=== PATIENT | female | born 1985 | race Caucasian/White ===

== ENCOUNTER 2025-04-21 02:06 | Emergency (ER) | payer OTHER, SELFPAY ==
--- OUTSIDE RECORDS SUMMARY | 2024-04-22 09:00 | XMS_ITS | Continuity of Care Document ---
Author Organization [facility] Address [address] [place] [address] Phone Care Team Providers Care Mushroom Picker Name Role Phone Alan CORTEZ, Iram Unavailable Unavailable Allergies, Adverse Reactions, Alerts Substance Reaction Status Criticality trimethoprim Active No Information sulfamethoxazole Active No Informat ion Medications Medication Instructions Dosage Effective Dates (start - stop) Status Comments isosorbide 20 mg-hydralazine 37.5 mg tablet take 2 tablet by oral route 3 times every day 2.00 tablet - Active fenofibrate 40 mg tablet take 2 tablet by oral route every day 80 MG - Active atorvastatin 40 mg tablet take 1 tablet by oral route every day 40 MG - Active lisinopril 5 mg tablet take 1 tablet by oral route every day 5 MG - Active clopidogrel 75 mg tablet take 1 tablet by oral route every day 75 MG - Active pregabalin 150 mg capsule take 1 capsule by oral route 2 times every day 150 MG - Active Jardiance 25 mg tablet take 1 tablet by oral route every day in the morning 25 MG - Active Trulicity 4.5 mg/0.5 mL subcutaneous pen injector inject (4.5MG) by subcutaneous route every week 4.5 MG - Active amoxicillin 500 mg capsule take 1 capsule by oral route every 8 hours 500 MG - No Longer Active ibuprofen 800 mg tablet take 1 tablet by oral route 3 times every day with food 800 MG - No Longer Active Vazalore 81 mg capsule take 1 capsule by oral route every day 81 MG - No Longer Active Procedures Procedure Date Oral Hygiene Instruction Intraoral-periapical 1st Film Limited Oral Eval Covid-19 Vaccine Administration 024 Covid-19 Vaccine, 50 Mcg Moderna 12y Plu s IMMUNIZATION ADMIN FLU VAC NO PRSV 4 RODRÍGUEZ 3 YRS+ Limited Oral Eval Nutrit Couns For Control Of Ralph Dis Mar Panoramic Film Oral Hygiene Instruction High Risk Intraoral-periapical 1st Film 3 Limited Oral Eval Extract; Erupted Th/exposted Rt 023 Bitewig-single Film Intraoral-periapical 1st Film 2 [id number] Additional Jun Nutrit Couns For Control Of Ralph Dis Jun Limited Oral Eval Extract; Erupted Th/exposted Rt 022 Extract; Erupted Th/exposted Rt 022 Pfizer COVID Vaccine Admin Dose 2 COVID-19 Pfizer Pfizer COVID Vaccine Admin Dose 1 COVID-19 Pfizer Limited Oral Eval Panoramic Film Tobacco Counseling Oral Hygiene Instruction Limited Oral Eval Intraoral-periapical 1st Film 5 Resin 4+ W/incis Angle Anterior 015 Extract; Erupted Th/exposted Rt 015 Extract; Erupted Th/exposted Rt 014 Oral Hygiene Instruction Comp Oral Eval New/estab Patient 2013 Intraoral-complete Series (bw) 14 Tobacco Counseling Oral Hygiene Instruction EST FP MEDICAID ODH SPECIMEN HANDLING (GC/CHLAMYDIA) Jun EST FP MEDICAID URINE TEST ODH SPECIMEN HANDLING (GC/CHLAMYDIA) Mar OFFICE/OUTPATIENT VISIT, EST INSERT INTRAUTERINE DEVICE URINE TEST Levonorgestrel iu contracept OFFICE/OUTPATIENT VISIT, NEW Condoms URINE TEST OFFICE/OUTPATIENT VISIT, EST URINE TEST Advance Directives Directive Yes / No Effective Date File Name No Information Encounters Encounter Description Practice Location Reason(s) For Visit Diagnoses Date Provider Providers Copied on Encounter [facility], [address] [place] [address], [id number], [place] tel:[phone] Dental Clinic dental limited (chief complaint) Encounter for screening for dental disorders 4 Alan Walden. . tel:[phone] [facility], [address] [place] [address], [id number], [place] tel:[phone] [facility] No Information 4 Visci DO Efraín. [address] [place] [address], [id number], [place]. tel:[phone] [facility], [address] [place] [address], [id number], [place] tel:[phone] [facility] No Information 3 Visci DO Efraín. [address], [place], [id number], [place]. tel:[phone] [facility], [address] [place] [address], [id number], [place] tel:[phone] Dental Clinic ext (chief complaint) Encounter for screening for dental disorders 3 Dereck Dunbar. [address] [place] [address], [id number], [place]. tel:[phone] [facility], [address] [place] [address], [id number], [place] tel:[phone] Dental Clinic DN (chief complaint) Encounter for screening for dental disorders 3 [facility] [address] [place], [address], [place]. tel:[phone] [facility], [address], [place], [id number], [place] tel:[phone] Dental Clinic er (chief complaint) Encounter for screening for dental disorders 3 [facility] [address] [place], [address], [place]. tel:[phone] [facility], [address], [place], [id number], [place] tel:[phone] Dental Clinic ER (chief complaint) Encounter for screening for dental disordersDental root caries 2 [facility]. [address] [place], [address], [place]. tel:[phone] [facility], [address], [place], [id number], [place] tel:[phone] [facility] No Information 1 Visci DO Efrían. [address], [place], [id number], [place]. tel:[phone] [facility], [address], [place], [id number], [place] tel:[phone] [facility] No Information 1 Visci DO Efraín. [address], [place], [id number], [place]. tel:[phone] [facility], [address], [place], [id number], [place] tel:[phone] Dental Clinic Dental Limited (chief complaint) Encounter for screening for dental disorders 9 [facility] Too[facility]it. [address], [place], [id number], [place]. tel:[phone] [facility], [address], [place], [id number], [place] tel:[phone] Dental Clinic Dental examination 5 [facility] October. [address] [place], [id number], [place]. tel:[phone] [facility], [address] [place], [id number], [place] tel:[phone] Dental Clinic Dental examination [facility] October. [address] [place], [id number], [place]. tel:[phone] [facility] [address] [facility] [place] [id number] [place] tel:[phone] Dental Clinic Dental examination [facility] October. [address] [place], [id number], [place]. tel:[phone] [facility], [address] [facility] [place] [id number], [place] tel:[phone] Dental Clinic Dental examination 4 [facility] October. [address] [facility] [place] [id number], [place]. tel:[phone] [facility], [address] [place], [id number], [place] tel:[phone] Dental Clinic Dental examination 4 [facility] October. [address] [facility] [place] [id number], [place]. tel:[phone] [facility], [address] [facility], [id number], [place] tel:[phone] [facility] No Information Dec-0 4- 2 Lamp Caitlyn. [address] [facility] [place] [id number], [place]. tel:[phone] [facility], [address] [facility], [id number], [place] tel:[phone] [facility] No Information Sep-0 - 1 Lamp Caitlyn. [address] [facility], [id number], [place]. tel:[phone] OFFICE/OUTPAT IENT VISIT, [facility], [address], [place], [id number], [place] tel:[phone] [facility] No Information Mar-0 9-201 0 Lamp Caitlyn. [address], [place], [id number], [place]. tel:[phone] [facility], [address], [place], [id number], [place] tel:[phone] [facility] No Information 9-201 0 Lamp Caitlyn. [address], [place], [id number], [place]. tel:[phone] OFFICE/OUTPAT IENT VISIT, [facility], [address], [place], [id number], [place] tel:[phone] [facility] No Information 0 5-201 0 Lamp Caitlyn. [address], [place], [id number], [place]. tel:[phone] OFFICE/OUTPAT IENT VISIT, [facility], [address], [place], [id number], [place] tel:[phone] [facility] No Information 0-200 8 Visci DO Efraín. [address], [place], [id number], [place]. tel:[phone] Family History Family Member Type Diagnosis Age At Onset No Information Immunizations Vaccine Date Status Comments Spikevax 12y+ administered Source: New Im munization Record Flulaval/ Fluarix administered Source: Ne w Immunization Record Pfizer COVID administered Source: New Imm unization Record Pfizer COVID administered Source: New Imm unization Record Payers Payer name Insurance type Covered libertarian ID Authoriza tion(s) [facility] [facility] [id number] D Medicaid [facility] [id number] [employer] Medicaid CFC 0223 [id number] [employer] Medicaid CFC 0223 [id number] Medicaid Wrap - [facility] [id number] [place] [id number] [place] [id number] Social History Type Description Quantity Date Captured Comments Alcohol Use Details Unknown Caffeine Use Details Unknown Tobacco Use Status Moderate cigarette s moker (10-19 cigs/day) Smoking Status Heavy tobacco smoker Sex Female Sexual Orientation Straight or heterosexual Gender Identity Female Vital Signs Date / Time: Height Weight BMI Pulse Rate Blood Pressure Temperature Respiratory Rate Body Surface Area Head Circumference Head Circ. Percentile Wt./All. Percentile BMI percentile Pulse Ox Inhaled Ox 1:01 PM 64.00 in 102.512 kg (226.00 lbs) 38.7 9 kg/m eter (2) Chief Complaint And Reason For Visit From encounter dated '04/22/2024 13:00'. dental limited (chief complaint). Description: dental limited Reason For Referral Reason For Referral No Information Plan Of Treatment Date Type Action Status Goal Depression screening. Due on due Goal Unhealthy drug use screening . Due on due Goal Hepatitis C screening. Due o n due Goal RLP. Due on due Goal Tdap. Due on due Goal Hep A. Due on du e Goal HPV. Due on due Goal Tdap Vaccine. Due on 2023 due Goal PRAPARE ASSESSMENT. Due on O due Goal Influenza vaccine. Due on Oc due Goal Depression screening. Due on due Goal PRAPARE ASSESSMENT. Due on F due Goal Influenza vaccine. Due on due Goal RLP. Due on due Goal Tdap Vaccine. Due on 2023 due Goal HPV. Due on due Goal Hepatitis C screening. Due o n due Goal Unhealthy drug use screening . Due on due Goal Tdap. Due on due Goal Hep A. Due on du e Goal RLP. Due on due Goal Influenza vaccine. Due on No due Goal Hep A. Due on du e Goal Tdap Vaccine. Due on 2022 due Goal Unhealthy drug use screening . Due on due Goal Tdap. Due on due Goal Depression screening. Due on due Goal PRAPARE ASSESSMENT. Due on N due Goal Hepatitis C screening. Due o n due Goal HPV. Due on due Goal Tdap Vaccine. Due on 2022 due Goal RLP. Due on due Goal Hep A. Due on du e Goal Depression screening. Due on due Goal Influenza vaccine. Due on Se due Goal PRAPARE ASSESSMENT. Due on S due Goal Tdap. Due on due Goal Tdap. Due on due Goal Depression screening. Due on due Goal PRAPARE ASSESSMENT. Due on M due Goal Influenza vaccine. Due on Ma due Goal Tdap Vaccine. Due on 2022 due Goal RLP. Due on due Goal Hep A. Due on du e Goal Hep A. Due on du e Goal RLP. Due on due Goal Influenza vaccine. Due on due Goal Tdap. Due on due Goal PRAPARE ASSESSMENT. Due on due Goal Depression screening. Due on due Goal PRAPARE ASSESSMENT. Due on due Goal Tdap. Due on due Goal RLP. Due on due Goal Depression screening. Due on due Goal Influenza vaccine. Due on due History Of Present Illness Encounter Date Complaint History Of Prese nt Illness dental limited dental limited ext ext DN er er ER Dental Limited Dental Limited Functional Status Date Functional Assessmen t No Information Instructions Date Instruction Additional Infor mation No Information Assessments Type Assessment Date No Information Patient Care Teams Name Effective Dates (start - stop) Status Members No Information
[2025-04-21 02:09] VITALS: BP 125/57; PULSE 78; TEMP 36.6; O2SAT 99; BMI 40.1
--- NOTE | 2025-04-21 02:17 | ED_ITS ---
HPI HPI - Extremity Injury (Lower) General Chief Complaint: Extremity Injury, Lower Stated Complaint: FALL Time Seen by Provider: 04/21/25 02:13 Source: patient Mode of arrival: ambulance History of Present Illness HPI Narrative: slipped at work and fell onto her left knee. She then fell onto her buttocks. Denies pain of her buttocks but complains of pain of her knee. Transferred to the ER via Squad. Denies other injury Related Data Home Medications ?Medication ?Instructions ?Recorded ?Confirmed atorvastatin 40 mg tablet mg 04/21/25 clopidogrel 75 mg tablet mg 04/21/25 ergocalciferol (vitamin D2) 1,250 04/21/25 mcg (50,000 unit) capsule fenofibrate nanocrystallized 145 mg PO 04/21/25 mg tablet isosorbide mononitrate 30 mg mg PO 04/21/25 tablet,extended release 24 hr lisinopril 5 mg tablet mg 04/21/25 metoprolol tartrate 25 mg tablet mg 04/21/25 pregabalin 150 mg capsule mg 04/21/25 Allergies Allergy/AdvReac Type Severity Reaction Status Date / Time sulfamethoxazole (From Allergy Unknown Unknown Verified 04/21/25 02:11 Bactrim) trimethoprim (From Bactrim) Allergy Unknown Unknown Verified 04/21/25 02:11 Review of Systems ROS Status of ROS 10 or more systems reviewed and unremark able except as noted in history and below PFSH PFSH Social History Little interest or pleasure in doing things: not at all Feeling down, depressed, or hopeless: not at all Exam Constitutional Vital Signs, click to edit/add: Last Vital Signs Temp 97.9 F 04/21/25 02:09 Pulse 78 04/21/25 02:09 Resp 18 04/21/25 02:09 BP 125/57 04/21/25 02:09 Pulse Ox 99 04/21/25 02:09 O2 Del Method Room Air 04/21/25 02:09 Common normals: no apparent distress, average body habitus, oriented x3, no limitations, healthy appearing, alert and well nourished [facility] Common normals: normocephalic and head/scalp atraumatic Eye Common normals: EOMs intact bilaterally and conjunctivae normal Respiratory Common normals: normal respiratory effort, no retractions, no use of accessory muscles and clear to auscultation bilaterally Cardio Common normals: regular rate, regular rhythm, S1 normal heart sound and S2 normal heart sound Extremity Other: swelling overlying patella left knee Neuro Common normals: oriented x3, CN's II-XII intact bilaterally, moves all extremities and no focal motor deficits Psych Appearance: grossly normal Course Vital Signs Vital signs: Vital Signs Temperature 97.9 F 04/21/25 02:09 Pulse Rate 78 04/21/25 02:09 Respiratory Rate 18 04/21/25 02:09 Blood Pressure 125/57 04/21/25 02:09 Pulse Oximetry 99 04/21/25 02:09 Oxygen Delivery Method Room Air 04/21/25 02:09 Temperature 97.9 F 04/21/25 02:09 Pulse Rate 78 04/21/25 02:09 Respiratory Rate 18 04/21/25 02:09 Blood Pressure 125/57 04/21/25 02:09 Pulse Oximetry 99 04/21/25 02:09 Oxygen Delivery Method Room Air 04/21/25 02:09 MDM - Extremity Injury (Lower) MDM Narrative Medical decision making narrative: patient fell at work onto her left knee. Arrives via Squad. has focal swelling overlying the left patella. xray with comminuted fracture of the patella. Discussed with orthopedist Dr Murray and he said the patient could follow up with Dr Rivas tomorrow or she can follow up with orthopedics in [place]. Patient placed in knee immobilizer and discharged Discharge Plan Discharge Chief Complaint: Extremity Injury, Lower Clinical Impression: Comminuted fracture of left patella Patient Disposition: Home, Self-Care Prescriptions / Home Meds: No Action atorvastatin 40 mg tablet isosorbide mononitrate 30 mg tablet extended release 24 hr PO clopidogrel 75 mg tablet lisinopril 5 mg tablet ergocalciferol (vitamin D2) 1,250 mcg (50,000 unit) capsule metoprolol tartrate 25 mg tablet pregabalin 150 mg capsule fenofibrate nanocrystallized 145 mg tablet PO Print Language: Maltese Instructions: Crutch Instructions (ED), Patellar Fracture (ED) Additional Instructions: keep leg elevated . Follow up with Dr Rivas tomorrow Referrals: Raul Rivas DO [Physician, Orthopedics] - 04/22/25 Physician,Non-Staff, [Physician] - 1 week Discharge Date/Time: 04/21/25 03:42
--- NOTE | 2025-04-21 02:19 | XR_ITS ---
[facility] [place] [id number] Patient Name: EMI VAUGHN MRN: [id number] date: 1985 Sex: F Assigned Patient Location: ER Current Patient Location: Accession/Order Number: [id number] Exam Date: 04/21/2025 02:30 Report Date: 04/21/2025 07:23 At the request of: LOIS SHARMA MD Procedure: XR knee LT 3V LEFT KNEE - 3 views COMPARISON: None CLINICAL DATA: Left knee pain and swelling following fall. AP, lateral and internal oblique views were obtained. There is a comminuted, displaced intra-articular fracture at the mid and lower aspect of the patella. The remaining bony structures are intact. No dislocation is seen. A small amount of joint fluid is present. There is also mild anterior soft tissue swelling. XR/XR knee LT 3V IMPRESSION: COMMINUTED PATELLAR FRACTURE. Impression dictated by: Kim Anderson M.D. 04/21/2025 7:23 AM Dictation Location: [place] [address] Electronically authenticated by: [id number] Y Date: 04/21/2025 07:23
--- OUTSIDE RECORDS SUMMARY | 2025-04-21 02:26 | XMS_ITS | Encounter Summary ---
Author Organization [facility] Address [address] [facility] [place] [address] Care Team Providers Care Pathologist Assistant Name Role Phone Mark Anthony Carvajal Primary Care Provider [phone] Encounter Details Date Type Department Care Team ([facility] st Contact Info) Description 01/25/2023 Abstract [facility] [address] [facility] [address] [place] [address] Danielle Rivera, PT [address] [facility] [address] [place] [address] Social History Tobacco Use Types Packs/Day Years Used Date Smoking Tobacco: Every Day Cigarettes Smokeless Tobacco: Never Comments:6-10 cigs a day. Alcohol Use Standard Drinks/Week Comments Never 0 (1 standard drink = 0.6 oz pur e alcohol) Caffeine intake: occasional AUDIT-C Answer Date Recorded Q1: How often do you have a drink containing alcohol? Never 11/29/2022 Q2: How many drinks containi ng alcohol do you have on a typical day when you are drinking? Patient does not drink Q3: How often do you have si x or more drinks on one occasion? Never 11/29/2022 PHQ-2 Answer Date Recorded Patient Health Questionnaire-2 Score 0 12/18/2022 Comments Unknown Sex and Gender Information Value Date Recorded Sex Assigned at Not on file Legal Sex Female 7:01 PM EDT Gender Identity Not on file Sexual Orientation Not on file COVID-19 Exposure Response Date Recorded In the last 10 days, have yo u been in contact with someone who was confirmed or suspected to have Coronavirus/COVID-19? No / Unsure 01/23/2023 1:15 PM EDT documented as of this encounter Plan of Treatment Upcoming Encounters Date Type Department Care Team (Late st Contact Info) Description 04/30/2025 12:45 PM EDT Ancillary Procedure [facility] [place] [facility] [address] [facility] [place] [address] 04/30/2025 1:45 PM EDT Ancillary Procedure [facility] [place] [facility] [address] [place] [address] documented as of this encounter Visit Diagnoses Not on filedocumented in this encounter Care Teams Pathologist Assistant Relationship Specialty Start Date End Date Mark Anthony Carvajal DO [address] [place] [address] PCP - General Family Medicine 11/22/22 documented as of this encounter
--- OUTSIDE RECORDS SUMMARY | 2025-04-21 02:26 | XMS_ITS | Encounter Summary ---
Author Organization [facility] Address [address] [place] [address] Care Team Providers Care New Car Driver Name Role Phone Mark Anthony Carvajal Primary Care Provider [phone] Encounter Details Date Type Department Care Team (Late Contact Info) Description 12/25/2023 Orders Only [facility] [address] [place] [phone] Chelita Lofton LPN [address] [place] [address] Pre-op testing (Primary Dx) Social History Tobacco Use Types Packs/Day Years Used Date Smoking Tobacco: Every Day Cigarettes Smokeless Tobacco: Never Comments:6-10 cigs a day. Alcohol Use Standard Drinks/Week Comments Never 0 (1 standard drink = 0.6 oz pure alcohol) Caffeine intake: more than 4 cups per day AUDIT-C Answer Date Recorded Q1: How often do you have a drink containing alcohol? Never 11/29/2022 Q2: How many drinks containi ng alcohol do you have on a typical day when you are drinking? Patient does not drink Q3: How often do you have si x or more drinks on one occasion? Never 11/29/2022 PHQ-2 Answer Date Recorded Patient Health Questionnaire-2 Score 0 10/03/2023 Comments Unknown Sex and Gender Information Value Date Recorded Sex Assigned at Not on file Legal Sex Female 7:01 PM EDT Gender Identity Not on file Sexual Orientation Not on file documented as of this encounter Plan of Treatment Upcoming Encounters Date Type Department Care Team (Late Contact Info) Description 04/30/2025 12:45 PM EDT Ancillary Procedure [facility] [address] [place] [id number] 04/30/2025 1:45 PM EDT Ancillary Procedure [facility] [place] [facility] [address] [place] [phone] Scheduled Orders Name Type Priority Associated Diagnoses Orde r Schedule CBC auto differential Lab Routine Pre-op testing Expected: 12/25/2023 (Approximate), Expires: 12/24/2024 Chem 7, basic metabolic panel Lab Routine Pre-op testing Expected: 12/25/2023 (Approximate), Expires: 12/24/2024 documented as of this encounter Visit Diagnoses Diagnosis Pre-op testing- Primary Unspecified pre-operative examination documented in this encounter Care Teams New Car Driver Relationship Specialty Start Date End Date Mark Anthony Carvajal DO [address] [place] [address] PCP - General Family Medicine 11/22/22 documented as of this encounter
--- OUTSIDE RECORDS SUMMARY | 2025-04-21 02:26 | XMS_ITS | Encounter Summary ---
Author Organization [facility] Address [address] [place] [address] Care Team Providers Care Speed Belt Sander Tender Name Role Phone Mark Anthony Carvajal Primary Care Provider [phone] Encounter Details Date Type Department Care Team (Late Contact Info) Description 03/14/2023 Abstract [facility] [place] [facility] [address] [place] [phone] Christina Arnold, COMMUNICATIONS SUPERVISOR [address] [place] [address] Social History Tobacco Use Types Packs/Day Years [...] Ancillary Procedure [facility] [address] [place] [address] 04/30/2025 1:45 PM EDT Ancillary Procedure [facility] [place] [facility] [address] [place] [address] documented as of this encounter Visit Diagnoses Not on filedocumented in this encounter Care Teams Speed Belt Sander Tender Relationship Specialty Start Date End Date Mark Anthony Carvajal DO [address] [place] [address] PCP - General Family Medicine 11/22/22 documented as of this encounter
--- OUTSIDE RECORDS SUMMARY | 2025-04-21 02:26 | XMS_ITS | Encounter Summary ---
Author Organization [facility] Address [address] [place] [address] Phone Care Team Providers Care Equipment Installer Name Role Phone Christina Arnold Primary Care Provider + Encounter Details Date Type Department Care Team (Late st Contact Info) Description 08/31/2021 Orders Only [facility] [address] [place] [address] Conversion, Onbase Social History Tobacco Use Types Packs/Day Years Used Date Smoking Tobacco: Never Assessed Comments Unknown Sex and Gender Information Value Date Recorded Sex Assigned at Not on file Legal Sex Female 4:45 PM EST Gender Identity Not on file Sexual Orientation Not on file documented as of this encounter Plan of Treatment Scheduled Orders Name Type Priority Associated Diagnoses Orde r Schedule OUTSIDE LAB SCAN Lab Ordered: 08/31/2021 documented as of this encounter Visit Diagnoses Not on filedocumented in this encounter Care Teams Equipment Installer Relationship Specialty Start Date End Date Christina Arnold APRN-CNP [address] [place] [address] PCP - General 04/10/17 documented as of this encounter
--- OUTSIDE RECORDS SUMMARY | 2025-04-21 02:26 | XMS_ITS | Encounter Summary ---
Author Organization [facility] Address [address] [facility] [place] [address] Care Team Providers Care Telegraph Office Telephone Clerk Name Role Phone Mark Anthony Carvajal Primary Care Provider [phone] Encounter Details Date Type Department Care Team (Late Contact Info) Description 09/25/2023 Abstract [facility] [place] [facility] [address] [place] [phone] Christina Arnold, CONTENT DEVELOPER [address] [place] [address] Social History Tobacco Use Types Packs/Day Years [...] Description 04/30/2025 12:45 PM EDT Ancillary Procedure [facility] [address] [place] [address] 04/30/2025 1:45 PM EDT Ancillary Procedure [facility] [place] [facility] [address] [place] [address] documented as of this encounter Visit Diagnoses Not on filedocumented in this encounter Care Teams Telegraph Office Telephone Clerk Relationship Specialty Start Date End Date Mark Anthony Carvajal DO [address] [place] [address] PCP - General Family Medicine 11/22/22 documented as of this encounter
--- OUTSIDE RECORDS SUMMARY | 2025-04-21 02:26 | XMS_ITS | Encounter Summary ---
Author Organization [facility] Address [address] [place] [address] Phone Care Team Providers Care User Experience Designer Name Role Phone Christina Arnold Primary Care Provider + Encounter Details Date Type Department Care Team (Late st Contact Info) Description 05/18/2019 Orders Only [facility] [address] [place] [address] Conversion, Onbase Social History Tobacco Use Types [...] r Schedule OUTSIDE LAB SCAN Lab Ordered: 05/18/2019 documented as of this encounter Visit Diagnoses Not on filedocumented in this encounter Care Teams User Experience Designer Relationship Specialty Start Date End Date Christina Arnold APRN-CNP [address] [facility] [address] [place] [address] PCP - General 04/10/17 documented as of this encounter
--- OUTSIDE RECORDS SUMMARY | 2025-04-21 02:26 | XMS_ITS | Encounter Summary ---
Author Organization [facility] Address [address] [facility] [place] [address] Care Team Providers Care Biologics Specialist Name Role Phone Mark Anthony Carvajal Primary Care Provider [phone] Encounter Details Date Type Department Care Team (Late Contact Info) Description 06/20/2023 Orders Only [facility] [place] [facility] [address] [facility] [address] [place] [address] A, Unknown Practice [address] [phone] Social History Tobacco Use Types Packs/Day Years [...] Procedure [facility] [address] [place] [phone] 04/30/2025 1:45 PM EDT Ancillary Procedure [facility] [address] [place] [phone] documented as of this encounter Procedures Procedure Name Priority Date/Time Associated Diagnosis Comments MICROALBUMIN / CREATININE URINE RATIO Routine 06/17/2023 11:50 AM EST NM KIDNEY GFR Routine 06/17/2023 11:50 AM EST HEMOGLOBIN A1C Routine 06/17/2023 11:50 AM EST documented in this encounter Results * (ABNORMAL) Hemoglobin A1c (06/17/2023 11:50 AM EST) HEMOGLOBIN A1C 8.6 Blood Venous blood specimen / Unknown us Unknown Practice A LAB BLOOD ORDERABLES Edited R esult - Final * Microalbumin / creatinine urine ratio (06/17/2023 11:50 AM EST) MICROALBUMIN, URINE 0.7 URINE CREAT 64 Urine Urine specimen obtained by clean catch procedure / Unknown us Unknown Practice A LAB URINE ORDERABLES Edited R esult - Final * NM kidney GFR (06/17/2023 11:50 AM EST) Anatomical Region Laterality Modality Body Nuclear Medicine us Unknown Practice A IMG NM PROCEDURES Edited Resu lt - Final documented in this encounter Visit Diagnoses Not on filedocumented in this encounter Care Teams Biologics Specialist Relationship Specialty Start Date End Date Mark Anthony Carvajal DO [address] [place] [address] PCP - General Family Medicine 11/22/22 documented as of this encounter
--- OUTSIDE RECORDS SUMMARY | 2025-04-21 02:26 | XMS_ITS | Encounter Summary ---
Author Organization [facility] Address [address] [facility] [place] [address] Care Team Providers Care Strategy Specialist Name Role Phone Mark Anthony Carvajal DO Primary Care Provider [phone] Encounter Details Date Type Department Care Team (Late Contact Info) Description 10/15/2023 Abstract [facility] [facility] [address] [place] [phone] Mark Anthony Carvajal DO [address] [place] [address] Social History Tobacco Use Types Packs/Day Years [...] [facility] [address] [place] [address] 04/30/2025 1:45 PM EDT Ancillary Procedure [facility] [place] [facility] [address] [place] [address] documented as of this encounter Visit Diagnoses Not on filedocumented in this encounter Care Teams Strategy Specialist Relationship Specialty Start Date End Date Mark Anthony Carvajal DO [address] [place] [address] PCP - General Family Medicine 11/22/22 documented as of this encounter
--- OUTSIDE RECORDS SUMMARY | 2025-04-21 02:26 | XMS_ITS | Encounter Summary ---
Author Organization [facility] Address [address] [facility] [place] [address] Care Team Providers Care Paster Supervisor Name Role Phone Mark Anthony Carvajal Primary Care Provider [phone] Reason for Visit * Reason Onset Date Comments Med Refill 04/20/2025 Encounter Details Date Type Department Care Team (Late Contact Info) Description 04/20/2025 Refill [facility] [place] [facility] [address] [facility] [address] [place] [phone] Jyotsna Flynn MA Type 2 diabetes mellitus with diabetic polyneuropathy (HCC) Social History Tobacco Use Types Packs/Day Years [...] Date Recorded Patient Health Questionnaire-2 Score 0 03/31/2025 Comments Unknown Sex and Gender Information Value [...] [facility] [address] [place] [address] 04/30/2025 1:45 PM EDT Ancillary Procedure [facility] [place] [facility] [address] [place] [address] documented as of this encounter Visit Diagnoses Diagnosis Type 2 diabetes mellitus with diabetic polyneuropathy (HCC) documented in this encounter Care Teams Paster Supervisor Relationship Specialty Start Date End Date Mark Anthony Carvajal DO [address] [place] [address] PCP - General Family Medicine 11/22/22 documented as of this encounter
--- OUTSIDE RECORDS SUMMARY | 2025-04-21 02:26 | XMS_ITS | Encounter Summary ---
Author Organization [facility] Address [address] [place] [address] Care Team Providers Care Custom Shoemaker Name Role Phone Mark Anthony Carvajal Primary Care Provider [phone] Reason for Visit * Reason Comments Med Refill Encounter Details Date Type Department Care Team ([facility] Contact Info) Description 06/01/2023 Refill [facility] [address] [facility] [address] [place] [phone] Luna Underwood MD [address] [facility] [address] [place] [address] Vaginitis due to Trichomonas; Vaginal itching; Chronic vulvovaginitis Social History Tobacco Use Types Packs/Day Years [...] [facility] [place] [facility] [address] [place] [address] 04/30/2025 1:45 PM EDT Ancillary Procedure [facility] [address] [place] [address] documented as of this encounter Visit Diagnoses Diagnosis Vaginitis due to Trichomonas Vaginal itching Pruritus of genital organs Chronic vulvovaginitis Unspecified vaginitis and vulvovaginitis documented in this encounter Care Teams Custom Shoemaker Relationship Specialty Start Date End Date Mark Anthony Carvajal DO [address] [place] [address] PCP - General Family Medicine 11/22/22 documented as of this encounter
--- OUTSIDE RECORDS SUMMARY | 2025-04-21 02:26 | XMS_ITS | Encounter Summary ---
Author Organization [facility] Address [address] [place] [address] Phone Care Team Providers Care Senior C Web Developer Name Role Phone Christina Arnold Primary Care Provider + Encounter Details Date Type Department Care Team (Late st Contact Info) Description 01/27/2020 Orders Only [facility] [address] [place] [address] Conversion, Onbase Social History Tobacco Use Types [...] r Schedule OUTSIDE LAB SCAN Lab Ordered: 01/27/2020 documented as of this encounter Visit Diagnoses Not on filedocumented in this encounter Care Teams Senior C Web Developer Relationship Specialty Start Date End Date Christina Arnold APRN-CNP [address] [facility] [address] [place] [address] PCP - General 04/10/17 documented as of this encounter
--- OUTSIDE RECORDS SUMMARY | 2025-04-21 02:26 | XMS_ITS | Encounter Summary ---
Author Organization [facility] Address [address] [facility] [place] [address] Care Team Providers Care Signs And Displays Sales Representative Name Role Phone Mark Anthony Carvajal Primary Care Provider [phone] Encounter Details Date Type Department Care Team (Late Contact Info) Description 05/14/2023 Clinisync Result Encounter [facility] External Department Unsolicited Provider, Generic External Data Social History Tobacco Use Types Packs/Day Years [...] Ancillary Procedure [facility] [place] [facility] [address] [place] [address] 04/30/2025 1:45 PM EDT Ancillary Procedure [facility] [place] [facility] [address] [place] [address] documented as of this encounter Procedures Procedure Name Priority Date/Time Associated Diagnosis Comments NUCLEAR STRESS TEST EXERCISE (CARD) 05/14/2023 10:57 AM EST documented in this encounter Results * NUCLEAR STRESS TEST EXERCISE (CARD) (05/14/2023 10:57 AM EST) Anatomical Region Laterality Modality Radiographic Shannan ging 05/14/2023 10:5 7 AM EST Narrative 05/14/2023 5:58 PM EST Interpreted By: Clair Liriano and Giannuzzi Michael STUDY: MYOCARDIAL PERFUSION STRESS TEST WITH LEXISCAN Performing facility: [facility] [place], [address] [place] [address], [address], [place] [address] [facility] Provider: Chaim Javed DO, FACC PCP: Dr. Arnold Supervising provider: Kandy Patel MD, FACC INDICATION: Chest Pain; CAD; HISTORY: Gender: F; Age: 37 y/o ; Height: HT 165.1 cm cm; Weight: WT 102.513 kg kg. CAD; High Cholesterol; Diabetes; Previous KS; HTN; Chest Pain; SOB; Denies smoking. Cardiac catheterization on 2018. PTCA on 2018. COMPARISON: Previous nuclear testing completed [id number] at [facility]. ACCESSION NUMBER(S): [id number] ORDERING CLINICIAN: NINA JAVED TECHNIQUE: ONE DAY protocol. Stress injection: Date:05-14-23, 31.0 mCi of Myoview IV 20 seconds after rapid injection of Lexiscan. Rest injection: Date: 05-14-23, 10.0 mCi of Myoview IV at rest. The patient had a rapid injection of 0.4 mg of Lexiscan IV over 10 seconds. Imaging was performed by gated tomographic technique. Reason for Lexiscan: dizziness/unsteady/fall risk STRESS TEST DATA: Resting heart rate was 74 BPM. Resting blood pressure was 106/66 mmHg. Peak blood pressure was 108/62 mmHg. Peak heart rate was 101 BPM. TEST TERMINATED DUE TO: Protocol completed FINDINGS: STRESS TEST RESULTS: Resting electrocardiogram revealed normal sinus rhythm. There were no significant ischemic ECG changes or dysrhythmias. The patient did not have chest pains/symptoms during procedure. There was a normal recovery phase. IMAGING RESULTS: Image quality was good. Rest and stress tomographic images were reviewed and revealed normal perfusion without evidence of ischemia, myocardial infarction, or left ventricular dilatation with stress. Overall left ventricular systolic function appeared to be normal without regional wall motion abnormalities. Ejection fraction was 58%. TID is 1.13 and is normal. There were no evidence of attenuation artifact. IMPRESSION: Normal Lexiscan Myoview cardiac perfusion stress test. No evidence of ischemia or myocardial infarction by perfusion imaging. Normal left ventricular systolic function, ejection fraction 58%. No change when compared to prior study. Signed by: Clair Liriano 05/14/2023 5:58 PM Dictation workstation: [id number] Procedure Note Radiology, Radiologist, MD - 05/14/2023 Interpreted By: Clair Liriano and Giannuzzi Michael STUDY: MYOCARDIAL PERFUSION STRESS TEST WITH LEXISCAN Performing facility: [facility] [place], [address] [place] [address], [address], [address] Provider: Chaim Javed DO, [facility] PCP: Dr. Arnold Supervising provider: Kandy Patel MD, [facility] INDICATION: Chest Pain; CAD; HISTORY: Gender: F; Age: 37 y/o ; Height: HT 165.1 cm cm; Weight: WT 102.513 kg kg. CAD; High Cholesterol; Diabetes; Previous KS; HTN; Chest Pain; SOB; Denies smoking. Cardiac catheterization on 2018. PTCA on 2018. COMPARISON: Previous nuclear testing completed at [facility]. ACCESSION NUMBER(S): [id number] ORDERING CLINICIAN: NINA JAVED TECHNIQUE: ONE DAY protocol. Stress injection: Date:05-14-23, 31.0 mCi of Myoview IV 20 seconds after rapid injection of Lexiscan. Rest injection: Date: 05-14-23, 10.0 mCi of Myoview IV at rest. The patient had a rapid injection of 0.4 mg of Lexiscan IV over 10 seconds. Imaging was performed by gated tomographic technique. Reason for Lexiscan: dizziness/unsteady/fall risk STRESS TEST DATA: Resting heart rate was 74 BPM. Resting blood pressure was 106/66 mmHg. Peak blood pressure was 108/62 mmHg. Peak heart rate was 101 BPM. TEST TERMINATED DUE TO: Protocol completed FINDINGS: STRESS TEST RESULTS: Resting electrocardiogram revealed normal sinus rhythm. There were no significant ischemic ECG changes or dysrhythmias. The patient did not have chest pains/symptoms during procedure. There was a normal recovery phase. IMAGING RESULTS: Image quality was good. Rest and stress tomographic images were reviewed and revealed normal perfusion without evidence of ischemia, myocardial infarction, or left ventricular dilatation with stress. Overall left ventricular systolic function appeared to be normal without regional wall motion abnormalities. Ejection fraction was 58%. TID is 1.13 and is normal. There were no evidence of attenuation artifact. IMPRESSION: Normal Lexiscan Myoview cardiac perfusion stress test. No evidence of ischemia or myocardial infarction by perfusion imaging. Normal left ventricular systolic function, ejection fraction 58%. No change when compared to prior study. Signed by: Clair Liriano 05/14/2023 5:58 PM Dictation workstation: [id number] Generic External Data Provider IMG XR PROCEDURES Final Result documented in this encounter Visit Diagnoses Not on filedocumented in this encounter Care Teams Signs And Displays Sales Representative Relationship Specialty Start Date End Date Mark Anthony Carvajal DO [address] [address] PCP - General Family Medicine 11/22/22 documented as of this encounter
--- OUTSIDE RECORDS SUMMARY | 2025-04-21 02:26 | XMS_ITS | Encounter Summary ---
Author Organization [facility] Address [address] [place] [address] Phone Care Team Providers Care Commercial Internship Name Role Phone Christina Arnold Primary Care Provider + Encounter Details Date Type Department Care Team (Late st Contact Info) Description 05/19/2019 Orders Only [facility] [address] [place] [address] Conversion, Onbase Social History Tobacco Use Types [...] r Schedule OUTSIDE LAB SCAN Lab Ordered: 05/19/2019 OUTSIDE LAB SCAN Lab Ordered: 05/19/2019 documented as of this encounter Visit Diagnoses Not on filedocumented in this encounter Care Teams Commercial Internship Relationship Specialty Start Date End Date Christina Arnold APRN-CNP [address] [place] [address] PCP - General 04/10/17 documented as of this encounter
--- OUTSIDE RECORDS SUMMARY | 2025-04-21 02:26 | XMS_ITS | Encounter Summary ---
Author Organization [facility] Address [address] [place] [address] Care Team Providers Care Insole And Outsole Preparer Name Role Phone Mark Anthony Carvajal Primary Care Provider [phone] Encounter Details Date Type Department Care Team (Late Contact Info) Description 04/26/2023 Abstract [facility] [place] [facility] [address] [place] [phone] Christina Arnold, STATISTICAL GENETICIST [address] [place] [address] Social History Tobacco Use Types Packs/Day Years [...] [facility] [address] [place] [address] 04/30/2025 1:45 PM EDT Ancillary Procedure [facility] [place] [facility] [address] [place] [place] [address] documented as of this encounter Visit Diagnoses Not on filedocumented in this encounter Care Teams Insole And Outsole Preparer Relationship Specialty Start Date End Date Mark Anthony Carvajal DO [address] [place] [address] PCP - General Family Medicine 11/22/22 documented as of this encounter
--- OUTSIDE RECORDS SUMMARY | 2025-04-21 02:26 | XMS_ITS | Encounter Summary ---
Author Organization [facility] Address [address] [place] [address] Phone Care Team Providers Care Bread Baker Name Role Phone Christina Arnold EMERGENCY MEDICAL SERVICE MANAGER-PARTICLEBOARD FACTORY WORKER Primary Care Provider + Encounter Details Date Type Department Care Team (Late st Contact Info) Description 04/27/2023 Scanned Document [facility] [address] [place] [phone] Scanning, Generic Provider Social History Tobacco Use Types Packs/Day Years Used Date Smoking Tobacco: Every Day Cigarettes Smokeless Tobacco: Never Alcohol Use Standard Drinks/Week Comments Never 0 (1 standard drink = 0.6 oz pur e alcohol) PHQ-2 Answer Date Recorded Patient Health Questionnaire-2 Score 0 04/10/2023 Comments Unknown Sex and Gender Information Value Date Recorded Sex Assigned at Not on file Legal Sex Female 4:45 PM EST Gender Identity Not on file Sexual Orientation Not on file COVID-19 Exposure Response Date Recorded In the last 10 days, have yo u been in contact with someone who was confirmed or suspected to have Coronavirus/COVID-19? No / Unsure 04/10/2023 8:01 AM EDT documented as of this encounter Plan of Treatment Not on file documented as of this encounter Procedures Procedure Name Priority Date/Time Associated Diagnosis Comments OUTSIDE IMAGING SCAN 04/27/2023 documented in this encounter Results * OUTSIDE IMAGING SCAN (04/27/2023) Anatomical Region Laterality Modality Other Narrative 04/27/2023 Ordered by an unspecified provider. us Generic Provider Scanning OUTSIDE SCAN Final Result documented in this encounter Visit Diagnoses Not on filedocumented in this encounter Care Teams Bread Baker Relationship Specialty Start Date End Date Christina Arnold APRN-ILIANA [address] [place] [address] PCP - General 04/10/17 documented as of this encounter
--- OUTSIDE RECORDS SUMMARY | 2025-04-21 02:26 | XMS_ITS | Encounter Summary ---
Author Organization [facility] Address [address] [place] [address] Phone Care Team Providers Care Shredder Tender Peat Name Role Phone Christina Arnold Primary Care Provider + Encounter Details Date Type Department Care Team (Late st Contact Info) Description 05/05/2019 Orders Only [facility] [address] [place] [address] Conversion, Onbase Social History Tobacco Use Types [...] r Schedule OUTSIDE LAB SCAN Lab Ordered: 05/05/2019 documented as of this encounter Visit Diagnoses Not on filedocumented in this encounter Care Teams Shredder Tender Peat Relationship Specialty Start Date End Date Christina Arnold APRN-CNP [address] [facility] [address] [place] [address] PCP - General 04/10/17 documented as of this encounter
--- OUTSIDE RECORDS SUMMARY | 2025-04-21 02:26 | XMS_ITS | Clinical Summary ---
Author Organization [facility] Healthcare Address [address] [place] [address] Care Team Providers Care Enameler Name Role Phone Alena Mark Anthony Stephens Primary Care Provider [phone] Allergies Active Allergy Reactions Criticality Noted Date Comments Liraglutide Unknown 10/25/2021 Metformin Unknown 10/25/2021 Sulfamethoxazole 01/16/2024 Other Reaction(s): Nausea, vomiting Sulfamethoxazole-Trimetho prim Unknown,GI intolerance 09/01/2019 Nausea and vomiting Trimethoprim GI intolerance 12/28/2019 Medications metoprolol tartrate (Lopressor) 25 MG tablet Take 25 mg by mouth. 07/04/20 22 Active atorvastatin (Lipitor) 40 MG tablet Take 40 mg by mouth in the morning. Active clopidogrel (Plavix) 75 MG tablet Take 75 mg by mouth in the morning. Active Continuous Blood Gluc Sensor (Dexcom G6 Sensor) misc USE DIRECTED CHANGE EVERY 10 DAYS (NEEDS PA) 11/14/19 23 Active Continuous Blood Gluc Transmit (Dexcom G6 transmitter) misc USE DIRECTED AND CHANGE EVERY 90 DAYS (NEEDS PA) 08/28/19 23 Active Jardiance 25 MG 1 (one) time each day at the same time. 07/04/20 22 Active fenofibrate (Tricor) 145 MG tablet Take 145 mg by mouth in the morning. 11/01/19 23 Active Insulin Lispro 100 UNIT/ML solution DIRECTED 100 UNITS TOTAL A DAY VIA INSULIN PUMP 90 11/08/19 23 Active lisinopril 5 MG tablet Take 5 mg by mouth in the morning. Active nitroglycerin (Nitrostat) 0.4 MG SL tablet TAKE 1 TAB UNDER TONGUE EVERY 5 MINS UP TO 3 DOSES NEEDED FOR CHEST PAIN CALL 911 IF PAIN PERSIST Active isosorbide mononitrate ER (Imdur) 30 MG 24 hr tablet 09/28/19 24 Active ergocalciferol (Vitamin D2) 1.25 MG (36676 UT) capsuleIndications :Vitamin D deficiency, unspecified TAKE 1 CAPSULE BY MOUTH ONCE A WEEK FOR 90 DAYS 12 capsule 3 07/29/19 25 Active fluticasone (Flonase) 50 MCG/ACT nasal spray Twice daily 08/29/19 25 Active loratadine (Claritin) 10 MG tablet Daily 08/29/19 25 Active pseudoephedrine (Sudafed) 60 MG tabletIndications: Acute dysfunction of right eustachian tube Take 1 tablet (60 mg) by mouth every 6 (six) hours if needed for congestion 30 tablet 09/01/19 25 Active cetirizine (ZyrTEC) 10 MG tabletIndications: Allergic rhinitis, unspecified seasonality, unspecified trigger Take 1 tablet (10 mg) by mouth Daily 90 tablet 3 09/24/19 25 Active Ozempic, 2 MG/DOSE, 8 MG/3ML solution pen-injector 01/07/20 25 Active Continuous Glucose Lumber Yard Worker (Dexcom G7 Lumber Yard Worker) device .MEDSUPPLY 01/14/20 25 Active Continuous Glucose Sensor (Dexcom G7 15 Day Sensor) misc 09/25/19 24 Active Mounjaro 5 MG/0.5ML solution auto-injector 02/22/20 25 Active pregabalin (Lyrica) 150 MG capsuleIndications :Type 2 diabetes mellitus with diabetic polyneuropathy (HCC) Take 1 capsule (150 mg) by mouth in the morning and 1 capsule (150 mg) in the evening and 1 capsule (150 mg) before bedtime. 90 capsule 04/20/20 25 Active pregabalin (Lyrica) 150 MG capsuleIndications :Type 2 diabetes mellitus with diabetic polyneuropathy (HCC) Take 1 capsule (150 mg) by mouth in the morning and 1 capsule (150 mg) in the evening and 1 capsule (150 mg) before bedtime. 90 capsule 03/12/20 25 025 Discontin ued(Reord er) Active Problems Problem Noted Date Diagnosed Date Acquired hammer toe deformity of lesser toe of l eft foot 02/08/2023 Acquired hammer toe deformity of lesser toe of r ight foot 02/08/2023 Adenomyosis 02/08/2023 MRSA (methicillin resistant Staphylococcus aureus) infection 02/08/2023 Skin ulcer of left great toe, limited to breakdo wn of skin 02/08/2023 Adhesive capsulitis of left shoulder 01/22/2023 Impingement syndrome of shoulder region, left Trichomoniasis 01/16/2023 Current smoker 11/29/2022 Overview (11/29/2022): Added secondary to documentation in Social History. 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 9 Menorrhagia with irregular cycle 03/16/2019 Metrorrhagia 03/04/2019 Major depressive disorder, single episode, moder ate 08/01/2018 Neuropathy of both feet 02/25/2018 Iron deficiency anemia 09/02/2017 Leukocytosis 04/22/2017 Thrombocytosis 04/22/2017 Excessive and frequent menstruation 04/10/2017 Diabetic peripheral neuropathy 09/28/2016 Hyperglycemia due to type 2 diabetes mellitus Mixed hyperlipidemia 09/28/2016 Type 2 diabetes mellitus wit h other diabetic neurological complication 09/28/2016 Vitamin D insufficiency 09/28/2016 Encounters Date Type Department Care Team Description 04/20/2025 Refill [facility] [address] [place] [address] Jyotsna Flynn MA Type 2 diabetes mellitus with diabetic polyneuropathy (HCC) 03/31/2025 9:00 AM EDT Office Visit [facility] [address] [place] [address] Christina Arnold NP Radicular pain of right upper extremity (Primary Dx); Lumbar back pain with radiculopathy affecting right lower extremity; Cervical pain 03/31/2025 Bamboo flowsheet [facility] [address] [place] [address] Christina Arnold NP 03/31/2025 Travel 03/30/2025 Abstract [facility] [address] [place] [address] Christina Arnold, GERMAN 03/30/2025 Abstract [facility] [address] [place] [address] Mark Anthony Carvajal DO 03/29/2025 Telephone [facility] [address] [place] [address] Christina rAnold, GERMAN 03/12/2025 Refill [facility] [address] [place] [address] Christina Arnold, GERMAN Type 2 diabetes mellitus with diabetic polyneuropathy (HCC) 02/08/2025 Refill [facility] [address] [place] [address] Riya Salinas MA Type 2 diabetes mellitus with diabetic polyneuropathy (HCC) from Last 3 Months Immunizations Immunization Administration Dates Next Due Influenza, injectable, quadrivalent 04/08/2017,1 Influenza, injectable, quadrivalent, preservativ e free 04/08/2017,04/07/2016 Influenza, seasonal, injectable 03/07/2016 Novel [id number], preservative-free 06/20 Tdap 07/30/2018 Family History Medical History Relation Name Comments No Known Problems Brother No Known Problems Daughter Alcohol abuse Father Colon cancer Father's Brother Crohn's disease Mother Diabetes Mother Endometriosis Mother Heart disease Mother Hyperlipidemia Mother Hypertension Mother Other Mother Wagners disease No Known Problems Sister No Known Problems Son Relation Name Status Comments Brother 3 brothers Daughter 1 daughter Father Alive Father's Brother Mother Alive Sister 1 sister Son 1 son Social History Tobacco Use Types Packs/Day Years Used Date Smoking Tobacco: Every Day Cigarettes Smokeless Tobacco: Never Tobacco Cessation:Ready to Q uit: No; Counseling Given: Yes Comments:6-10 cigs a day. Alcohol Use Standard [...] on file Sexual Orientation Not on file Last Filed Vital Signs Vital Sign Reading Time Taken Comments Blood Pressure 118/58 03/31/2025 9:02 AM EDT Pulse 100 03/31/2025 9:02 AM EDT Temperature 36.6 C (97.8 F) 03/31/2025 9:02 AM EDT Respiratory Rate - - Oxygen Saturation 98% 03/31/2025 9:02 AM EDT Inhaled Oxygen Concentration - - Weight 100 kg (221 lb) 03/31/2025 9:02 AM EDT Height 163.8 cm (5' 4.5 ) 03/31/2025 9:02 AM EDT Body Mass Index 37.35 03/31/2025 9:02 AM EDT Plan of Treatment Upcoming Encounters Date Type Department Care Team (Late st Contact Info) Description 04/30/2025 12:45 PM EDT Ancillary Procedure [facility] [place] [facility] [address] [place] [address] 04/30/2025 1:45 PM EDT Ancillary Procedure [facility] [place] [facility] [address] [place] [place] [address] Health Maintenance Due Date Last Done Comments HPV/Cotest 03/18/2024 03/18/2019 Diabetes: Urine Protein Screening 06/17/2024 023, 09/12/2022 Influenza Vaccine (#1) 2025 3, 04/08/2017, 04/08/2017, Additional history exists Diabetes: Hemoglobin A1C 04/15/2025 025, 09/25/2023, 06/17/2023, Additional history exists Cervical Cancer Screening 12/11/2025 Pap Smear 12/11/2025 12/11/2022, 03/18/2019 Diabetes: Retinopathy Screening 09/08/2026 Procedures Procedure Name Priority Date/Time Associated Diagnosis Comments HEMOGLOBIN A1C Routine 01/13/2025 11:49 AM EDT DIABETIC RETINOPATHY SCREENING - OU - BOTH EYES Routine 09/08/2024 10:07 AM EST MICROALBUMIN / CREATININE URINE RATIO Routine 06/17/2023 11:50 AM EST PAP SMEAR Routine 12/11/2022 12:00 AM EDT THINPREP TIS PAP REFLEX HPV MRNA E6/E7 ([id number]) Routine 03/18/2019 from Last 3 Months or Most Recently Relevant to Health Maintenance Results * (ABNORMAL) Hemoglobin A1c (01/13/2025 11:49 AM EDT) HEMOGLOBIN A1C 11.5 Blood Venous blood specimen / Unknown Madonna Hammonds NP LAB BLOOD ORDERABLES Edited Resu lt - Final * Diabetic Retinopathy Screening - OU - Both Eyes (09/08/2024 10:07 AM EST) Anatomical Region Laterality Modality Head Other Noms Provider Unallocated MD OPHTH PHOTOGRAPHY F inal Result * Microalbumin / creatinine urine ratio (06/17/2023 11:50 AM EST) MICROALBUMIN, URINE 0.7 URINE CREAT 64 Urine Urine specimen obtained by clean catch procedure / Unknown us Unknown Practice A LAB URINE ORDERABLES Edited R esult - Final * Pap Smear (12/11/2022 12:00 AM EDT) Swab Cervical swab / Unknown Historical Provider MD LAB CYTOLOGY ORDERABLES F inal Result [facility] * THINPREP TIS PAP REFLEX HPV MRNA E6/E7 ([id number]) (03/18/2019) CLINICAL INFORMATION: None given [facility] LMP: None given [facility] PREV. PAP: None given [facility] PREV. BX: None given [facility] SOURCE: None given [facility] STATEMENT OF ADEQUACY: SEE COMMENT [facility] Comment: Satisfactory for evaluation. Endocervical/transformation zone component present. INTERPRETATION /RESULT: Negative for intraepithelial lesion or malignancy. [facility] COMMENT: This Pap test has been evaluated with computer assisted technology. [facility] CYTOTECHNOLOGI ST: SEE COMMENT [facility] Comment: LLT, CT(ASCP) CT screening location: [place] [address]. COMMENT SEE COMMENT [facility] Comment: EXPLANATORY NOTE: The Pap is a screening test for cervical cancer. It is not a diagnostic test and is subject to false negative and false positive results. It is most reliable when a satisfactory sample, regularly obtained, is submitted with relevant clinical findings and history, and when the Pap result is evaluated along with historic and current clinical information. 03/18/2019 Luna Underwood MD [facility] Final Result Performing Organization Address [facility] Co de Phone Number [facility] from Last 3 Months or Most Recently Relevant to Health Maintenance Insurance [facility] Care Teams Enameler Relationship Specialty Start Date End Date Mark Anthony Carvajal DO [address] [facility] [address] [place] [address] PCP - General Family Medicine 11/22/22
--- OUTSIDE RECORDS SUMMARY | 2025-04-21 02:26 | XMS_ITS | Encounter Summary ---
Author Organization [facility] Address [address] [facility] [place] [address] Care Team Providers Care Engineer Byproduct Name Role Phone Mark Anthony Carvajal DO Primary Care Provider [phone] Encounter Details Date Type Department Care Team (Late Contact Info) Description 09/25/2023 Abstract [facility] [address] [place] [address] Mark Anthony Carvajal DO [address] [place] [address] Social History Tobacco Use Types Packs/Day Years [...] [facility] [address] [place] [address] 04/30/2025 1:45 PM EDT Ancillary Procedure [facility] [place] [facility] [address] [place] [address] documented as of this encounter Visit Diagnoses Not on filedocumented in this encounter Care Teams Engineer Byproduct Relationship Specialty Start Date End Date Mark Anthony Carvajal DO [address] [place] [address] PCP - General Family Medicine 11/22/22 documented as of this encounter
--- OUTSIDE RECORDS SUMMARY | 2025-04-21 02:26 | XMS_ITS | Encounter Summary ---
Author Organization [facility] Address [address] [facility] [place] [address] Care Team Providers Care Cook Vegetable Name Role Phone Mark Anthony Carvajal Primary Care Provider [phone] Encounter Details Date Type Department Care Team (Late Contact Info) Description 09/25/2023 Orders Only [facility] [place] [facility] [address] [facility] [address] [place] [address] Janae Kebede MA Social History Tobacco Use Types Packs/Day Years [...] Procedure [facility] [place] [facility] [address] [place] [place] [place] [address] 04/30/2025 1:45 PM EDT Ancillary Procedure [facility] [place] [facility] [address] [place] [place] [place] [address] documented as of this encounter Procedures Procedure Name Priority Date/Time Associated Diagnosis Comments HEMOGLOBIN A1C Routine 09/25/2023 4:16 PM EDT documented in this encounter Results * (ABNORMAL) Hemoglobin A1c (09/25/2023 4:16 PM EDT) HEMOGLOBIN A1C 7.7 Blood Venous blood specimen / Unknown us Madonna Hammonds SCRUB NURSE LAB BLOOD ORDERABLES Edited Resu lt - Final documented in this encounter Visit Diagnoses Not on filedocumented in this encounter Care Teams Cook Vegetable Relationship Specialty Start Date End Date Mark Anthony Carvajal DO [address] [place] [address] PCP - General Family Medicine 11/22/22 documented as of this encounter
--- OUTSIDE RECORDS SUMMARY | 2025-04-21 02:26 | XMS_ITS | Encounter Summary ---
Author Organization [facility] Address [address] [place] [address] Phone Care Team Providers Care Information Technology Professor Name Role Phone Christina Arnold Primary Care Provider + Encounter Details Date Type Department Care Team (Late st Contact Info) Description 05/25/2019 Orders Only [facility] [address] [place] [address] Conversion, Onbase Social History Tobacco Use Types [...] r Schedule OUTSIDE LAB SCAN Lab Ordered: 05/25/2019 documented as of this encounter Visit Diagnoses Not on filedocumented in this encounter Care Teams Information Technology Professor Relationship Specialty Start Date End Date Christina Arnold APRN-CNP [address] [facility] 230 [place] [address] PCP - General 04/10/17 documented as of this encounter
--- OUTSIDE RECORDS SUMMARY | 2025-04-21 02:26 | XMS_ITS | Encounter Summary ---
Author Organization [facility] Address [address] [facility] [place] [address] Care Team Providers Care Internal Specialist Name Role Phone Mark Anthony Carvajal DO Primary Care Provider [phone] Encounter Details Date Type Department Care Team ([facility] st Contact Info) Description 03/30/2025 Abstract [facility] [address] [facility] [address] [place] [address] Mark Anthony Carvajal DO [address] [facility] [address] [place] [address] Social History Tobacco Use Types Packs/Day Years [...] on file documented as of this encounter Functional Status * Over the past 2 weeks, how often have you been bothered by any of the following problems? Question Answer Date of Assessment Author Little interest or pleasure in doing things Not at all 03/31/2025 9:02 AM EDT Janae Kebede MA Feeling down, depressed, or hopeless Not at all 03/31/2025 9:02 AM EDT Janae Kebede MA Patient Health Questionnaire -2 Score 0 03/31/2025 9:02 AM EDT Janae Kebede MA documented as of this encounter Plan of Treatment Upcoming Encounters Date Type Department Care Team (Late st Contact Info) Description 04/30/2025 12:45 PM EDT Ancillary Procedure [facility] [place] [facility] [address] [place] [address] 04/30/2025 1:45 PM EDT Ancillary Procedure [facility] [place] [facility] [address] [address] documented as of this encounter Visit Diagnoses Not on filedocumented in this encounter Care Teams Internal Specialist Relationship Specialty Start Date End Date Mark Anthony Carvajal DO [address] [place] [address] PCP - General Family Medicine 11/22/22 documented as of this encounter
--- OUTSIDE RECORDS SUMMARY | 2025-04-21 02:26 | XMS_ITS | Encounter Summary ---
Author Organization [facility] Address [address] [place] [address] Phone Care Team Providers Care Transit Bus Operator Name Role Phone Christina Arnold Primary Care Provider + Encounter Details Date Type Department Care Team (Late st Contact Info) Description 12/28/2019 Orders Only [facility] [address] [place] [address] Conversion, Onbase Social History Tobacco Use Types [...] r Schedule OUTSIDE LAB SCAN Lab Ordered: 12/28/2019 documented as of this encounter Visit Diagnoses Not on filedocumented in this encounter Care Teams Transit Bus Operator Relationship Specialty Start Date End Date Christina Arnold APRN-CNP [address] [facility] 230 [place] [address] PCP - General 04/10/17 documented as of this encounter
--- OUTSIDE RECORDS SUMMARY | 2025-04-21 02:26 | XMS_ITS | Encounter Summary ---
Author Organization [facility] Address [address] [place] [address] Care Team Providers Care Bingo Caller Name Role Phone Mark Anthony Carvajal Primary Care Provider [phone] Encounter Details Date Type Department Care Team (Late Contact Info) Description 01/06/2024 Orders Only [facility] [place] [facility] [address] [facility] [address] [place] [address] Rip Ramos PA [address] [facility] [address] [place] [address] Social History Tobacco Use Types Packs/Day Years [...] [facility] [address] [place] [address] 04/30/2025 1:45 PM EDT Ancillary Procedure [facility] [place] [facility] [address] [place] [address] documented as of this encounter Visit Diagnoses Not on filedocumented in this encounter Care Teams Bingo Caller Relationship Specialty Start Date End Date Mark Anthony Carvajal DO [address] [place] [address] PCP - General Family Medicine 11/22/22 documented as of this encounter
--- OUTSIDE RECORDS SUMMARY | 2025-04-21 02:27 | XMS_ITS | Encounter Summary ---
Author Organization [facility] Address [address] [place] [address] Phone Care Team Providers Care Social Media Editor Name Role Phone Christina Arnold Primary Care Provider + Encounter Details Date Type Department Care Team (Late st Contact Info) Description 03/20/2019 Orders Only [facility] [address] [place] [address] Conversion, Onbase Social History Tobacco Use Types [...] r Schedule OUTSIDE LAB SCAN Lab Ordered: 03/20/2019 documented as of this encounter Visit Diagnoses Not on filedocumented in this encounter Care Teams Social Media Editor Relationship Specialty Start Date End Date Christina Arnold APRN-CNP [address] [facility] 230 [place] [address] PCP - General 04/10/17 documented as of this encounter
--- OUTSIDE RECORDS SUMMARY | 2025-04-21 02:27 | XMS_ITS | Encounter Summary ---
Author Organization [facility] Address [address] [facility] [place] [address] Care Team Providers Care Rubber Goods Finisher Name Role Phone Mark Anthony Carvajal Primary Care Provider [phone] Encounter Details Date Type Department Care Team ([facility] st Contact Info) Description 12/10/2022 Abstract [facility] [address] [address] [place] [phone] Brittaney Morales MA [address] [place] [address] Social History Tobacco Use Types Packs/Day Years [...] Date Recorded Patient Health Questionnaire-2 Score 0 12/11/2022 Comments Unknown Sex and Gender Information Value [...] pleasure in doing things Not at all 12/11/2022 2:03 PM EDT Brittaney Morales MA Feeling down, depressed, or hopeless Not at all 12/11/2022 2:03 PM EDT Brittaney Morales MA Patient Health Questionnaire -2 Score 0 12/11/2022 2:03 PM EDT Brittaney Morales MA documented as of this encounter Plan of Treatment Upcoming Encounters Date Type Department Care Team (Late st Contact Info) Description 04/30/2025 12:45 PM EDT Ancillary Procedure [facility] [place] [address] [place] [address] 04/30/2025 1:45 PM EDT Ancillary Procedure [facility] [place] [facility] [address] [place] [address] documented as of this encounter Procedures Procedure Name Priority Date/Time Associated Diagnosis Comments PAP SMEAR Routine 03/18/2019 12:00 AM EDT documented in this encounter Results * Pap Smear (03/18/2019 12:00 AM EDT) Swab Cervical swab / Unknown us Historical Provider LAB CYTOLOGY ORDERABLES F inal Result [facility] documented in this encounter Visit Diagnoses Not on filedocumented in this encounter Care Teams Rubber Goods Finisher Relationship Specialty Start Date End Date Mark Anthony Carvajal DO [address] [place] [address] PCP - General Family Medicine 11/22/22 documented as of this encounter
--- OUTSIDE RECORDS SUMMARY | 2025-04-21 02:27 | XMS_ITS | Encounter Summary ---
Author Organization [facility] Address [address] [facility] [place] [facility] [place] [address] Care Team Providers Care Coal Briquette Machine Operator Name Role Phone MasterMark Anthony venegas Primary Care Provider [phone] Encounter Details Date Type Department Care Team ([facility] st Contact Info) Description 03/30/2025 Abstract [facility] [address] [facility] [address] [place] [address] Christina Arnold, GERMAN [address] [facility] [address] [place] [address] Social History Tobacco Use Types Packs/Day Years [...] [facility] [place] [facility] [address] [facility] [place] [address] 04/30/2025 1:45 PM EDT Ancillary Procedure [facility] [place] [facility] [address] [place] [address] documented as of this encounter Visit Diagnoses Not on filedocumented in this encounter Care Teams Coal Briquette Machine Operator Relationship Specialty Start Date End Date Mark Anthony Carvajal DO [address] [place] [address] PCP - General Family Medicine 11/22/22 documented as of this encounter
--- OUTSIDE RECORDS SUMMARY | 2025-04-21 02:27 | XMS_ITS | Encounter Summary ---
Author Organization [facility] Address [address] [place] [address] Phone Care Team Providers Care Pharmaceutical Sales Name Role Phone Christina Arnold Primary Care Provider + Encounter Details Date Type Department Care Team (Late st Contact Info) Description 12/02/2024 Scanned Document [facility] [address] [place] [phone] Scanning, Generic Provider Social History Tobacco Use Types Packs/Day Years Used Date Smoking Tobacco: Every Day Cigarettes Smokeless Tobacco: Current Alcohol Use Standard Drinks/Week Comments Never 0 [...] on file documented as of this encounter Visit Diagnoses Not on filedocumented in this encounter Care Teams Pharmaceutical Sales Relationship Specialty Start Date End Date Christina Arnold APRN-CNP [address] [place] [address] PCP - General 04/10/17 documented as of this encounter
--- OUTSIDE RECORDS SUMMARY | 2025-04-21 02:27 | XMS_ITS | Encounter Summary ---
Author Organization [facility] Address [address] [place] [place] [address] Care Team Providers Care Solution Manager Name Role Phone Masterrubi Mark Anthony Stephens Primary Care Provider [phone] Encounter Details Date Type Department Care Team (Late Contact Info) Description 01/12/2025 Orders Only [facility] [place] [facility] [address] [phone] Unallocated, [facility], [address] [place] [address] Social History Tobacco Use Types Packs/Day Years [...] Date Recorded Patient Health Questionnaire-2 Score 0 01/11/2025 Comments Unknown Sex and Gender Information Value Date Recorded Sex Assigned at Not on file Legal Sex Female 7:01 PM EDT Gender Identity Not on file Sexual Orientation Not on file documented as of this encounter Plan of Treatment Upcoming Encounters Date Type Department Care Team (Late Contact Info) Description 04/30/2025 12:45 PM EDT Ancillary Procedure [facility] [address] [place] [phone] 04/30/2025 1:45 PM EDT Ancillary Procedure [facility] [place] [facility] [address] [place] [phone] documented as of this encounter Procedures Procedure Name Priority Date/Time Associated Diagnosis Comments DIABETIC RETINOPATHY SCREENING - OU - BOTH EYES Routine 09/08/2024 10:07 AM EST documented in this encounter Results * Diabetic Retinopathy Screening - OU - Both Eyes (09/08/2024 10:07 AM EST) Anatomical Region Laterality Modality Head Other us [facility] Provider Unallocated MD OPHTH PHOTOGRAPHY F inal Result documented in this encounter Visit Diagnoses Not on filedocumented in this encounter Care Teams Solution Manager Relationship Specialty Start Date End Date Mark Anthony Carvajal DO [address] [place] [address] PCP - General Family Medicine 11/22/22 documented as of this encounter
--- OUTSIDE RECORDS SUMMARY | 2025-04-21 02:27 | XMS_ITS | Clinical Summary ---
Author Organization [facility] Address [address] [place] [address] Phone Care Team Providers Care Counter Tender Name Role Phone Christina Arnold GENERAL INTERNIST-HIGH SCHOOL TEACHER Primary Care Provider + Allergies Active Allergy Reactions Criticality Noted Date Comments Surfactants Nausea/vomiting Medium 04/10/2023 Medications empagliflozin (Jardiance) 25 mg Take 1 tablet (25 mg) by mouth once daily. Active pregabalin (Lyrica) 150 mg capsule Take 1 capsule (150 mg) by mouth 3 times a day. Active blood-glucose sensor (DEXCOM G6 SENSOR MISC) Active nitroglycerin (Nitrostat) 0.[address] 1 tablet (0.4 mg) under the tongue every 5 minutes if needed for chest pain. Active ergocalciferol (Vitamin D-2) 1.25 MG (46288 UT) capsule Take 1 capsule (1,250 mcg) by mouth 1 (one) time per week. Active Ozempic 2 mg/dose (8 mg/3 mL) pen injector 1 (one) time per week. 12/06/19 24 Active insulin lispro (HumaLOG) 100 unit/mL injection USE SUBCUTANEOUSLY DIRECTED. MAX DAILY DOSE OF 80 UNITS PER INSULIN PUMP 12/07/19 24 Active isosorbide mononitrate ER (Imdur) 30 mg 24 hr tabletIndications: Acute chest pain,Coronary artery disease with angina pectoris, unspecified vessel or lesion type, unspecified whether [place] or transplanted heart TAKE 1 TABLET (30 MG) BY MOUTH ONCE DAILY. DO NOT CRUSH OR CHEW. 90 tablet 3 04/06/20 24 Active clopidogrel (Plavix) 75 mg tabletIndications: Coronary artery disease involving [place] coronary artery of [place] heart without angina pectoris TAKE 1 TABLET BY MOUTH ONCE DAILY. 90 tablet 3 04/27/20 24 Active lisinopril 5 mg tabletIndications: Essential hypertension TAKE 1 TABLET BY MOUTH EVERY DAY 90 tablet 3 04/27/20 24 Active fenofibrate (Tricor) 145 mg tabletIndications: Coronary artery disease involving [place] coronary artery of [place] heart without angina pectoris,Mixed hyperlipidemia Take 1 tablet (145 mg) by mouth once daily. 90 tablet 3 07/30/19 25 026 Active metoprolol tartrate (Lopressor) 25 mg tabletIndications: Essential hypertension Take 1 tablet (25 mg) by mouth 2 times a day. 180 tablet 3 10/07/19 25 026 Active atorvastatin (Lipitor) 40 mg tabletIndications: Hyperlipidemia, unspecified TAKE 1 TABLET (40 MG) BY MOUTH ONCE DAILY IN THE MORNING. TAKE BEFORE MEALS. 90 tablet 1 03/04/20 25 Active Active Problems Problem Noted Date Diagnosed Date BMI 37.0-37.9, adult 10/15/2023 Essential hypertension 04/10/2023 Assessment & Plan (04/10/2023 9:16 AM EDT): optimal in office Acute chest pain 03/02/2023 Acute myocardial infarction of inferior wall Anemia 03/02/2023 CAD (coronary artery disease) 03/02/2023 Assessment & Plan (04/10/2023 9:16 AM EDT): Mar 2019 NSTEMI pRCA PCI/Katia 4/18mm mLAD SAP DEVELOPER PCI/Katia 2.25/33mm Feb 2020 MPI no ischemia LVEF 60% Current daily activity 4 METS without recurrent symptoms Current every day smoker 03/02/2023 Assessment & Plan (04/10/2023 8:47 AM EDT): 1 pack per day 11 pack year history Continued every day tobacco use. Have reviewed the negative cardiovascular impact of nicotine. Continues to decline pharmacological assistance. 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 Hyperlipemia 03/02/2023 Assessment & Plan (04/10/2023 9:16 AM EDT): Moderate intensity statin Due for labs Status post angioplasty 03/02/2023 Encounters Date Type Department Care Team Description 03/04/[address] [phone] Osmar Javed, DO Hyperlipidemia, unspecified 02/08/[address] [address] Rachell Broussard, TOOL HONING MACHINE SET UP OPERATOR Med Refill from Last 3 Months Immunizations Immunization Administration Dates Next Due Influenza, injectable, quadrivalent 04/08/2017,1 Influenza, seasonal, injectable 03/07/2016,06/20 Novel [id number], preservative-free 06/20 Tdap vaccine, age 7 year and older (BOOSTRIX, AD ACEL) 07/30/2018 Family History Medical History Relation Name Comments cardiac disorder Mother cardiac pacemaker Mother Heart problem Sister Relation Name Status Comments Mother Sister Social History Tobacco Use Types Packs/Day Years Used Date Smoking Tobacco: Every Day Cigarettes Smokeless Tobacco: Current Tobacco Cessation:Ready to Q uit: No; Counseling Given: Yes Alcohol Use Standard Drinks/Week Comments Never 0 [...] Sign Reading Time Taken Comments Blood Pressure 106/70 09/15/2024 10:33 AM EDT Pulse 70 09/15/2024 10:33 AM EDT Temperature - - Respiratory Rate - - Oxygen Saturation - - Inhaled Oxygen Concentration - - Weight 103 kg (227 lb) 10/15/2023 9:03 AM EDT Height 165.1 cm (5' 5 ) 10/15/2023 9:03 AM EDT Body Mass Index 37.77 10/15/2023 9:03 AM EDT Plan of Treatment Health Maintenance Due Date Last Done Comments HIV Screening 1987 Lipid Panel 1987 Diabetes: Retinopathy Screening 11/29/1997 Hepatitis C Screening 11/29/2005 Hepatitis B Vaccines (1 of 3 - 19+ 3-dose series) 11/29/2006 Pneumococcal Vaccine: Pediatrics and At-Risk Adult Patients (1 of 2 - PCV) 11/29/2006 HPV/Cotest 11/29/2008 MMR Vaccines (1 of 1 - Standard series) 07/18/2009 HPV Vaccines (1 - 3-dose standard series) 11/29/2014 Diabetes: Hemoglobin A1C 02/20/2023 11/20/2022 Diabetes: Urine Protein Screening 06/17/2024 06/17/2023 COVID-19 Vaccine (2 - season) 2025 08/26/2023 Influenza Vaccine (#1) 2025 , 04/08/2017, 04/07/2016, Additional history exists Yearly Adult Physical 03/19/2025 03/18/2024, 023 Cervical Cancer Screening 12/11/2025 Pap Smear 12/11/2025 12/11/2022 DTaP/Tdap/Td Vaccines (2 - Td or Tdap) 07/30/2028 07/30/2018 Zoster Vaccines (1 of 2) 11/29/2037 HIB Vaccines Aged Out No longer eligi ble based on patient's age to complete this topic Hepatitis A Vaccines Aged Out No long er eligible based on patient's age to complete this topic IPV Vaccines Aged Out No longer eligi ble based on patient's age to complete this topic Meningococcal Vaccine Aged Out No gabriela jaiden eligible based on patient's age to complete this topic Rotavirus Vaccines Aged Out No longer eligible based on patient's age to complete this topic Procedures Procedure Name Priority Date/Time Associated Diagnosis Comments HEMOGLOBIN A1C Routine 11/20/2022 4:12 PM EDT from Last 3 Months or Most Recently Relevant to Health Maintenance Results * (ABNORMAL) Hemoglobin A1C (11/20/2022 4:12 PM EDT) Hemoglobin A1C 8.9(A) % [facility] Comment: Diagnosis of Diabetes-Adults Non-Diabetic: < or = 5.6% Increased risk for developing diabetes: 5.7-6.4% Diagnostic of diabetes: > or = 6.5% . Monitoring of Diabetes Age (y) Therapeutic Goal (%) Adults: >18 <7.0 Pediatrics: 13-18 <7.5 7-12 <8.0 0- 6 7.5-8.5 [place] [employer]. Diabetes Care 33(S1), Jul 2009. Estimated Average Glucose 209 MG/DL [facility] 11/20/2022 4:12 PM EDT 11/20/2022 11:05 PM EDT us Guilherme Mejía MD LAB BLOOD ORDERABLES Final R esult Performing Organization Address City/State/[facility] Co de Phone Number [facility] [id number] [place] [address] from Last 3 Months or Most Recently Relevant to Health Maintenance [facility] Care Teams Counter Tender Relationship Specialty Start Date End Date Christina Arnold, SRIRAM-ILIANA [address] [facility] [address] [place] [address] PCP - General 04/10/17
--- OUTSIDE RECORDS SUMMARY | 2025-04-21 02:27 | XMS_ITS | Encounter Summary ---
Author Organization [facility] Address [address] [facility] [place] [address] Care Team Providers Care Warp Spooler Name Role Phone Mark Anthony Carvajal Primary Care Provider [phone] Encounter Details Date Type Department Care Team ([facility] Contact Info) Description 12/11/2022 Abstract [facility] [address] [facility] [address] [place] [phone] Luna Underwood MD [address] [facility] [address] [place] [address] Social History Tobacco Use Types Packs/Day Years Used Date Smoking Tobacco: Every Day Cigarettes Smokeless Tobacco: Never Tobacco Cessation:Ready to Q uit: No Comments:6-10 cigs a day. Alcohol Use Standard [...] [facility] [place] [facility] [address] [place] [address] 04/30/2025 1:45 PM EDT Ancillary Procedure [facility] [place] [facility] [address] [place] [address] documented as of this encounter Visit Diagnoses Not on filedocumented in this encounter Care Teams Warp Spooler Relationship Specialty Start Date End Date Mark Anthony Carvajal DO [address] [place] [address] PCP - General Family Medicine 11/22/22 documented as of this encounter
--- OUTSIDE RECORDS SUMMARY | 2025-04-21 02:27 | XMS_ITS | Encounter Summary ---
Author Organization [facility] Address [address] [place] [address] Care Team Providers Care Java Portal Developer Name Role Phone DannaChristina epperson Susan INSPECTOR MATERIALS AND PROCESSES Unavailable Mark Anthony Carvajal DO Primary Care Provider [phone] Encounter Details Date Type Department Care Team (Late st Contact Info) Description 11/26/2022 [facility] [address] [facility] [address] [place] [phone] Jamil Hammonds, PT, DPT [address] [facility] [address] [place] [address] Social History Tobacco Use Types Packs/Day Years [...] Date Recorded Patient Health Questionnaire-2 Score 0 11/29/2022 Comments Unknown Sex and Gender Information Value Date Recorded Sex Assigned at Not on file Legal Sex Female 7:01 PM EDT Gender Identity Not on file Sexual Orientation Not on file documented as of this encounter Functional Status * AUDIT-C Score Answer Date of Assessment Author 0 11/29/2022 3:56 PM EDT Chetna Morales MA * Question Answer Date of Assessment Author Q1: How often do you have a drink containing alcohol? Never 11/29/2022 3:56 PM EDT Chetna Morales MA Q2: How many drinks containing alcohol do you have on a typical day when you are drinking? Patient does not drink 11/29/2022 3:56 PM EDT Chetna Morales MA Q3: How often do you have six or more drinks on one occasion? Never 11/29/2022 3:56 PM EDT Chetna Morlaes MA * Over the past 2 weeks, how often have you been bothered by any of the following problems? Question Answer Date of Assessment Author Little interest or pleasure in doing things Not at all 11/29/2022 3:57 PM EDT Chetna Morales MA Feeling down, depressed, or hopeless Not at all 11/29/2022 3:57 PM EDT Chetna Morales MA Patient Health Questionnaire -2 Score 0 11/29/2022 3:57 PM EDT Chetna Morales MA documented as of this encounter Plan of Treatment Upcoming Encounters Date Type Department Care Team (Late st Contact Info) Description 04/30/2025 12:45 PM EDT Ancillary Procedure [facility] [place] [facility] [address] [place] [address] 04/30/2025 1:45 PM EDT Ancillary Procedure [facility] [place] [facility] [address] [place] [address] documented as of this encounter Visit Diagnoses Not on filedocumented in this encounter Care Teams Java Portal Developer Relationship Specialty Start Date End Date Christina Arnold NP [address] [place] [address] PCP - [place] [employer] 05/08/22 Mark Anthony Carvajal DO [address] [place] [address] PCP - General Family Medicine 11/22/22 documented as of this encounter
--- OUTSIDE RECORDS SUMMARY | 2025-04-21 02:27 | XMS_ITS | Encounter Summary ---
Author Organization [facility] Address [address] [place] [address] Care Team Providers Care Engineering Associate Name Role Phone DannaChristina epperson Susan BARRIENTOS Primary Care Provider [phone] Mark Anthony Carvajal Gerry DO Unavailable [phone] Source Comments In the event this information is protected by the Federal Confidentiality of Alcohol and Drug AbusePatient Records regulations: The Federal rules restrict any use of the information to criminally investigate or prosecute any alcohol or drug abuse patient.[facility] Encounter Details Date Type Department Care Team (Late st Contact Info) Description 12/23/2023 Patient Msg [facility] [address] [place] [id number] Provider, [facility] Financial Clearance Social History Tobacco Use Types Packs/Day Years Used Date Smoking Tobacco: Every Day Cigarettes Started: 04/17/2004 Smokeless Tobacco: Never Comments:11-20 cigarettes/ d ay Alcohol Use Standard Drinks/Week Comments No 0 (1 standard drink = 0.6 oz pur e alcohol) PHQ-2 Answer Date Recorded PHQ-2 score 0 04/25/2023 Area Deprivation Index Answer Date Marito rded National Score (1-100), lower number is lower ri sk 95 11/12/2022 State Score (1-10), lower number is lower risk 9 11/12/2022 Data from: https://www.neighborhoodatlas.[facility]/. Last address used for calculation [address] 11/12/2022 Comments No Sex and Gender Information Value Date Recorded Sex Assigned at Not on file Legal Sex Female 4:49 PM EST Gender Identity Not on file Sexual Orientation Not on file documented as of this encounter Plan of Treatment Not on file documented as of this encounter Visit Diagnoses Not on filedocumented in this encounter Care Teams Engineering Associate Relationship Specialty Start Date End Date Christina Arnold CNP [address] [place] [address] PCP - General Family Medicine 04/16/17 Mark Anthony Carvajal DO [address] [place] [address] Family Medicine 04/14/18 documented as of this encounter
--- OUTSIDE RECORDS SUMMARY | 2025-04-21 02:27 | XMS_ITS | Encounter Summary ---
Author Organization [facility] Address [address] [facility] [place] [address] Care Team Providers Care Flour Mixer Name Role Phone Mark Anthony Carvajal DO Primary Care Provider [phone] Encounter Details Date Type Department Care Team (Late Contact Info) Description 08/31/2024 Abstract [facility] [address] [place] [address] Mark Anthony Carvajal DO [address] [place] [address] Social History Tobacco Use Types Packs/Day Years [...] Date Recorded Patient Health Questionnaire-2 Score 0 03/18/2024 Comments Unknown Sex and Gender Information Value [...] [facility] [address] [place] [address] 04/30/2025 1:45 PM EDT Ancillary Procedure [facility] [place] [facility] [address] [place] [address] documented as of this encounter Visit Diagnoses Not on filedocumented in this encounter Care Teams Flour Mixer Relationship Specialty Start Date End Date Mark Anthony Carvajal DO [address] [place] [address] PCP - General Family Medicine 11/22/22 documented as of this encounter
--- OUTSIDE RECORDS SUMMARY | 2025-04-21 02:27 | XMS_ITS | Encounter Summary ---
Author Organization [facility] Address [address] [facility] [place] [address] Care Team Providers Care Chief Yeoman Name Role Phone Mark Anthony Carvajal Primary Care Provider [phone] Encounter Details Date Type Department Care Team (Late Contact Info) Description 01/13/2025 [facility] [address] [facility] [address] [place] [address] Madonna Hammonds NP [address] [facility] [place] [address] Social History Tobacco Use Types Packs/Day Years [...] [facility] [place] [facility] [address] [place] [address] 04/30/2025 1:45 PM EDT Ancillary Procedure [facility] [place] [facility] [address] [place] [address] documented as of this encounter Procedures Procedure Name Priority Date/Time Associated Diagnosis Comments HEMOGLOBIN A1C Routine 01/13/2025 11:49 AM EDT documented in this encounter Results * (ABNORMAL) Hemoglobin A1c (01/13/2025 11:49 AM EDT) HEMOGLOBIN A1C 11.5 Blood Venous blood specimen / Unknown us Madonna Hammonds [facility] LAB BLOOD ORDERABLES Edited Resu lt - Final documented in this encounter Visit Diagnoses Not on filedocumented in this encounter Care Teams Chief Yeoman Relationship Specialty Start Date End Date Mark Anthony Carvajal DO [address] [place] [address] PCP - General Family Medicine 11/22/22 documented as of this encounter
--- OUTSIDE RECORDS SUMMARY | 2025-04-21 02:27 | XMS_ITS | Encounter Summary ---
Author Organization [facility] Address [address] [place] [address] Phone Care Team Providers Care Polysomnographic Tech Name Role Phone Christina Arnold Primary Care Provider + Encounter Details Date Type Department Care Team (Late st Contact Info) Description 07/10/2017 Orders Only [facility] [address] [place] [address] Conversion, Onbase Social History Tobacco Use Types [...] r Schedule OUTSIDE LAB SCAN Lab Ordered: 07/10/2017 documented as of this encounter Visit Diagnoses Not on filedocumented in this encounter Care Teams Polysomnographic Tech Relationship Specialty Start Date End Date Christina Arnold APRN-CNP [address] [facility] [address] [place] [address] PCP - General 04/10/17 documented as of this encounter
--- OUTSIDE RECORDS SUMMARY | 2025-04-21 02:27 | XMS_ITS | Encounter Summary ---
Author Organization [facility] Address [address] [facility] [place] [address] Care Team Providers Care Laundry Manager Name Role Phone Mark Anthony Carvajal Primary Care Provider [phone] Encounter Details Date Type Department Care Team (Late Contact Info) Description 01/13/2025 Abstract [facility] [address] [place] [phone] Christina Arnold, GERMAN [address] [place] [address] Social History Tobacco Use Types Packs/Day Years [...] [facility] [address] [place] [address] 04/30/2025 1:45 PM EDT Ancillary Procedure [facility] [place] [facility] [address] [place] [address] documented as of this encounter Visit Diagnoses Not on filedocumented in this encounter Care Teams Laundry Manager Relationship Specialty Start Date End Date Mark Anthony Carvajal DO [address] [place] [address] PCP - General Family Medicine 11/22/22 documented as of this encounter
--- OUTSIDE RECORDS SUMMARY | 2025-04-21 02:27 | XMS_ITS | Clinical Summary ---
Author Organization [facility] Address [address] [place] [id number] Care Team Providers Care [employer] Cafeter[employer] Cook Name Role Phone DannaChristina epperson Susan BARRIENTOS Primary Care Provider Mark Anthony Carvajal DO Unavailable [phone] Allergies Active Allergy Reactions Criticality Noted Date Comments Liraglutide Other: See Comments 10/25/2021 Metformin Other: See Comments 10/25/2021 Sulfamethoxazole-Trimet hoprim Other: See Comments 09/01/2019 Nausea and vomiting Trimethoprim GI Upset 12/28/2019 Medications metoprolol tartrate, short acting, (LOPRESSOR) 25 mg tablet Take 12.5 mg by mouth. 03/24/20 Active atorvastatin (LIPITOR) 40 mg tablet Take 40 mg by mouth. 03/24/20 Active nitroglycerin (NITRODERM) 0.3 mg/hr pt24 Dissolve 0.4 mg under the tongue. 03/24/20 Active clopidogrel (PLAVIX) 75 mg tablet Take 75 mg by mouth once daily. Active insulin lispro (HUMALOG KWIKPEN) 100 unit/mL Inject subcutaneously three times daily before meals. Active TRULICITY 1.5 mg/0.5 mL pnij USE DIRECTED ONCE WEEKLY 08/10/19 Active JARDIANCE 25 mg tablet Take 25 mg by mouth once daily. 08/10/19 Active lisinopril (ZESTRIL, PRINIVIL) 5 mg tablet Take 5 mg by mouth once daily. 07/30/19 Active pregabalin (LYRICA) 150 mg capsule Take 150 mg by mouth three times daily. 02/01/20 22 Active fenofibrate nanocrystallized (TRICOR) 145 mg tablet Take 145 mg by mouth once daily. 11/01/19 23 Active isosorbide mononitrate ER (IMDUR) 30 mg 24 hr tablet Take 30 mg by mouth once daily. Active OZEMPIC 2 mg/dose (8 mg/3 mL) pen injector Inject 2 mg subcutaneously. Active Active Problems Problem Noted Date Diagnosed Date Iron deficiency anemia 09/02/2017 Thrombocytosis 04/22/2017 Leukocytosis 04/22/2017 Encounters Date Type Department Care Team Description 03/02/2025 Telephone Hematology/Oncology [address] [address] Keira Blunt, marshmallow runner Orders 02/09/2025 Telephone Cancer Appts [address] [address] Elida Ray APRN.OPERATIONS ADMINISTRATOR No Show from Last 3 Months Immunizations Immunization Administration Dates Next Due influenza (IIV3) vaccine, tr ivalent (AFLURIA, FLULAVAL, FLUVIRIN, FLUZONE) 03/07/2016,06/20/2009 influenza (IIV4) vaccine, ag e 6 mo - 64 yr, quadrivalent (AFLURIA, FLULAVAL, FLUZONE) 04/08/2017,04/07/2016 influenza (IIV4) vaccine, ag e 6 mo - 64 yr, quadrivalent, PF (AFLURIA, FLUARIX, FLULAVAL, FLUZONE) 06/04/2023,04/08/2017,04/07/2016 influenza (IIV4) vaccine, qu adrivalent (AFLURIA, FLULAVAL, FLUZONE) 04/08/2017,04/07/2016 influenza (LAIV) vaccine, na riley, unspecified formulation 04/08/2017 novel influenza ([id number]) vaccine, PF 06/20/2009 tetanus diphtheria pertussis (Tdap) vaccine, age 7+ yr (ADACEL, BOOSTRIX) 07/30/2018 Family History Medical History Relation Comments Alcohol/Drug Father Diabetes Mother Hyperlipidemia Mother Hypertension Mother crohns disease Mother endomertosis Mother heart disease Mother wagners disease Mother Relation Status Comments Father Alive Mother Alive Social History Tobacco Use Types Packs/Day Years Used Date Smoking Tobacco: Every Day Cigarettes Started: 04/17/2004 Smokeless Tobacco: Never Tobacco Cessation:Ready to Q uit: No Comments:11-20 cigarettes/ day Alcohol Use Standard Drinks/Week Comments No 0 (1 standard drink = 0.6 oz pur e alcohol) PHQ-2 Answer Date Recorded PHQ-2 score 0 02/27/2024 Area Deprivation Index Answer Date Marito rded National Score (1-100), lower number is lower ri sk 95 11/12/2022 State Score (1-10), lower number is lower risk 9 11/12/2022 Data from: https://www.neighborhoodatlas.medicine.[facility] Last address used for calculation [address] 11/12/2022 Comments No Sex and Gender Information Value Date Recorded Sex Assigned at Not on file Legal Sex Female 4:49 PM EST Gender Identity Not on file Sexual Orientation Not on file Last Filed Vital Signs Vital Sign Reading Time Taken Comments Blood Pressure 136/84 01/15/2025 8:39 AM EDT Pulse 81 01/15/2025 8:39 AM EDT Temperature 36.6 C (97.9 F) 01/15/2025 8:39 AM EDT Respiratory Rate 16 01/15/2025 8:39 AM EDT Oxygen Saturation 99% 01/15/2025 8:39 AM EDT Inhaled Oxygen Concentration - - Weight 106.2 kg (234 lb 2.1 oz) 01/15/2025 8:39 AM EDT Height 162.6 cm (5' 4.02 ) 01/15/2025 8:39 AM ED T Body Mass Index 40.17 01/15/2025 8:39 AM EDT Plan of Treatment Health Maintenance Due Date Last Done Comments Anxiety Screening 11/29/2005 Depression Screening 11/29/2005 HIV Screening 11/29/2005 Hepatitis C Screening 11/29/2005 Hepatitis B Vaccine (1 of 3 - 19+ 3-dose series) 11/29/2006 Pneumococcal Vaccine (1 of 2 - PCV) 11/29/2006 Cervical Cancer Screening 11/29/2008 HPV Vaccine (1 - 3-dose SCDM series) 11/29/2014 Covid-19 Vaccine ( - 2024-2 6 season) 2025 08/26/2023, 12/12/2020, 11/21/2020 Influenza Vaccine (#1) 2025 3, 04/08/2017, 04/08/2017, Additional history exists DTaP,Tdap,Td Vaccine (2 - Td or Tdap) 07/30/2028 07/30/2018 Insurance [facility] Care Teams School Cafeteria Cook Relationship Specialty Start Date End Date Christina Arnold CNP [address] [address] PCP - General Family Medicine 04/16/17 Mark Anthony Carvajal DO [address] [phone] Family Medicine 04/14/18
--- OUTSIDE RECORDS SUMMARY | 2025-04-21 02:27 | XMS_ITS | Encounter Summary ---
Author Organization [facility] Address [address] [facility] [place] [address] Care Team Providers Care Dispute Resolution Specialist Name Role Phone Mark Anthony Carvajal Primary Care Provider Encounter Details Date Type Department Care Team (Late Contact Info) Description 06/01/2024 Abstract [facility] [address] [place] [id number] Christina Arnold, FIRE SPRINKLER DESIGNER [address] [place] [address] Social History Tobacco Use Types Packs/Day Years [...] [facility] [address] [place] [phone] 04/30/2025 1:45 PM EDT Ancillary Procedure [facility] [place] [facility] [address] [place] [id number] documented as of this encounter Visit Diagnoses Not on filedocumented in this encounter Care Teams Dispute Resolution Specialist Relationship Specialty Start Date End Date Mark Anthony Carvajal DO [address] [place] [address] PCP - General Family Medicine 11/22/22 documented as of this encounter
== END 2025-04-21 03:42 | disposition home or self-care (01) ==
PROVIDERS: Emergency Provider Internal Medicine
DX: S82.042A Displaced comminuted fracture of left patella, initial encounter for closed fracture (principal); W01.0XXA Fall on same level from slipping, tripping and stumbling without subsequent striking against object, initial encounter
CPT/HCPCS: 73562; 99283

== ENCOUNTER 2025-04-23 10:53 | Outpatient (OUT) | payer OTHER, SELFPAY ==
--- NOTE | 2025-04-23 11:00 | XR_ITS ---
The [address] [address] Patient Name: EMI VAUGHN MRN: [id number] date: 1985 Sex: F Assigned Patient Location: [facility] Current Patient Location: [facility] Accession/Order Number: [id number] Exam Date: 04/23/2025 11:46 Report Date: 04/23/2025 11:52 At the request of: JESSIKA HOLT DO Procedure: XR chest 2V Chest 2 views CLINICAL HISTORY: Preop exam COMPARISON: None FINDINGS: Heart normal in size. Lungs are clear. No free air. XR/XR chest 2V IMPRESSION: NO ACUTE CARDIOPULMONARY ABNORMALITY. Impression dictated by: Guilherme Noriega Jr. DElginOElgin 04/23/2025 11:52 AM Dictation Location: [place] [address] Electronically authenticated by: [id number] Y Date: 04/23/2025 11:52
[2025-04-23 11:45] LABS: Hematocrit 28.1 % (36.0-48.0); Hemoglobin 8.2 g/dL (12.0-16.0); Immature Granulocytes Abs Auto 0.03 10^3/uL (0.00-0.03); Immature Granulocytes Pct Auto 0.3 % (0.0-0.5); Lymphocytes Absolute Auto 1.9 10^3/uL (1.2-3.8); Mean Corpuscular HGB Conc 29.2 g/dL (29.9-35.2); Mean Corpuscular Hemoglobin 19.6 pg (26.7-34.0); Mean Corpuscular Volume 67.2 fL (81.0-99.0); Platelet Count 564 10^3/uL (150-450); Red Blood Count 4.18 10^6/uL (4.20-5.40); White Blood Count 10.7 10^3/uL (4.0-11.0)
[2025-04-23 13:14] LABS: Alanine Aminotransferase 24 U/L (14-59); Albumin Globulin Ratio 0.8; Albumin Level 3.1 g/dL (3.4-5.0); Alkaline Phosphatase 89 U/L (46-116); Anion Gap 13.3; Aspartate Amino Transferase 14 U/L (15-37); Blood Urea Nitrogen 8.0 mg/dL (7.0-18.0); Calcium 8.5 mg/dL (8.5-10.1); Carbon Dioxide 22.9 mmol/L (21.0-32.0); Chloride 106 mmol/L (98-107); Estimated GFR (African America >60 (>=60 mL/min/1.73m^2); Estimated GFR (Non-African Ame >60 (>=60 mL/min/1.73m^2); Globulin 3.8 g/dL; Glucose 288 mg/dL (74-106); Potassium 4.2 mmol/L (3.5-5.1); Sodium 138 mmol/L (136-145); Total Protein 6.9 g/dL (6.4-8.2)
[2025-04-23 13:15] LABS: INR 0.99; Partial Thromboplastin Time 26.1 sec (22.3-36.2); Prothrombin Time 10.5 sec (9.0-11.6)
== END 2025-04-23 10:54 | disposition home or self-care (01) ==
LOC: PST 10:55
PROVIDERS: Visit Provider Physician Assistant
DX: Z01.810 Encounter for preprocedural cardiovascular examination (principal); Z01.812 Encounter for preprocedural laboratory examination; S82.092A Other fracture of left patella, initial encounter for closed fracture
CPT/HCPCS: 71046; 80048; 80076; 83036; 85025; 85610; 85730

== ENCOUNTER 2025-04-29 13:06 | Day surgery (SDC) | payer OTHER, SELFPAY ==
--- OUTSIDE RECORDS SUMMARY | 2025-04-22 07:21 | XMS_ITS | Continuity of Care Document ---
Author Organization [facility] Address [address] [place] [address] Phone Care Team Providers Care Registered Dental Hygienist Name Role Phone Christina Arnold NP-C Primary Care Provider Ahsan Mata DO Emergency Provider [phone] Raul Rivas DO Attending Provider [phone] Care Teams Patient Care Team Team Status: Active Member Role Status Dates Christina Arnold DOG BARBER-C Primary Care Provider Active Visit Care Team Team Status: Inactive Member Role Status Dates Christina Arnold DOG BARBER-C Primary Care Provider Active S tart: March 29, 2025 End: March 29, 2025Salma Garcia ProviderActiveStart: March 29, 2025 End: March 29, 2025 Patient Care Team Team Status: Inactive Member Role Status Dates Christina Arnold DOG BARBER-C Primary Care Provider Active S tart: April 22, 2025 End: April 22, 2025Koko Reis ProviderActiveStart: April 22, 2025 End: April 22, 2025 Chief Complaint and Reason for Visit Chief Complaint Admit Date rt side arm/leg numbness, tingling Septe mber 2024 9:14am TB ER [facility] DOI 04/21/25 L PATELLA FX WX April 22, 2025 10:03am Reason for Visit Admit Date Fracture of left patella April 22, 2 025 10:03am Allergies, Adverse Reactions, Alerts Allergen Type Severity Reaction Last Updated Verified Status liraglutide Allergy Unknown egg tasting belches April 22, 2025 10:47am Yes Active metformin Allergy Unknown g/i side effects April 22, 2025 10:47am Yes Active sulfamethoxazole Allergy Unknown Nausea, vomiting Oc tober 2024 10:47am Yes Active trimethoprim Allergy Unknown Nausea, vomiting Octobe r 2024 10:47am Yes Active Social History Smoking Status Status Start Date End Date Date of Observa tion Never smoked tobacco (finding) March 29, 2025 10:49am Observation Status Observation Response Date of Response Legal Sex Female (finding) [facility] Family History Relationship Condition Age at Onset Recorded Date/T shemar mother Diabetes mellitus Unknown Coronary artery diseaseUnknownCrohn's diseaseUnknownWagner syndromeUnknown grandparentDiabetes mellitusUnknowngrandparentDiabetes mellitusUnknownmother Heart diseaseUnknownHypertensionUnknownDiabetes mellitusUnknown Problems Active Problems Medical Problem Onset Date Status Insulin pump in place Unknown Active Fracture of left patella Unknown Active Type 2 diabetes mellitus with hyperglycemia Unkn own Active Stented coronary artery Unknown Active Uterine fibroid Unknown Active Dietary counseling and surveillance Unknown Active Pelvic pain Unknown Active Coronary artery disease Unknown Active Abscess Unknown Active Abscess Unknown Active Anemia Unknown Active Unstable angina pectoris Unknown Active Chest wall pain Unknown Active Dysmenorrhea Unknown Active Hyperlipidemia Unknown Active Hypoglycemia Unknown Active Acute coronary syndrome Unknown Active Troponin level elevated Unknown Active Tobacco abuse Unknown Active Tooth ache Unknown Active BMI 38.0-38.9,adult Unknown Active Insulin pump titration Unknown Active Family history of early CAD Unknown Acti ve Poorly controlled diabetes mellitus Unknown Active Cyst of left ovary Unknown Active Chest pain Unknown Active Hypertension Unknown Active Obesity Unknown Active Inactive/Resolved Problems Medical Problem Onset Date Status Acute flank pain Unknown Resolved Acute lumbar radiculopathy Unknown Resol juliana Acute chest wall pain Unknown Resolved Serous otitis media Unknown Resolved Paresthesia Unknown Resolved Diabetes mellitus Unknown Resolved Cervical radiculopathy Unknown Resolved Anemia Unknown Resolved Dental caries Unknown Resolved Diarrhea Unknown Resolved Hyperglycemia Unknown Resolved Congested nose Unknown Resolved BMI 37.0-37.9, adult Unknown Resolved Nausea & vomiting Unknown Resolved Abdominal pain Unknown Resolved Medications Medication Status Dose Units Route Directions Qty Days St art Date Stop Date End Date Instructions Adherence Empagliflozin 25 mg tablet Discontinued 25 MG PO Daily 90 January 13, 2024 10:39amJuly 2024 8:08amInsulin Aspart (Niacinamide) (Fiasp U-100 Insulin) 100 unit/mL uiedinpoGfnprkntvecz9ZHAUJRLwa as Udlawgrm11Mquazq 2023 12:00amSeptember 2023 12:55pm80 UNITS IN INSULIN PUMP DAILY Insulin Aspart (Niacinamide) (Fiasp U-100 Insulin) 100 unit/mL solution Fdrfjivzqxcp7LNJKBOGlv as Kyvehnof28Ahytzckrf 2023 12:54pmJuly 2024 7:58am80 UNITS IN INSULIN PUMP DAILYBlood-Glucose Sensor (Dexcom G6 Sensor) deviceDiscontinued0.Dfaum1Ejmfxyk 2023 12:00amJuly 2024 7:45amUse to monitor BG, Change Every 10 DaysBlood-Glucose Transmitter (Dexcom G6 Transmitter) deviceDiscontinued0.Dwpdr4Wfcvxvx 2023 12:00amJuly 2024 7:45amuse with Dexcom G6 Sensor, change every 90 daysFerrous Sulfate 325 mg (65 mg iron) ppdkzrMwtxrsaxrbzp917CSPAOdvnmLwe 2017 12:00amMarch 2018 11:18pmErgocalciferol (Vitamin D2) 50,000 unit badblwjEmnrykmoubdj2EZVBCPwcssMzf 26th, 2018 12:00amMarch 2018 11:18pmMetformin 500 mg tablet extended release 24 zqBpzmwndvnaug0329TSIPTcqrk dailyNovember 30, 2017 12:00amMarch 2019 12:12amNaproxen 500 mg iifhrzQnbaqyguurha1RCWVGG9L as needed for PainNovember 30, 2017 12:00amJanuary 2018 10:11amInsulin Aspart U-100 100 unit/mL insulin wruBtqngcwbwwpl8HYRJYRHFOGWotrmq meals and at bedtime Protocol: *CARB COVERAGE 1:1*GIVE 1 UNIT OF ASPART FOR EVERY 1 GM CHO EATEN AT MEALSNovember 30, 2017 12:00amOct[facility] 2018 12:35pmPlease contact the information source for Protocol details.Metformin 750 mg tablet extended release 24 hr DiscontinuedNovember 30, 2017 12:00amMay 2017 12:46amDuloxetine 60 mg capsule,delayed release(DR/EC)Hsoastapcapv00SRNVMjcnuRkk 26th, 2018 12:00am May 05, 2019 12:35pmInsulin Glargine (Basaglar Kwikpen U-100 Insulin) 100 unit/mL (3 mL) insulin inuTdqvjeguygxa9STKYVYOTVHSbntge meals and at bedtime Protocol: *CARB COVERAGE 1:1*GIVE 1 UNIT OF ASPART FOR EVERY 1 GM CHO EATEN AT MEALSNovember 30, 2017 12:2018 11:19pmPlease contact the information source for Protocol details.Alogliptin 25 mg dgybalVglnkzakbath16CMMOWtjuaUfc 26th, 2018 12:00[facility] 2018 11:18pmCanagliflozin (Invokana) 300 mg tablet Ouwlnkzsyuay224OVBKAajuvVbx 26th, 2018 12:00[facility] 2018 11:18pm Azithromycin (Zithromax Z-Andrea) 250 mg xxwssxSbabzsedmxjm254RQQKObycb6Buj 26th, 2018 12:2018 10:83jr572WA PO DAY ONE, 250MG PO DAYS 2-5 Benzonatate (Tessalon Perles) 100 mg vtfgzhpIvfnovgbrgrn635WJIVP6T as needed for qmrxq55EmfNovember 30, 2017 12:2018 10:11amAlbuterol Sulfate 90 mcg/actuation HFA aerosol cpytdcbIpfxktcxjloc6OFJSWXTXOHVWXP1D as needed for shortness of breath or dvtzvqsw1Ugn2017 12:2018 11:18pm administer with spacerDoxycycline Hyclate 100 mg gfskvtdPddwfsyklffk494SQZUAkldh mayzd4984Izlwywtm2018 1:00rc 2018 11:18pmHydrocodone- Acetaminophen (Lewis) 5-325 mg pjizxcDkhunagnoygo7ZRWFOS2N as needed for wzom551 August 29, 2018February 2018 1:00amFebruary 2018 1:03am Hydrocodone-Acetaminophen (Lewis) 5-325 mg upgwgvIdihynbpmcmf6OEANBK3K73Kwd 2018July 2018 6:52pmSulfamethoxazole-Trimethoprim (Bactrim Ds) 800-160 mg ojjnjwQjcfeajzvwif1DDWWUNrgxq pdmye4761Nlu2018 12:00amJuly 2018 6:52pmInsulin Glargine (Lantus U-100 Insulin) 100 unit/mL AbzbufaxTmtgqojxnndv51 UNITSUBCUTDaily at bedtimeJu2018 12:00amOctober 2018 12:35pm Ibuprofen 800 mg umfmghMluhshktzatk763UGXSCjwmx times daily as needed for pain20 January 11, 2019 12:00amOctober 2018 12:35pmNitroglycerin 0.3 mg/hr patch 24 mddeNcmwrpsnvlfy8OFHKGAEYICQYUDFIoxsb as needed for Chest PainOctober 2018 12:00amMarch 2023 11:44amapply patch for 12-14 hours daily then remove Atorvastatin 40 mg pxcbpeEcycdysqklqm90FGHYBwlwn morningOctober 2018 12:37pmMay 2024 3:40pmInsulin Lispro (Humalog U-100 Insulin) 100 unit/mL TgfmfonwDrrtnduudlcm9VXORGXIOXHYv DirectedOctober 2018 12:00amMarch 2019 12:12amFerrous Sulfate 325 mg (65 mg iron) ukvvasDxnnmcpffzsg064QRLARmzza kaafu93Ifxockrx2018 1:00amMarch 2019 12:12amOndansetron Hcl 4 mg bargjtKfwhxqsgjzdx0OWLKB8E as needed for nausea and rtnngpbi794Uciuhzx 2022 12:00amSeptember 2024 10:42amLoperamide (Imodium A-D) 2 mg capsule Sxkurdakgevh7UENIA1M as needed for loose eglvm88Bjtfdxu 2022 12:00amMarch 2023 11:43amChlorhexidine Gluconate (Peridex) 0.12 % mouthwashDiscontinued 56FJPWURFRRxabx975Ilpaptfb 2023 1:00amMay 2024 3:40pmHydrocodone- Acetaminophen 5-325 mg uajgnoSlurfomftixu5HYQXIBiaoj times daily as needed for zvhx20Egxgcbqi2023May 2024 3:40pmPenicillin V Potassium 500 mg odlrshRbwyeiqhyhry038ZZQAJrmqe ysfyh2443Kfrecjcg 2023 1:00amMay 2024 3:41pmLidocaine (Lidoderm) 5 % adhesive patch,fxfzinblfBpiknmatlvsi4NDHDZAUDLRCK Rdauf3503Jrb 2024 12:00amJuly 2024 7:44amleave on most painful area for up to 12 hrsIbuprofen 600 mg pjldqpJcymlkwngoho866HHPWJ3I as needed for pain 305y 2024 12:00amSeptember 2024 10:41amCyclobenzaprine 10 mg qhydiiNeochyepiofh05JPMRR6U as needed for kvze585Cez 2024 3:54pmJuly 2024 7:41amAtorvastatin 40 mg bmhrfaKyvgyj43WRTHZerawHzbxupbhe 2024 12:00amComplies with drug therapyPrednisone 10 mg LuoanaTybiyabpemum42WEDSAaryh 2017 12:00amJanuary 2018 10:11amadminister with food or milk Amoxicillin 500 mg XrogotNkmpctbgrtop494UMTAQulrn times gmbke71Tdp2017 12:00amJanuary 2018 10:11amAmoxicillin-Pot Clavulanate (Augmentin) 875-125 mg arorfcYoevwwpjumwd0JFQWCTuslt qtucx13Pgguide 2018 1:00amFebruary 2018 8:58pmKetorolac 10 mg qjkldzYetfjmiglhgr75WXRUL0K as needed for cjpi0Bizjk 2018 12:00amMay 2018 9:46pmClindamycin Hcl 300 mg capsuleDiscontinued 450MGPOThree times daily22.55March 2018 12:00amApril 2018 12:00am October 09, 2018 12:02amDuloxetine 30 mg Capsule,Delayed Release(Dr/Ec) Zjurjuuwffbx02XHDBRjxudnnWsxqinfjx 2018 12:00amOctober 2018 12:35pm Atorvastatin 40 mg DumeeyRudbphwgqpaj31JUJAGezhx tohmnwd6881Rykwgoxja2018 12:00amOctober 2018 12:37pmNitroglycerin 0.4 mg Tablet, SublingualActive 0.5NEESPUSPYBDLT4Z as needed for Chest Tmwt2252Bjksvyxaj2018 12:00am Complies with drug therapyAspirin 81 mg Tablet,PuinvysiVyvvgsycsiyo02WIBZTmdtv2 March 24, 2019 12:00amJune 2019 2:56pmMetoprolol Tartrate 25 mg SmsesxGwukarftxylf12.5MGPOTwice xkdjf0457Utbvtvnue2018 12:00amJune 2019 3:00pmTicagrelor (Brilinta) 90 mg KiymufKwprakaahqha53QIDMGvjab pviaf94500 March 24, 2019 12:00am[facility] 12:11amAmoxicillin-Pot Clavulanate 875-125 mg DuplogGqhceewvlfxb1VQSURRcxpj bhzli977RjxkskxduMarch 24, 2019 12:00am May 05, 2019 12:34pmDoxycycline Hyclate 100 mg vrovqyDiglxsremooz178FFYU Twice dailyDece2018 1:00am[facility] 2019 12:12amHydrocodone- Acetaminophen (Lewis) 5-325 mg cqotneSudtrxkthjdg4TPTHRIuuqq times daily62 June 17, 2019[facility] 2019 12:12amClopidogrel 75 mg gvjdrfVpolfy12CQTS DailySelect [facility] 2019 12:00amComplies with drug therapyInsulin Lispro (Admelog U-100 Insulin Lispro) 100 unit/mL solutionDiscontinuedSep 2019 12:00am December 21, 2019 2:57pmEmpagliflozin 25 mg sjspfvPamjeklbtzdc68YVLUAnsjoMoifb 2019 12:00amJuly 2023 10:40amDulaglutide 1.5 mg/0.5 mL pen injector Discontinued1.5MGSUBCUTevery weekSelect [facility] 2019 12:00amFebruary 2023 12:19pmAspirin 81 mg Tablet,Delayed Release (Dr/Ec)Rrgwonqtvkjf83GGYLDfrtwWsjr 2019 12:00amMarc2023 11:40amInsulin Lispro (Humalog U-100 Insulin) 100 unit/mL YzcreweqOhhpmfddzlqu779UQEIQVAWZUOm DirectedJune 2019 12:00am September 25, 2023 11:45amMetoprolol Tartrate 25 mg yfqsozVxfjzhmcujmq14RKQBPiufc dailyJune 2019 3:00pmSeptember 2024 10:47amGabapentin 600 mg Tablet Rxpieqcyzpfc151JPSGOjnqt dailyJune 2019 12:00rc2023 11:42am Cyanocobalamin (Vitamin B-12) (Vitamin B-12) 1,000 mcg VdvkqwAexzkvflfeeb9891CQK POTwice dailyJune 2019 12:00[facility] 2023 11:41amLisinopril 5 mg AbnqvoPnxmcb6ZHJQVgkhaGhqd 2019 12:00amComplies with drug therapy Ergocalciferol (Vitamin D2) (Vitamin D2) 1,250 mcg (50,000 unit) Capsule Mtipagulfius7498VXQLZAgvcp a WeekJune 2019 12:00amMa2023 11:45am Hydrocodone-Acetaminophen 5-325 mg iayoxsQnxblzogvufd2VPGJPY5S as needed for dcbt312Emed 2019July 2019 4:45pmErgocalciferol (Vitamin D2) (Vitamin D2) 1,250 mcg (50,000 unit) zqruassQlkkvh5374PMIDDekske weekSelect [facility] 2023 11:42amComplies with drug therapyInsulin Lispro (Humalog U-100 Insulin) 100 unit/mL gnluavvdShixmqpkrqzr7CRDVFZYv DirectedSelect [facility] 2023 11:42amAugust 2023 9:23amuse with insulin pumpInsulin Lispro (Humalog U-100 Insulin) 100 unit/mL ikosomavIrohbhoalugh2MTYHUXSe Ickxlsjm61Hqczdx 2023 9:21am March 17, 2024 12:54pm80 units/day insulin pumpClindamycin Hcl 150 mg ksoaaenVuzeypdtroom627BMIEQ7V968Cxzw 2019 12:00amJuly 2019 4:45pm Gabapentin 600 mg AeruegIiydwdbfdyzp031SIKAWzjvg dailyJuly 2019 12:00am January 26, 2020 4:53pmClindamycin Phosphate 1 % orhouuloShdmrhjkoowu6ULBHBB TOPICALTwice zbdsi89Nxjg 2019 12:00amMarc2023 11:41amApply to left axillary areaMetformin 500 mg cogbqyWsdrpybqxyii778AFXEUskpu emhbg01Zqjn 2019 12:[facility]2023 11:98an112 twice a day x2 weeks, then 1000 mg twice a dayDoxycycline Hyclate 100 mg zrsscufEonksnwvsxjr199CHJYNa Cecqzhlv4373Mocv 2019 12:00rc2023 11:39sx097 mg p.o. twice a day for 10 days, then continue 100 mg daily x1 month for hidradenitisPantoprazole (Protonix) [address] for susp in eelaulBvgcpyhzdaui70IPDMLihbu62Cffh 2019 12:[facility] 2023 11:44amChlorhexidine Gluconate (Hibiclens) 4 % liquid Mpwqbspdztgn6IHHUAKOITWDVECwvio037231Ktas 2019 12:rch 2023 11:41amHibiclens shampoo apply to all your body once daily, keep it for couple of minutes and then wash itPenicillin V Potassium 500 mg mfaligSpjdlwvuwsws1919 MGPOTwice xzkel75Chi 2021 12:00amMah 2023 11:44amNaproxen (Naprosyn) 500 mg patbbqTqkzydgemylo249WLOXTndee daily as needed for qfzo85Dxg 2021 4:02pmMarch 2023 11:43amHydrocodone-Acetaminophen 5-325 mg zimwarAshkkaqnmctb8PMSBAS0F as needed for lpxt836Gnjalqz 2022March 2023 11:42amFluticasone Propionate (Flonase Allergy Relief) 50 mcg/actuation spray,ltayihjeotMplkpu0VKNCDWDPAMFMSQZOqfxf crqoo6272Nnmohwix 2024 1:00am administer into each nostrilComplies with drug therapyLoratadine (Claritin) 10 mg mxwyizYfgqtj62MJSNFcigy2218Ydeyomgl 2024 1:00amComplies with drug therapySemaglutide (Ozempic) 2 mg/dose (8 mg/3 mL) pen jluqcxcwQktxdauxfwjg6YC SUBCUTOnce a weekFebruary 2023 1:00amAugust 2023 9:23amFreeTextSimg Subcutaneous once weekly; Note: Source Status: Continue; Refills: 11; Qty: 3 Milliliter; Provider: Cassius Peacock KFenofibrate Nanocrystallized 145 mg tablet Joijjfggspht474IKKFPebupIkotn 2023 12:00amSeptember 2024 10:42am Pregabalin 150 mg ztbwzbgEmhuby446NJBAWskoa times dailySelect [facility] 2023 12:00am Complies with drug therapyIsosorbide Mononitrate 30 mg tablet extended release 24 lbVibxpu86IVIQSavdmWaefo 2023 12:00amComplies with drug therapyinsulin pump cart,cont inf,BT (Omnipod Dash Pods (Gen 4))Discontinued.[facility] 2023 12:00amJuly 2024 7:58ampen needle, diabetic (BD Ultra-Fine Bessie Pen Needle)Active.[facility] 2023 12:00amblood sugar diagnostic (FreeStyle Lite Strips)Discontinued.[facility] 2023 12:002023 8:44am insulin syringe-needle U-100 (BD Insulin Syringe Ultra-Fine)Active.[facility] 2023 12:00amSemaglutide (Ozempic) 0.25 mg or 0.5 mg(2 mg/1.5 mL) pen injectorDiscontinued0.5MGSUBCUTSelect [facility] 2023 12:00amMarch 2023 11:44am blood-glucose transmitter (Dexcom G6 Transmitter)Discontinued.[facility] 2023 12:00amOctober 2023 3:50pmblood-glucose sensor (Dexcom G6 Sensor) Discontinued.[facility] 2023 12:00amOctober 2023 3:50pmMeclofenamate 100 mg slzvhxwAeafmesndrxk332VOFPZqlpf times daily as needed for painMar 2023 12:00amSeptember 2024 10:41amInsulin Pump Cart,Auto,Bt-Cntr (Omnipod 5 G6 Intro Kit (Gen 5)) cartridgeDiscontinued0.ROUTE.YRQXHWNHZ8Lahfo 2023 12:00amJuly 2024 7:58amAs directedInsulin Pump Cart,Automated,Bt (Omnipod 5 G6 Pods (Gen 5)) cartridgeDiscontinued0.ROUTE.CMHLOKOUI73Pfcez 2023 12:00amJuly 2024 7:58amchange every 48 hoursBlood Sugar Diagnostic (True Metrix Glucose Test Strip) stripActive0.ROUTE.CDQVEXQYG827Biocp 2023 12:00amtest qd with true metrix meterGlucagon (Gvoke Hypopen 2-Pack) 0.5 mg/0.1 mL auto-srepeotrKbmixyadqbsa1AHAQLOJFZbkc1.4[facility] 2023 12:00amSeptember 2024 10:41amprn hypoglycemia, may repeat in 15 minutesSemaglutide (Ozempic) 2 mg/dose (8 mg/3 mL) pen higravuoPrtwujemvifv6FVVPPQKDLebo a week9 February 25, 2024 9:22amJuly 2024 7:28qk5lb Subcutaneous once weekly Empagliflozin 25 mg zbthggMrgztj49MARVJfegw41Tbtf 2024 8:04amComplies with drug therapyTirzepatide (Mounjaro) 5 mg/0.5 mL pen vtjckecpBpffvo3MNBOVDNFindpe zvfk5Mqvc 2024 12:00amComplies with drug therapyInsulin Aspart (Niacinamide) (Fiasp Flextouch U-100 Insulin) 100 unit/mL (3 mL) insulin pen Souagh4GAXAWWIsi as Npszlkqp38Wpsz 2024 12:00amicr 1:5 ac tid plus corrective scale 1:20 ac, hs if >200 half dose) subcutaneously use as directed; If off insulin pumpComplies with drug therapyBlood-Glucose Sensor (Dexcom G7 Sensor) vkmxobJfnmjz2OCWOVQIRHB.OCLJZMJTF6Zyup 9th, 2025 12:00amchange every 10 daysInsulin Chemical Plant Manager Cart,Aut,G6/7,Cntr (Omnipod 5 G6-G7 Intro Kt(Gen5)) cartridge Active0.ROUTE.WYNXOFRFX9Veyb 2024 12:00amuse with omnipod 5 g6/g7 pods Insulin Pump Cart,Auto,Bt,G6/7 (Omnipod 5 G6-G7 Pods (Gen 5)) cartridgeActive0 .ROUTE.IVDPXRBCI97Vlfe 2024 12:00amchange pod every 2 days (50 pods for 90 days) Immunizations Immunization Event Date Not Given Reason Dose Number Fruit Press Operator Lot Number Vaccine Information Statement (VIS) Detail Administration Location COVID-19 mRNA, Comirnaty (Dental Fix RX) November 21, 2020 COVID-19 mRNA, Comirnaty (Dental Fix RX)December 12, 2020Tetanus, Diphtheria, Pertussis (Tdap)July 30, [id number] CtrTrivalent Influenza VaccineAugust 2015 Medical Equipment Device Date Implanted Device Details CL CLOSURE DEVICE EXOSEAL 6F March 23 9 CL STENT DWIGHT 2.25 X 33September 2018CL STENT DWIGHT 4.0 X 18September 2018 Procedures Procedure Date Performed Status CT head/brain wo con March 29, 2025 10:39a m completed Relevant Diagnostic Tests and/or Laboratory Data Laboratory Results Test Collection Date/Time Result Date/Time Result Interpretation Reference Range Result Comment Performing Site Corrected White Blood Count March 29, 2025 9:47am March 29, 2025 10:58am 7.9 10*3/uL 3.8-11.[address] [place] [address] Ctr [id number] [address] [facility] [address]Wfjudadzgez WBC CountSeptember 2024 9:47amSeptember 2024 10:58am7.9 10*3/uL3.8-11.6F[facility] [id number] [address] [facility] [address]Bwx Blood CountSeptember 2024 9:47amSeptember 2024 10:58am4.09 10*6/uL3.60-5.00[facility] [id number] [address] [facility] [address]854MhttzqdnkpOocdqzouq 2024 9:47amSeptember 2024 10:58am8.5 g/dLBelow low epakhr24.8-15.4FBl[facility] [id number] [address] [facility] 41232YhkfpywxsqHybbtaepv 2024 9:47amSeptember 2024 10:58am27.1 %Below low .0-46.4FBl[facility]ard [facility] [id number] [address] [facility] 20224Ttcs Corpuscular VolumeSeptember 2024 9:47amSeptember 2024 10:58am66.3 fLBelow low zimako63-572RhwvkycqkHocking Valley [facility] Hospital Ctr [id number] [address] [facility] [address]808Ojcl Corpuscular HemoglobinSeptember 2024 9:47amSeptember 2024 10:58am20.7 pgBelow low hvcyrf32.7-34.3FBlanchard [facility] [id number] [address] [facility] [address]Bhqj Corpuscular Hemoglobin ConcentSeptember 2024 9:47am Maryan 2024 10:58am31.3 g/dLBelow low ozspva56.0-35.0[facility] [id number] [address] [facility] [address]Kzt Cell Distribution WidthSeptember 2024 9:47amSeptember 2024 10:58am17.3 %Above high sesgot10.9-15.3FBl[facility] [id number] [address] [facility] [address]46Xcvydqqu CountSeptember 2024 9:47amSeptember 2024 10:53rh261 10*3/uLAbove high vbrizs352-296EtqofzsthHocking Valley Community Hospital Ctr [id number] [address] [place] [address] 27259Rcuu Platelet VolumeSeptember 2024 9:47amSeptember 2024 10:58am8.4 fL6.3-10.7FBlanchard [facility] [id number] [address] [facility] 22883Txodqzme Distribution WidthSeptember 2024 9:47amSeptember 2024 11:38am19.28 %0.00-20.00[facility] [id number] [address] [facility] 24595Zthliutornf (%) (Auto)March 29, 2025 9:47amSeptember 2024 11:38am62.6 %.[facility] [id number] [address] [facility] [address]379Tiefvgvswcy (%) (Auto)March 29, 2025 9:47amSeptember 2024 11:38am26.8 %.[facility] [id number] [address] [facility] [address]3414Cbbfmxisa (%) (Auto)March 29, 2025 9:47amSeptember 2024 11:38am6.5 %.[facility] [id number] [address] [facility] 46238Fhhbbelmmev (%) (Auto)March 29, 2025 9:47amSeptember 2024 11:38am2.7 %.[facility] [id number] [address] [facility] 21683Xbmzvnntr (%) (Auto)March 29, 2025 9:47amSeptember 2024 11:38am1.4 %.[facility] [id number] [address] [facility] 38452Uvgmlmepi RBC Relative Count (auto)March 29, 2025 9:47am March 29, 2025 11:38am0.1 /100{WBC}0-0.5FBlanchard [facility] [id number] [address] [facility] [address]Bsvxhphraea # (Auto)March 29, 2025 9:47amSeptember 2024 11:38am4.9 10*3/uL1.8-7.7FBlanchard Valley [facility] [id number] [address] [place] [address]Lbclhkontdc # (Auto)March 29, 2025 9:47amSeptember 2024 11:38am2.1 10*3/uL1.00-4.8[facility] [id number] [address] [facility] [address]Evgoqfilz # (Auto)March 29, 2025 9:47amSeptember 2024 11:38am0.5 10*3/uL0.0-0.8[facility] [id number] [address] [facility] 48423Zgavhokcnnc # (Auto)March 29, 2025 9:47amSeptember 2024 11:38am0.2 10*3/uL0.0-0.45[facility] [id number] [address] [facility] [address]Ibnhuopan # (Auto)March 29, 2025 9:47amSeptember 2024 11:38am0.1 10*3/uL0.0-0.2FBl[facility]ard [facility] [id number] [address] [facility] [address]Del Blood Cell MorphologySeptember 2024 9:47amSeptember 2024 11:38amN/[facility] Ctr [id number] [address] [place] [address] 18210TgypvieggkcntWfnqjnluy 2024 9:47amSeptember 2024 11:38amSlightHocking Valley Community Hospital Ctr [id number] [address] [place] [address] 52355UocvcalpvxaoqWxvbrafmx 2024 9:47amSeptember 2024 11:38amSlightHocking Valley Community Hospital Ctr [id number] [address] [place] [address] 57178LcvhicgrlwfrpsTffahfcda 2024 9:47amSeptember 2024 11:38amSlightHocking Valley Community Hospital Ctr [id number] [address] [place] [address] 83239VlwjcdegsgbtWwmlfuwxh 2024 9:47amSeptember 2024 11:38amModerateHocking Valley Community Hospital Ctr [id number] [address] [place] [address] 90950FyoznkxglchyRbvvsyjxh 2024 9:47amSeptember 2024 11:38amMarkedFBlanchard Valley Health System [facility] [id number] [address] [facility] 39736FspwgwkywlecAitoakbog 2024 9:47amSeptember 2024 11:38amS[facility] [id number] [address] [facility] 79806AjxhdowexgCmkyxflah 2024 9:47amSeptember 2024 11:38amSSelect [facility] - [facility] [id number] [address] [facility] 08621ZhzzxgioaekrTqjjbwbto 2024 9:47amSeptember 2024 11:38amSSelect [facility] [id number] [address] [place] [address] 47033KrcgjnvuhkbyRdercuomc 2024 9:47amSeptember 2024 11:38amSSelect [facility] [id number] [address] [place] [address] 26407Aalolesp EstimateSeptember 2024 9:47amSeptember 2024 11:38amIncreasedNoSelect Medical [facility] [id number] [address] [place] [address] 69060Snffqkic Morphology CommentSeptember 2024 9:47amSeptember 2024 11:38amNormalNoSelect Medical [facility] [id number] [address] [place] [address] 70588Gmhluubqief TimeSeptember 2024 9:47amSept2024 11:23am10.6 s9.0-12.9A hematocrit value greater than 55% may lead to inaccurate results in coagulation testing. Patientshaving hematocrit values >55% require a special collection tube for coagulation studies. Please contact the laboratory at [phone] for redraw instructions.[facility] [id number] [address] [facility] 99812Dhzklcrvt Time International RatioSeptember 2024 9:47am March 29, 2025 11:23am0.9INR Therapeutic Range A) Pre- and Peroperative OAT started two weeks before surgery. NOT HIP SURGERY: 1.5 - 2.5 HIP SURGERY: 2 - 3B) Primary and secondary prevention of venous THROMBOSIS: 2 - 3C) Active venous thrombosis, pulmonary embolismand prevention of recurrent venous thrombosis: 2 - 3D) Prevention of arterial thromboembolismincluding patients with mechanical heart valves: 3 - 4.5F[facility] [id number] [address] [place] [address] 02662Hqyegajmc Partial Thromboplast TimeSeptember 2024 9:47am March 29, 2025 11:23am27.2 s25.1-36.5A hematocrit value greater than 55% may lead to inaccurate results in coagulation testing. Patientshaving hematocrit values >55% require a special collection tube for coagulation studies. Please c ontact the laboratory at [phone] for redraw instructions.[facility] [id number] [address] [facility] 99190Nitjjbm LevelSeptember 2024 9:47amSeptember 2024 11:64mq894 mg/dLAbove high xuauoj22-955UPI recommended reference rangeRandom Glucose Reference Range is dependent on time and content of last meal. Glucose of more than 200 mg/dL in a nonstressed, ambulatory subject supports the diagnosisof Diabetes Mellitus.[facility] [id number] [address] [facility] 81385Ljiur Urea NitrogenSeptember 2024 9:47amSeptember 2024 11:21am12 mg/dL7-25[facility] [id number] [address] [facility] 92408LzyexvezdlJhgksyzie 2024 9:47amSeptember 2024 11:21am0.78 mg/dL0.60-1.20[facility] [id number] [address] [facility] 53294Oalnjbcfl GFR (CKD-EPI)March 29, 2025 9:47amSeptember 2024 11:21am> 60.0 mL/MinHocking Valley Community Hospital Ctr [id number] [address] [facility] 00717Lvomir LevelSeptember 2024 9:47amSeptember 2024 11:34bf841 mmol/LBelow low brvocg983-068RrygwikkeHocking Valley Community Hospital [facility] [id number] [address] [place] [address] 88315Ricbezfan LevelSeptember 2024 9:47amSeptember 2024 11:21am3.5 mmol/L3.5-5.1FBlanchard [facility] [id number] [address] [facility] 57060Thmqlrhk LevelSeptember 2024 9:47amSeptember 2024 11:63ce563 mmol/J03-774TmhbfnrvoHocking Valley Community Hospital [facility] [id number] [address] [facility] 12521Objpzm Dioxide LevelSeptember 2024 9:47amSeptember 2024 11:21am23.2 mmol/L21.0-31.0[facility] [id number] [address] [facility] 50984Yfdqy GapSeptember 2024 9:47amSeptember 2024 11:21am10.3 mEq/L6.0-15.0[facility] [id number] [address] [facility] 86144Sewczxl LevelSeptember 2024 9:47amSeptember 2024 11:21am8.9 mg/dL8.6-10.3FBlanchard Valley Health [facility] [id number] [address] [facility] 14165Kglvn ProteinSeptember 2024 9:47amSeptember 2024 11:21am7.1 g/dL6.4-8.9[facility] [id number] [address] [facility] 04543SbupeazGyquwqwnm 2024 9:47amSeptember 2024 11:21am 4.2 g/dL3.5-5.7FBlanchard Valley Health [facility] [id number] [address] [facility] 84822TmpmzxosPllnhpuzz 2024 9:47amSeptember 2024 11:21am 2.9 g/dLHocking Valley Community Hospital [facility]tr [id number] [address] [facility] 99427Oldpgkt/Globulin RatioSeptember 2024 9:47amSeptember 2024 11:21am1.4FBlanchard Valley Health System [facility] [id number] [address] [facility] 92449Lmlui BilirubinSeptember 2024 9:47amSeptember 2024 11:21am0.2 mg/dLBelow low normal0.3-1.0[facility] [id number] [address] [facility] 69306Ggflofphu Amino Transf (AST/SGOT)March 29, 2025 9:47am March 29, 2025 11:21am14 U/Q61-74UmdeghflsHocking Valley Community Hospital [facility]tr [id number] [address] [facility] 97068Oquqbvs Aminotransferase (ALT/SGPT)March 29, 2025 9:47am March 29, 2025 11:21am14 U/L7-52[facility] [id number] [address] [facility] 64199Byrrihut PhosphataseSeptember 2024 9:47amSeptember 2024 11:21am79 U/P43-042KkejdyryrHocking Valley Community Hospital [facility]tr [id number] [address] [facility] 04779Njlue Creatine KinaseSeptember 2024 9:47amSeptember 2024 11:50ly541 U/D00-264MivvcyarfHocking Valley Community Hospital [facility]tr [id number] [address] [facility] 11701Hkwivjqd I High SensitivitySeptember 2024 9:47amSeptember 2024 11:26am3 ng/L0-15The Troponin units of report have been changed to meet the Chest Pain Accreditation requirement, element EC5.M1l2. Troponin units are changed from pg/ml to ng/L. Also, the decimal is removed and results are in whole numbers.[facility] [id number] [address] [facility] 75328Porqxxvp Creatinine Clearance (ChemSeptember 2024 9:47am March 29, 2025 11:01vj973.67[facility] [id number] [address] [facility] 02815Gkqgexw GlucoseSeptember 2024 11:20amSeptember 2024 11:92qn659 mg/dLRandom Glucose Reference Range is dependent on time and content of last meal. Glucose of more than 200 mg/dL in a nonstressed, ambulatory subject supports the diagnosis of Diabetes Mellitus.Point of Care testing Diagnostic Imaging Reports Author Guilherme Noriega [facility] Medical CenterAuthoredSeptember 2024 11:34amReport Dictated Date/TimeDictated ByStatusRadiology ReportSeptember 2024 11:34am Guilherme Noriega Jr DOcompleteSelect Medical [facility] [address] [place] [address] CT Scan Report Signed Patient: Anahi Dinero I MR# : [id number] : 1985 Acct:[id number] Age/Sex: 39 / F ADM Date: 5 Loc: ER Room: Type: [facility] ER Attending Dr: Copies to: Ahsan Mata DO~ Ordering Provider: Ahsan Mata DO Date of Service: 03/29/25 CT/CT head/brain wo con: stroke, SYMPTOMS STARTED [address] BRAIN WITHOUT CONTRAST: CLINICAL HISTORY: Right leg numbness and tingling for 4 days COMPARISON: None TECHNIQUE: Contiguous axial unenhanced images were obtained through the brain. This CT exam was performed using one or more following dose reduction techniques: Automated exposure control, adjustment of the mA and/or kV according to patient size, or use of iterative reconstruction technique. FINDINGS: There is no evidence of midline shift, intra or extra-axial fluid collection, hemorrhage or CT evidence of stroke. Posterior fossa appears unremarkable. Visualized intraorbital contents demonstrate no acute findings. Visualized paranasal sinuses are clear. The surrounding soft tissues are normal. CT/CT head/brain wo con IMPRESSION: NO ACUTE INTRACRANIAL ABNORMALITY. Impression dictated by: Guilherme Noriega Jr., D.O. 03/29/2025 11:36 AM Dictation Location: [place] [address] Transcribed By: [facility] 03/29/25 1136 Dictated By: Guilherme Noriega Jr, DO 03/29/25 1134 Signed By: <Electronically signed by Guilherme Noriega Jr, DO in OV> 03/29/25 1136 Vital Signs Vital Reading Result Reference Range Collection Date/Time Height 65 [in_i] March 29, 2025 9:07dzFokbdm233.60 kgSeptember 2024 9:31amBody Qakmjnhtuai19.4 [degF]97.6-99.0September 2024 9:31amHeart Rate76 /min 60-100Sept2024 11:27amRespiratory rate20 /yrj59-80Mhbneezyd 22nd, 2025 11:27amOxygen saturation by Pulse ahgvxcbv379 %95-100Sept2024 11:27amBP Mngghpbh669 mm[Hg]100-140Sept2024 11:27amBP Lvcxjpjxm23 mm[Hg]60-100September 2024 11:27am Advance Directives Advance Directive Response Recorded Date/ Time Advance Directives No July 10, 2017 4:10pm Insurance Providers Guarantor Anahi Dinero I Address [facility] [address]Wplrhmw Info.Home Phone: Payer Policy Id Subscriber's Name Subscriber Id Effectiv e Date Expiration Date Shyanne VÁSQUEZ [id number] Anahi Dinero I [id number] Encounters Encounter Location(s) Arrival/Admit Date Discharge/Depart Date Provider(s) Departed Emergency -Emergency Room March 29, 2025 9:14am March 29, 2025 1:44pm Departed Physician/Provider Office Visit-[facility] 10:[facility]am[facility] 11:20amRaul Rivas , Recent Diagnosis Onset Date Admit Date Fracture of left patella Unknown April 22, 2025 10:03am Assessments Diagnosis Onset Date Resolution Status Admit Date Fracture of left patella acuteOct2024 10:03am Plan of Treatment [facility] 11:20amDiscussed with patient and company on the patient's symptoms, exam, and imaging. Likely etiologies of the patient's symptoms were discussed. Patient has symptoms consistent with a left patella fracture. We discussed treating this with surgical intervention. We will proceed with an open reduction internal fixation left patella fracture. We discussed the risks, benefits, and alternatives to surgery in general, including the potential outcomes with foregoing treatment altogether. The risks include, but are not limited to, the risk of anesthesia up to and including , infection, bleeding, tendon damage, nerve damage, vascular damage, stiffness, weakness, loss of range of motion, arthrofibrosis, failure to alleviate symptoms, worsening of symptoms, continued pain, continued mechanical symptoms, arthritic pain, post traumatic arthritis, wound healing problems, formation of cutaneous scars secondary to surgical incisions, deep venous thrombosis, pulmonary embolism, reflex sympathetic dystrophy, unforeseen complications and the need for further surgery. Patient should remain off work at this time. Procedure: ORIF left patella fracture Antibiotics: Ancef, [post op abx] DVT ppx: Aspirin 81mg BID x 4 weeks Same Day Surgery: Yes Bed: [Regular OR bed] Instruments needed: [] Future Tests Future scheduled test information is unavailable Pending Tests Pending diagnostic test information is unavailable Future Visits Future appointment information is unavailable Referrals to Other Providers Reason for Referral Referral Start Date Provider Lucio kirkpatrick Contact Information Provider Address Christina Arnold ACCOUNT GENERAL MANAGER-CWork Phone: [phone] [facility] [address] [facility] [address] Future Procedures Future procedure information is unavailable Future Medications Future medication information is unavailable Patient Instructions Instruction Admit Date Hand Numbness Peripheral neuropathy High blood sugar in adults - ED discharge instructionsSept2024 9:14am
[2025-04-23 11:17] VITALS: BP 125/73; PULSE 77; TEMP 36.3; O2SAT 100; BMI 37.9
[2025-04-29 13:28] LABS: Hematocrit 29.8 % (36.0-48.0); Hemoglobin 8.7 g/dL (12.0-16.0); Immature Granulocytes Abs Auto 0.04 10^3/uL (0.00-0.03); Immature Granulocytes Pct Auto 0.4 % (0.0-0.5); Lymphocytes Absolute Auto 2.2 10^3/uL (1.2-3.8); Mean Corpuscular HGB Conc 29.2 g/dL (29.9-35.2); Mean Corpuscular Hemoglobin 19.7 pg (26.7-34.0); Mean Corpuscular Volume 67.4 fL (81.0-99.0); Platelet Count 692 10^3/uL (150-450); Red Blood Count 4.42 10^6/uL (4.20-5.40); White Blood Count 11.2 10^3/uL (4.0-11.0)
[2025-04-29 13:48] LABS: Anion Gap 12.3; Blood Urea Nitrogen 10.0 mg/dL (7.0-18.0); Calcium 9.3 mg/dL (8.5-10.1); Carbon Dioxide 26.8 mmol/L (21.0-32.0); Chloride 100 mmol/L (98-107); Estimated GFR (African America >60 (>=60 mL/min/1.73m^2); Estimated GFR (Non-African Ame >60 (>=60 mL/min/1.73m^2); Glucose 243 mg/dL (74-106); Potassium 4.1 mmol/L (3.5-5.1); Sodium 135 mmol/L (136-145)
[2025-04-29] MEDS: FAMOTIDINE/PF 20 MG/2 ML VIAL IV (13:50)
--- NOTE | 2025-04-29 14:35 | PC.NURSE ---
1350: in to speak with pt regarding her procedure. procedure postponed by due to pts elevated blood sugar and WBC. pt educated by and the racebook writer on the importance of diet. office to call pt for a rescheduled date. pt given printed diabetes education and discharged to home.
== END 2025-04-29 14:15 | disposition home or self-care (01) ==
LOC: SURGOUT 13:07
PROVIDERS: Anesthesiology; Visit Provider Physician Assistant
DX: S82.002A Unspecified fracture of left patella, initial encounter for closed fracture (principal); Z53.8 Procedure and treatment not carried out for other reasons
CPT/HCPCS: 27524; 36415; 80048; 84702; 85025; J3490

== ENCOUNTER 2025-05-06 11:06 | Day surgery (SDC) | payer OTHER, SELFPAY ==
--- OUTSIDE RECORDS SUMMARY | 2025-04-26 09:30 | XMS_ITS | Encounter Summary ---
Author Organization [facility] Address [address] 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 [address], [address] [address] Phone: tel: fax: Referral IDStatusReasonStart DateExpiration DateVisits RequestedVisits [id number]/20/202510/20/202611 * Cardiovascular (Routine) - AuthorizedSpecialtyDiagnoses / ProceduresReferred By ContactReferred To Contact Diagnoses Pre-operative clearance Procedures ECG 12 Lead Nikki Villeda APRN-CNP [address] [facility] [address], [address] [address] Phone: tel: fax: Referral IDStatusReasonStart DateExpiration DateVisits RequestedVisits [id number]/20/202510/20/202611 Reason for Visit * ReasonCommentsPre-op ClearancePatella Vita Benjaminusky * Cardiovascular (Routine) - AuthorizedSpecialtyDiagnoses / ProceduresReferred By ContactReferred To Contact Diagnoses Pre-operative clearance Procedures ECG 12 Lead Nikki Villeda APRN-CNP [address] [facility] [address], [address] [place] [address] Phone: tel: fax: Referral IDStatusReasonStart DateExpiration DateVisits RequestedVisits [id number]/20/202510/20/202611 Encounter Details DateTypeDepartmentCare Team (Latest Contact Info)Ryyetxlawls83/20/2025 9:30 AM EDTOffice Visit [address] [place] [id number] Nikki Villeda APRNILIANA [address] 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 (Multi); BMI 36.0-36.9,adult; Current every day smoker; Coronary artery disease with angina pectoris, unspecified vessel or lesion type, unspecified whether seminole or transplanted heart; Hyperlipidemia, unspecified Discharge Disposition: Home Social History Tobacco UseTypesPacks/DayYears UsedDateSmoking Tobacco: Every DayCigarettes0.5 22.8Started: 2003Smokeless Tobacco: Never Tobacco Cessation:Counseling Given: Yes Alcohol UseStandard Drinks/WeekCommentsNever0 (1 standard drink = 0.6 oz pure alcohol)PHQ-2AnswerDate RecordedPatient Health Questionnaire-2 [id number] CommentsUnknownSex and Gender InformationValueDate RecordedSex Assigned at BirthNot on fileLegal GasWfxcnn19/25/2022 4:45 PM ESTGender IdentityNot on fileSexual OrientationNot on filedocumented as of this encounter Last Filed Vital Signs Vital SignReadingTime TakenCommentsBlood Vloszjsx776/6004/26/2025 9:58 AM EDT Djtav605804/26/2025 9:58 AM EDTTemperature--Respiratory Rate--Oxygen Saturation-- Inhaled Oxygen Concentration--Wpsimb77.8 kg (220 lb)04/26/2025 9:58 AM EDTHeight 165.1 cm (5' 5 )04/26/2025 9:58 AM EDTBody Mass Index36.6104/26/2025 9:58 AM EDT documented in this encounter Functional Status * BPAnswerDate of VlvyzmvmpzKipfmx930/6004/26/2025 9:58 AM Margie Collins CMA * PulseAnswerDate of TphcrxqutiFfptqd2128/20/2025 9:58 AM EDTMorrMargie mascorro CMA * Communicable Disease ScreeningQuestionAnswerDate of AssessmentAuthorDo you have any of the following new or worsening symptoms?None of these04/26/2025 9:48 AM Briseyda Henning documented as of this encounter Patient Instructions * Patient Instructions* Nikki Villeda APRN-CURRICULUM COACH - 04/26/2025 9:30 AM EDT Please bring all medicines, vitamins, and herbal supplements with you when you come to the office. Prescriptions will not be filled unless you are compliant with your follow up appointments or have a follow up appointment scheduled as per instruction of your physician. Refills should be requested at the time of your visit. EKG done in office today PLAN: Through informed decision making process incorporating patients unique circumstances, the followingtreatment plan will be initiated: 1. Prescription drug management of cardiovascular medication for efficacy, adherence to treatment, side effect assessment and polypharmacy. Current treatment clinically warranted and to continue without modifications. 2. No prohibitive cardiovascular risk to proceed with surgical procedure. Ok to interrupt Plavix 5 days prior then resume post-op. 3. Nicoderm patches have been sent in 4. Return for follow-up; in the interim, contact the office if new symptoms arise. LAYOUT TECHNICIAN annual You need to stop smoking. Though it is not easy, more than half of all adults smokers have quit. Weencourage you to write down all the reasons you should quit smoking and set a quit date for yourself. Ask us how we can help. You may also call 0-113-DMEU-NOW for free resources and assistance. * Attachments The following attachments cannot be sent through Care Everywhere. * Quitting smoking (Marshall[place]) documented in this encounter Progress Notes * JIMMY Willis - 04/26/2025 9:30 AM EDT Chief Complaint I need to get surgery on my knee Reason for Visit Patient presents to the office today for outpatient follow-up for cardiac risk stratification. Last evaluated in clinic by Dr. Javed October 2023. Presents today ambulatory with orthopedic device, walker and steady gait. Accompanied by spouse Patient denies any hospitalizations or significant changes to interval medical history since last office follow-up. History of Present Illness Patient presents to [facility] [place] to obtain cardiac risk stratification prior to a patella repair. Surgeon: Dr. Rivas Planned date: 2024 Prior cardiovascular history: March 2019 NSTEMI with proximal RCA and mid LAD PCI/stenting. September 2024 GXT no ischemia at 7 METS. 2019 TTE LVEF 55 to 60%, no valvular heart disease No documented history of dysrhythmia Patient presents to the office today with activity level > 4 METS. 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 Prior angina: Chest pain, shortness of breath, denies reoccurrence Last nitroglycerin usage: None Total DASI: 44.7 METs: 8.23 EKG in office: Normal sinus rhythm, prior septal infarct ACC/AHA guidelines: 1. Major clinical markers: -Acute coronary syndrome or [place] within 30 days: No -Decompensated heart failure: No -Significant arrhythmia: No -Severe valvular heart disease: No 2. Intermediate clinical markers -History of ischemic heart disease (prior [place], current chest pain secondary to ischemia, use of nitrates or EKG changes): Yes -Compensated/prior heart failure: No -Diabetes requiring insulin: Yes -Renal insufficiency with creatinine greater than 2: No 3. Minor clinical markers: -Age greater than or equal to 70: No -Abnormal EKG: No -Rhythm other than sinus rhythm: No -Low functional capacity: No -Prior CVA: No -Uncontrolled hypertension: No Surgery specific risk: Intermediate risk orthopedic repair According to ACC/AHA guidelines, a patient with daily activity greater than 4 METS proceeding with intermediate surgical risk procedure may proceed without additional cardiovascular testing. Also, patient has had recent favorable cardiovascular testing within the last 9 months without change in overall functional capacity. JUSTIN Revised Cardiac Risk Index: Low risk 0.9% MACE (diabetes on insulin, no prior STEMI) Concomitant medication review: Review of Systems Cardiovascular: Negative for chest pain, dyspnea on exertion, irregular heartbeat, leg swelling, near-syncope, orthopnea, palpitations, paroxysmal nocturnal dyspnea and syncope. Visit Vitals BP 120/60 (BP Location: Right arm, Patient Position: Sitting) Pulse 86 Ht 1.651 m (5' 5 ) Wt 99.8 kg (220 lb) BMI 36.61 kg/m?? Smoking Status Every Day BSA 2.14 m?? Physical Exam Vitals and nursing note reviewed. HENT: Head: Normocephalic. Cardiovascular: Rate and Rhythm: Normal rate and regular rhythm. Heart sounds: Normal heart sounds. Pulmonary: Effort: Pulmonary effort is normal. Breath sounds: Normal breath sounds. Abdominal: Palpations: Abdomen is soft. Musculoskeletal: Right lower leg: No edema. Left lower leg: No edema. Skin: General: Skin is warm and dry. Neurological: General: No focal deficit present. Mental Status: She is alert. Psychiatric: Mood and Affect: Mood normal. Behavior: Behavior normal. ALLERGIES: Surfactants Current Outpatient Medications Medication Instructions atorvastatin (LIPITOR) 40 mg, oral, Daily before breakfast clopidogrel (PLAVIX) 75 mg, oral, Daily empagliflozin (Jardiance) 25 mg 1 tablet, Daily ergocalciferol (VITAMIN D-2) 1.25 mg, Once Weekly fenofibrate (TRICOR) 145 mg, oral, Daily insulin lispro (HumaLOG) 100 unit/mL injection USE SUBCUTANEOUSLY DIRECTED. MAX DAILY DOSE OF 80UNITS PER INSULIN PUMP isosorbide mononitrate ER (IMDUR) 30 mg, oral, Daily, Do not crush or chew. lisinopril 5 mg, oral, Daily metoprolol tartrate (LOPRESSOR) 25 mg, oral, 2 times daily Mounjaro 5 mg/0.5 mL pen injector Weekly nicotine (Nicoderm CQ) 21 mg/24 hr patch 1 patch, transdermal, Every 24 hours nitroglycerin (NITROSTAT) 0.4 mg, Every 5 min PRN oxyCODONE (Oxy-IR) 5 mg immediate release capsule TAKE 1 CAPSULE BY MOUTH EVERY 8 HOURS NEEDED FOR PAIN FOR 7 DAYS pregabalin (Lyrica) 150 mg capsule 1 capsule, 3 times daily Assessment: Current every day smoker 1/2 to 1 pack per day 13 pack year history Continued every day tobacco use. Have reviewed the negative cardiovascular impact of nicotine. Continues to decline pharmacological assistance. Prior: nicoderm patches without benefit Willing to try nicoderm patches again CAD (coronary artery disease) Mar 2019 NSTEMI pRCA PCI/Ktaia 4/18mm mLAD TOBACCO WETTER PCI/Katia 2.25/33mm Feb 2020 MPI no ischemia LVEF 60% September 2024: GXT no ischemia at 7 METs Current daily activity 4 METS without recurrent symptoms Hyperlipemia Moderate intensity statin Due for labs Essential hypertension optimal in office Diabetes mellitus (Multi) Reports diagnosed at age 12 Has insulin pump On JESU/statin November 2022 HgA1c 11 BMI 36.0-36.9,adult Reviewed the merits of healthy lifestyle choices on overall cardiovascular health. Pre-operative clearance Adhering to ACC/AHA guidelines, a patient with daily activity greater than 4 METS proceeding with intermediate surgical risk procedure may proceed without additional cardiovascular testing. Patient is also had favorable cardiovascular testing within the last 7 months (GXT no ischemia at 7 METS). At this time, no prohibitive cardiovascular risk to proceed with surgical procedure. Plan: Through informed decision making process incorporating patients unique circumstances, the followingtreatment plan will be initiated: 1. Prescription drug management of cardiovascular medication for efficacy, adherence to treatment, side effect assessment and polypharmacy. Current treatment clinically warranted and to continue without modifications. 2. No prohibitive cardiovascular risk to proceed with surgical procedure. Ok to interrupt Plavix 5 days prior then resume post-op. 3. Nicoderm patches have been sent in 4. Return for follow-up; in the interim, contact the office if new symptoms arise. LAYOUT TECHNICIAN annual You need to stop smoking. Though it is not easy, more than half of all adults smokers have quit. Weencourage you to write down all the reasons you should quit smoking and set a quit date for yourself. Ask us how we can help. You may also call 6-407-GMVB-NOW for free resources and assistance. Nikki Villeda MSN, INACURRICULUM COACH, PMHNP-[facility] [place], [place] Please excuse any errors in grammar or translation related to this dictation. Voice recognition software was utilized to prepare this document. documented in this encounter Miscellaneous Notes * Assessment & Plan Note - JIMMY Willis - 04/27/2025 9:03 AM EDT Associated Problem(s): Pre-operative clearance Adhering to ACC/AHA guidelines, a patient with daily activity greater than 4 METS proceeding with intermediate surgical risk procedure may proceed without additional cardiovascular testing. Patient is also had favorable cardiovascular testing within the last 7 months (GXT no ischemia at 7 METS). At this time, no prohibitive cardiovascular risk to proceed with surgical procedure. * Assessment & Plan Note - JIMMY Willis - 04/27/2025 9:01 AM EDT Associated Problem(s): BMI 36.0-36.9,adult Reviewed the merits of healthy lifestyle choices on overall cardiovascular health. * Assessment & Plan Note - JIMMY Willis - 04/27/2025 9:01 AM EDT Associated Problem(s): Diabetes mellitus (Multi) Reports diagnosed at age 12 Has insulin pump On JESU/statin November 2022 HgA1c 11 * Assessment & Plan Note - JIMMY Willis - 04/27/2025 9:01 AM EDT Associated Problem(s): Essential hypertension optimal in office * Assessment & Plan Note - JIMMY Willis - 04/27/2025 9:01 AM EDT Associated Problem(s): Hyperlipemia Moderate intensity statin Due for labs * Assessment & Plan Note - JIMMY Willis - 04/27/2025 9:01 AM EDT Associated Problem(s): CAD (coronary artery disease) Mar 2019 NSTEMI pRCA PCI/Katia 4/18mm mLAD TOBACCO WETTER PCI/Katia 2.25/33mm Feb 2020 MPI no ischemia LVEF 60% September 2024: GXT no ischemia at 7 METs Current daily activity 4 METS without recurrent symptoms * Assessment & Plan Note - JIMMY Willis - 04/26/2025 10:13 AM EDT Associated Problem(s): Current every day smoker 1/2 to 1 pack per day 13 pack year history Continued every day tobacco use. Have reviewed the negative cardiovascular impact of nicotine. Continues to decline pharmacological assistance. Prior: nicoderm patches without benefit Willing to try nicoderm patches again documented in this encounter Plan of Treatment DateTypeDepartmentCare Team (Latest Contact Info)Uwrivuaddmw24/13/2026 11:00 AM EDTOffice Visit [facility] [address] [facility] [address] [place] [address] Nikki Villeda APRN-CNP [address] [facility] [address] [place] [address] documented as of this encounter Procedures Procedure NamePriorityDate/TimeAssociated DiagnosisCommentsECG 12-LEADRoutine 04/26/2025 9:48 AM EDT Pre-operative clearance documented in this encounter Results * ECG 12 Lead (04/26/2025 9:48 AM EDT)Specimen (Source)Anatomical Location / LateralityCollection Method / VolumeCollection TimeReceived Time Narrative CPACS - 04/27/2025 12:05 PM EDT Normal sinus rhythm, normal ECG Authorizing ProviderResult TypeResult StatusNikki Villeda SUPPORT DBA-CNPECG ORDERABLES Final ResultPerforming OrganizationAddressCity/State/ZIP CodePhone Number CPACS documented in this encounter Visit Diagnoses Diagnosis Pre-operative clearance- Primary Unspecified pre-operative examination Coronary artery disease with angina pectoris, unspecified vessel or lesion type, unspecified whether seminole or transplanted heart Mixed hyperlipidemia Essential hypertension Unspecified essential hypertension 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
--- OUTSIDE RECORDS SUMMARY | 2025-04-26 13:40 | XMS_ITS | Encounter Summary ---
Author Organization [facility] Address [address] [place] [address] Care Team Providers Care Special Educator Name Role Phone MasterMark Anthony venegas Primary Care Provider [phone] Reason for Visit * ReasonCommentsPre-op Exam Encounter Details DateTypeDepartmentCare Team (Latest Contact Info)Pcebesxlxcz58/20/2025 1:40 PM EDTOffice Visit [facility] [address] [facility] [address] [place] [id number] Christina Arnold NP [address] [place] [address] Pre-op exam (Primary Dx); Drug-induced constipation; Type 2 diabetes mellitus with diabetic polyneuropathy, with long-term current use of insulin (HCC); Current smoker; Mixed hyperlipidemia; Hypertension, unspecified type Social History Tobacco UseTypesPacks/DayYears UsedDateSmoking Tobacco: Every DayCigarettes Smokeless Tobacco: Never Tobacco Cessation:Ready to Q uit: No; Counseling Given: Yes Comments:6-10 cigs a day. Alcohol UseStandard Drinks/WeekCommentsNever0 (1 standard drink = 0.6 oz pure alcohol)Caffeine intake: more than 4 cups per dayAUDIT-CAnswerDate RecordedQ1: How often do you have a drink containing alcohol?Never11/29/2022Q2: How many drinks containing alcohol do you have on a typical day when you are drinking? Patient does not drink11/29/2022Q3: How often do you have six or more drinks on one occasion?Never11/29/2022HQ-2AnswerDate RecordedPatient Health Questionnaire-2 Qezvf540CommentsUnknownSex and Gender InformationValueDate RecordedSex Assigned at BirthNot on fileLegal SexFemale 09/19/2022 7:01 PM EDTGender IdentityNot on fileSexual OrientationNot on file documented as of this encounter Last Filed Vital Signs Vital SignReadingTime TakenCommentsBlood Clpxxdtn210/7404/26/2025 1:56 PM EDT Dkuyo889404/26/2025 1:56 PM HYNYlkiekkuano11.9 ??C (98.4 ??F)04/26/2025 1:56 PM EDTRespiratory Rate--Oxygen Pkfujbcmuf87%04/26/2025 1:56 PM EDTInhaled Oxygen Concentration--Ecxslf391 kg (224 lb)04/26/2025 1:56 PM GFGEoyuyl590.8 cm (5' 4.5 )04/26/2025 1:56 PM EDTBody Mass Index37.8604/26/2025 1:56 PM EDTdocumented in this encounter Functional Status * Over the past 2 weeks, how often have you been bothered by any of the following problems?QuestionAnswerDate of AssessmentAuthorLittle interest or pleasure in doing thingsNot at all04/26/2025 2:06 PM EDChelita Springer LPN Feeling down, depressed, or hopelessNot at all04/26/2025 2:06 PM EDChelita Springer LPNPatient Health Questionnaire-2 Ynjbu711 2:06 PM Chelita Jennings LPN documented as of this encounter Progress Notes * Christina Arnold NP - 04/26/2025 1:40 PM EDT SUBJECTIVE: Anahi Dinero is a 39 y.o. female presents with chief complaint of Pre-op Exam Pt here with for surgical clearance. Has surgery scheduled with Dr Rivas for leftknee surgery. Left knee cap is broken in 3 places from a fall at work.(Workers comp case through [facility]) Had labs and EKG at [facility] on Saturday, states everything was okay aside from her hgba1c being 12, seeing Dr Rivera tomorrow for this and surgical clearance.. Saw DARK ROOM ATTENDANT at cardiology office this morning for clearance, and was cleared. Was also sent rx for smoking cessation. Pt does note some harder stools/constipation since start of pain meds. Needs surgical clearance. Review of Systems: Review of Systems Respiratory: Negative for shortness of breath. Cardiovascular: Negative for chest pain and palpitations. All other systems reviewed and are negative. Current Medications: Medications Ordered Prior to Encounter[1] I have reviewed and reconciled the history and medication list with the patient today. Problem List: Problem List[2] Past Medical History: Medical History[3] Family History: Family History[4] Allergies: Allergies[5] Surgical History: Surgical History[6] Social History: Social Drivers of CloudSplit Tobacco Use: High Risk (04/26/2025) Patient History Smoking Tobacco Use: Every Day Smokeless Tobacco Use: Never Passive Exposure: Not on file Alcohol Use: Not At Risk (11/29/2022) AUDIT-C Frequency of Alcohol Consumption: Never Average Number of Drinks: Patient does not drink Frequency of Binge Drinking: Never Financial Resource Strain: Not on file Food Insecurity: Not on file Transportation Needs: Not on file Physical Activity: Not on file Stress: Not on file Social Connections: Not on file Intimate Partner Violence: Not on file Depression: Not at risk (04/26/2025) PHQ-2 PHQ-2 Score: 0 Housing Stability: Not on file Health Literacy: Not on file OBJECTIVE: Visit Vitals BP 116/74 Pulse 64 Temp 98.4 ??F Ht 5' 4.5 Wt 224 lb SpO2 99% BMI 37.86 kg/m?? Smoking Status Every Day BSA 2.15 m?? Physical Exam Constitutional: Appearance: Normal appearance. HENT: Head: Normocephalic and atraumatic. Right Ear: Tympanic membrane normal. Left Ear: Tympanic membrane normal. Nose: Nose normal. Mouth/Throat: Mouth: Mucous membranes are moist. Pharynx: Oropharynx is clear. Eyes: Extraocular Movements: Extraocular movements intact. Neck: Vascular: No carotid bruit. Cardiovascular: Rate and Rhythm: Normal rate and regular rhythm. Heart sounds: Normal heart sounds. Pulmonary: Effort: Pulmonary effort is normal. Breath sounds: Normal breath sounds. No wheezing, rhonchi or rales. Abdominal: General: Bowel sounds are normal. Palpations: Abdomen is soft. Musculoskeletal: Cervical back: Neck supple. Lymphadenopathy: Cervical: No cervical adenopathy. Skin: General: Skin is warm and dry. Neurological: General: No focal deficit present. Mental Status: She is alert and oriented to person, place, and time. Psychiatric: Mood and Affect: Mood normal. Behavior: Behavior normal. Judgment: Judgment normal. No results found for this or any previous visit (from the past 4 weeks). ASSESSMENT AND PLAN: Assessment/Plan Diagnoses and all orders for this visit: Pre-op exam Drug-induced constipation - docusate sodium (Colace) 100 MG capsule; Take 1 capsule (100 mg) by mouth 2 (two) times a day as needed for constipation for up to 10 days Type 2 diabetes mellitus with diabetic polyneuropathy, with long-term current use of insulin ([facility]) Current smoker Mixed hyperlipidemia Hypertension, unspecified type The patient was interviewed and examined. The patient's medical history and medications were reviewed. Patient is to follow guidance of surgical team regarding all medications. Patient is active and has no chest pain or dyspnea. All available PAT was reviewed. Pt has been cleared by cardiology and has fu with endo in the morning for clearance. Advised on smoking cessation. The patient is clearedfor surgery. No follow-ups on file. [1] Current Outpatient Medications on File Prior to Visit Medication Sig Dispense Refill atorvastatin (Lipitor) 40 MG tablet Take 40 mg by mouth in the morning. cetirizine (ZyrTEC) 10 MG tablet Take 1 tablet (10 mg) by mouth Daily 90 tablet 3 clopidogrel (Plavix) 75 MG tablet Take 75 mg by mouth in the morning. ergocalciferol (Vitamin D2) 1.25 MG (40862 UT) capsule TAKE 1 CAPSULE BY MOUTH ONCE A WEEK FOR 90 DAYS 12 capsule 3 fenofibrate (Tricor) 145 MG tablet Take 145 mg by mouth in the morning. Insulin Lispro 100 UNIT/ML solution DIRECTED 100 UNITS TOTAL A DAY VIA INSULIN PUMP 90 isosorbide mononitrate ER (Imdur) 30 MG 24 hr tablet Jardiance 25 MG 1 (one) time each day at the same time. lisinopril 5 MG tablet Take 5 mg by mouth in the morning. metoprolol tartrate (Lopressor) 25 MG tablet Take 25 mg by mouth. (Patient taking differently: Take25 mg by mouth in the morning and 25 mg before bedtime.) Mounjaro 5 MG/0.5ML solution auto-injector nitroglycerin (Nitrostat) 0.4 MG SL tablet TAKE 1 TAB UNDER TONGUE EVERY 5 MINS UP TO 3 DOSES NEEDED FOR CHEST PAIN CALL 911 IF PAIN PERSIST oxyCODONE (Oxy-IR) 5 MG immediate release capsule 5 mg every 8 (eight) hours if needed pregabalin (Lyrica) 150 MG capsule Take 1 capsule (150 mg) by mouth in the morning and 1 capsule (150 mg) in the evening and 1 capsule (150 mg) before bedtime. 90 capsule 0 [DISCONTINUED] fluticasone (Flonase) 50 MCG/ACT nasal spray Twice daily [DISCONTINUED] loratadine (Claritin) 10 MG tablet Daily [DISCONTINUED] Continuous Blood Gluc Sensor (Dexcom G6 Sensor) misc USE DIRECTED CHANGE EVERY 10DAYS (NEEDS PA) [DISCONTINUED] Continuous Blood Gluc Transmit (Dexcom G6 transmitter) misc USE DIRECTED AND CHANGE EVERY 90 DAYS (NEEDS PA) [DISCONTINUED] Continuous Glucose School Physical Therapist (Dexcom G7 School Physical Therapist) device .MEDSUPPLY [DISCONTINUED] Continuous Glucose Sensor (Dexcom G7 15 Day Sensor) misc [DISCONTINUED] Ozempic, 2 MG/DOSE, 8 MG/3ML solution pen-injector [DISCONTINUED] pregabalin (Lyrica) 150 MG capsule Take 1 capsule (150 mg) by mouth in the morning and 1 capsule (150 mg) in the evening and 1 capsule (150 mg) before bedtime. 90 capsule 0 [DISCONTINUED] pseudoephedrine (Sudafed) 60 MG tablet Take 1 tablet (60 mg) by mouth every 6 (six) hours if needed for congestion 30 tablet 0 No current facility-administered medications on file prior to visit. [2] Patient Active Problem List Diagnosis Acute pain of left shoulder Anemia Coronary artery disease Current smoker Depression with anxiety Diabetic peripheral neuropathy (HCC) Hyperglycemia due to type 2 diabetes mellitus (HCC) Insomnia Iron deficiency anemia Leukocytosis Major depressive disorder, single episode, moderate (HCC) Mixed hyperlipidemia Neuropathy of both feet Type 2 diabetes mellitus with other diabetic neurological complication (HCC) Vitamin D insufficiency Trichomoniasis Adhesive capsulitis of left shoulder Impingement syndrome of shoulder region, left Acquired hammer toe deformity of lesser toe of left foot Acquired hammer toe deformity of lesser toe of right foot Adenomyosis Excessive and frequent menstruation Metrorrhagia Menorrhagia with irregular cycle 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 MRSA (methicillin resistant Staphylococcus aureus) infection Skin ulcer of left great toe, limited to breakdown of skin (HCC) Thrombocytosis Hypertension [3] Past Medical History: Diagnosis Date Abscess Mulitple abscesses Acute coronary syndrome (HCC) Acute non-ST segment elevation myocardial infarction (HCC) 03/[address] Segment Elevation Myocardial Infarction Back pain Chest pain 03/2019 Current every day smoker Daily smoker Dental caries poor oral hygene w/ dental caries Depression Diabetes (HCC) Dog bite 2017 GERD (gastroesophageal reflux disease) Heart disease Hidradenitis axillaris History of migraine headaches Hypertension Morbid obesity (CMS-HCC) Neuropathy Obesity Ovarian cyst Pneumonia Poor oral hygiene w/ dental caries SOB (shortness of breath) STD (sexually transmitted disease) Urogenital trichomoniasis [4] Family History Problem Relation Name Age of Onset Diabetes Mother Crohn's disease Mother Hyperlipidemia Mother Endometriosis Mother Hypertension Mother Heart disease Mother Other (Other) Mother Wagners disease Alcohol abuse Father No Known Problems Sister No Known Problems Brother No Known Problems Daughter No Known Problems Son Colon cancer Father's Brother [5] Allergies Allergen Reactions Liraglutide Unknown Metformin Unknown Sulfamethoxazole Other Reaction(s): Nausea, vomiting Sulfamethoxazole-Trimethoprim Unknown and GI intolerance Nausea and vomiting Trimethoprim GI intolerance [6] Past Surgical History: Procedure Laterality Date FOOT SURGERY 03/2024 HEART CATH 03/2019 with 2 stents [place] EXCISION HIDRADENITIS AXILLARY COMPLEX REPAIR Left 12/2019 Excision axillary hidradenitis VAGINAL DELIVERY 2008 10 hr labor VAGINAL DELIVERY 2009 documented in this encounter Plan of Treatment DateTypeDepartmentCare Team (Latest Contact Info)Onaidajgpjk39/20/2026 9:40 AM ESTOffice Visit [facility] [address] [place] [address] Evy Swann MD [address] [place] [address] documented as of this encounter Visit Diagnoses Diagnosis Pre-op exam- Primary Drug-induced constipation Other constipation Type 2 diabetes mellitus with diabetic polyneuropathy, with long-term current use of insulin (HCC) Current smoker Mixed hyperlipidemia Hypertension, unspecified type documented in this encounter Care Teams Team MemberRelationshipSpecialtyStart DateEnd Date Mark Anthony Carvajal DO [address] [facility] [address] [place] [address] PCP - GeneralFamily Medicine11/22/22documented as of this encounter
--- OUTSIDE RECORDS SUMMARY | 2025-04-27 09:10 | XMS_ITS | Encounter Summary ---
Author Organization [facility] Address [address] [place] [place] [address] Care Team Providers Care Slitter Scorer Name Role Phone Mark Anthony Carvajal Primary Care Provider [phone] Reason for Visit * ReasonCommentsDiabetesNEW NO REF A1C LAST WEEK 12.0% Encounter Details DateTypeDepartmentCare Team (Latest Contact Info)Yzzzyzgesoz56/21/2025 9:10 AM EDTOffice Visit [facility] [address] [place] [address] Evy Swann MD [address] [place] [address] Type 2 diabetes mellitus with hyperglycemia, with long-term current use of insulin (HCC) (Primary Dx); Vitamin D insufficiency; Primary hypertension; Encounter for dietary consultation; Class 2 severe obesity due to excess calories with serious comorbidity and body mass index (BMI) of36.0 to 36.9 in adult Social History Tobacco UseTypesPacks/DayYears UsedDateSmoking Tobacco: Every DayCigarettes Smokeless Tobacco: Never Comments:6-10 cigs a day. Alcohol UseStandard Drinks/WeekCommentsNever0 (1 standard drink = 0.6 oz pure alcohol)Caffeine intake: more than 4 cups per dayAUDIT-CAnswerDate RecordedQ1: How often do you have a drink containing alcohol?Never11/29/2022Q2: How many drinks containing alcohol do you have on a typical day when you are drinking? Patient does not drink11/29/2022Q3: How often do you have six or more drinks on one occasion?Never3PHQ-2AnswerDate RecordedPatient Health Questionnaire-2 Emdrr856CommentsUnknownSex and Gender InformationValueDate RecordedSex Assigned at BirthNot on fileLegal SexFemale 09/19/2022 7:01 PM EDTGender IdentityNot on fileSexual OrientationNot on file documented as of this encounter Last Filed Vital Signs Vital SignReadingTime TakenCommentsBlood Hzrmdkpy411/7204/27/2025 9:07 AM EDT Bjiie999004/27/2025 9:07 AM EDTTemperature--Respiratory Yjqg0353 9:07 AM EDTOxygen Tlwzawbhsd78%04/27/2025 9:07 AM EDTInhaled Oxygen Concentration-- Uyxtbr482 kg (221 lb)04/27/2025 9:07 AM ZKDAavyke342.1 cm (5' 5 )04/27/2025 9:07 AM EDTBody Mass Index36.7804/27/2025 9:07 AM EDTdocumented in this encounter Progress Notes * Evy Swann MD - 04/27/2025 9:10 AM EDT Anahi Dinero is a 39 y.o. female No ref. provider found presents with chief complaint of Diabetes (NEW NO REF A1C LAST WEEK 12.0%) HPI: 04/2025 History of Present Illness The patient is a 39-year-old female who presents as a new patient for uncontrolled diabetes. She has an A1c of 12 and was previously on an insulin pump with long-acting insulin. Currently, sheadministers 5 to 12 units of insulin with every meal and takes Jardiance. She is uncertain whether she has type 1 or type 2 diabetes but is interested in using an insulin pump. She was discharged from the diabetes clinic due to a missed appointment. Results Laboratory Studies A1c is 12. SUBJECTIVE: MEDICATIONS: Current Outpatient Medications Medication Instructions atorvastatin (LIPITOR) 40 mg, Every morning cetirizine (ZYRTEC) 10 mg, Oral, Daily clopidogrel (PLAVIX) 75 mg, Daily Continuous Glucose Sensor (Dexcom G7 Sensor) misc 1 Bar, Does not apply, Every 10 days docusate sodium (COLACE) 100 mg, Oral, 2 times daily PRN empagliflozin (JARDIANCE) 25 mg, Oral, Daily ergocalciferol (VITAMIN D2) 1.25 mg, Oral, Weekly fenofibrate (TRICOR) 145 mg, Daily RT Insulin Lispro 100 UNIT/ML solution isosorbide mononitrate ER (Imdur) 30 MG 24 hr tablet Lantus SoloStar 25 Units, Subcutaneous, Nightly lisinopril 5 mg, Daily metoprolol tartrate (LOPRESSOR) 25 mg Mounjaro 5 MG/0.5ML solution auto-injector nitroglycerin (Nitrostat) 0.4 MG SL tablet oxyCODONE (OXY-IR) 5 mg, Every 8 hours PRN pregabalin (LYRICA) 150 mg, Oral, 3 times daily ALLERGIES: Allergies[1] Medical History[2] Surgical History[3] REVIEW OF SYMPTOMS: 14 POINT OF SYSTEM REVIEWED AND NEGATIVE OBJECTIVE: Constitutional: Afebrile @ home; no weakness or night sweats SKIN: No change in skin color; no itching, rash or lesions; no hair loss; HEENT: No HAs or injury; no dizziness; No difficulty with vision; no eye pain, discharge or lesions; no hearing loss or difficulty; no nasal discharge, NECK: No pain, limitation of motion, lumps or swollen glands RESP: No cough, wheezing or difficulty breathing. No CP with breathing; CARDIO: No CP , SOB or fatigue, No edema, palpitations or dyspnea with exertion GI: No N/V/D or abd. pain; good appetite with no recent change. No heart burn, liver or gallbladderdisease; no rectal bleeding or pain : No urinary pain , frequency or odor. MUSCULOSKELETAL: No muscle pain or cramps; no extremity weakness.No joint pain, stiffness, swellingor limitation of movement NEUROLOGY: No H/O seizures, stroke or fainting. No weakness, tremors. Hematology: No bleeding problems or excessive bruising ENDOCRINE: No increase in hunger, thirst or urination; admits compliance to medical management plan Feet: numbness tingling , ulcers or skin break Lab Results Component Value Date HGBA1C 11.5 01/13/2025 HGBA1C 7.7 09/25/2023 HGBA1C 8.6 06/17/2023 Lab Results Component Value Date GLU 383 04/27/2025 GLU 353 (H) 01/15/2025 GLU 201 (H) 03/06/2024 08/05/2024 2:06 PM 08/13/2024 2:41 PM 09/01/2024 2:21 PM 01/11/2025 9:44 AM 03/31/2025 9:02 AM 04/26/2025 1:56 PM 04/27/2025 9:07 AM Vitals BMI 38.19 kg/m2 37.69 kg/m2 38.53 kg/m2 37.35 kg/m2 37.86 kg/m2 36.78 kg/m2 BSA (m2) 2.17 m2 2.14 m2 2.17 m2 2.13 m2 2.15 m2 2.14 m2 Systolic 122 116 126 128 118 116 110 Diastolic 60 62 74 68 58 74 72 Heart Rate 77 65 70 72 100 64 79 SpO2 98 % 98 % 98 % 97 % 98 % 99 % 99 % Temp 96.8 ??F 97.8 ??F 98.3 ??F 98.2 ??F 97.8 ??F 98.4 ??F Resp 18 Height (in) 5' 4.5 5' 4.5 5' 4.5 5' 4.5 5' 4.5 5' 5 Weight (lb) 226 223 228 221 224 221 Visit Report Report Report Report Report Report Report Report ASSESSMENT AND PLAN: Assessment/Plan Diagnoses and all orders for this visit: Type 2 diabetes mellitus with hyperglycemia, with long-term current use of insulin ([facility]) - POCT glucose manually resulted - insulin glargine (Lantus SoloStar) 100 UNIT/ML pen; Inject 25 Units under the skin at bedtime - Continuous Glucose Sensor (Dexcom G7 Sensor) misc; 1 Bar Every 10 (ten) days - empagliflozin (Jardiance) 25 MG; Take 1 tablet (25 mg) by mouth Daily - C-peptide; Future - Vitamin D 25 hydroxy Total; Future - Microalbumin / creatinine urine ratio; Future - Lipid panel; Future - Renal function panel; Future Vitamin D insufficiency Primary hypertension Encounter for dietary consultation Class 2 severe obesity due to excess calories with serious comorbidity and body mass index (BMI) of36.0 to 36.9 in adult Diet and exercise reviewed with the patient Assessment & Plan 1. Uncontrolled diabetes: - Uncontrolled diabetes with an A1c of 12. Previously on an insulin pump with long-acting insulin, currently using 5 to 12 units of insulin per meal and Jardiance. - Restarting basal insulin with Lantus 25 units. Continuing short-acting insulin at 8/10/12 units plus correction. Continuing Jardiance 25 mg. - Labs including C-peptide will be checked. An insulin pump, OmniPod, will be initiated. A sample for Dexcom and reader has been provided. Follow-up: Labs including C-peptide will be checked. Follow-up in 3 months. Follow up in about 3 months (around 07/28/2025). [1] Allergies Allergen Reactions Liraglutide Unknown Metformin Unknown Sulfamethoxazole Other Reaction(s): Nausea, vomiting Sulfamethoxazole-Trimethoprim Unknown and GI intolerance Nausea and vomiting Trimethoprim GI intolerance [2] Past Medical History: Diagnosis Date Abscess Mulitple [...] breath) STD (sexually transmitted disease) Urogenital trichomoniasis [3] Past Surgical History: Procedure Laterality Date FOOT SURGERY 03/2024 HEART CATH 03/2019 with 2 stents [place] EXCISION HIDRADENITIS AXILLARY COMPLEX REPAIR Left 12/2019 Excision axillary hidradenitis VAGINAL DELIVERY 2008 10 hr labor VAGINAL DELIVERY 2009 documented in this encounter Plan of Treatment DateTypeDepartmentCare Team (Latest Contact Info)Sgfxjygphsf92/20/2026 9:40 AM ESTOffice Visit [facility] [address] [place] [address] Evy Swann MD [address] [place] [address] NameTypePriorityAssociated DiagnosesOrder ScheduleVitamin D 25 hydroxy TotalLab Routine Type 2 diabetes mellitus with hyperglycemia, with long-term current use of insulin (HCC) Expected: 04/27/2025 (Approximate), Expires: 04/27/2026Lipid panelLabRoutine Type 2 diabetes mellitus with hyperglycemia, with long-term current use of insulin (HCC) Expected: 04/27/2025 (Approximate), Expires: 04/27/2026Renal function panelLab Routine Type 2 diabetes mellitus with hyperglycemia, with long-term current use of insulin (HCC) Expected: 04/27/2025 (Approximate), Expires: 04/27/2026documented as of this encounter Procedures Procedure NamePriorityDate/TimeAssociated DiagnosisCommentsC-PEPTIDERoutine 05/06/2025 9:07 AM EDT Type 2 diabetes mellitus with hyperglycemia, with long-term current use of insulin ([facility]) MICROALBUMIN / CREATININE URINE YBXTOJbtiiqj80/29/2025 10:04 AM EDT Type 2 diabetes mellitus with hyperglycemia, with long-term current use of insulin ([facility]) POCT ZMJVVHKVuqhihx02/21/2025 9:05 AM EDT Type 2 diabetes mellitus with hyperglycemia, with long-term current use of insulin ([facility]) documented in this encounter Results * C-peptide (05/06/2025 9:07 AM EDT)Specimen (Source)Anatomical Location / LateralityCollection Method / VolumeCollection TimeReceived TimeBloodVenous blood specimen / Unknown Narrative Authorizing ProviderResult TypeResult StatusH[facility] BLOOD ORDERABLESFinal ResultPerforming OrganizationAddressCity/State/ZIP CodePhone Number QUEST * Microalbumin / creatinine urine ratio (05/05/2025 10:04 AM EDT)Specimen (Source)Anatomical Location / LateralityCollection Method / VolumeCollection TimeReceived TimeUrineUrine specimen obtained by clean catch procedure / Unknown Narrative Authorizing ProviderResult TypeResult StatusVa Hospitalalen [facility] URINE ORDERABLESFinal ResultPerforming OrganizationAddressCity/State/ZIP CodePhone Number [facility]ST * POCT glucose manually resulted (04/27/2025 9:05 AM EDT)ComponentValueRef Range Test MethodAnalysis TimePerformed AtPathologist SignatureGlucose Blood, NEK456 mg/dLSpecimen (Source)Anatomical Location / LateralityCollection Method / VolumeCollection TimeReceived TimeBloodCapillary blood specimen / Unknown 04/27/2025 9:05 AM EDT Narrative Authorizing ProviderResult TypeResult StatusEvy [place] OF CARE TEST ENTER/EDIT ORDERABLESFinal Result documented in this encounter Visit Diagnoses Diagnosis Type 2 diabetes mellitus with hyperglycemia, with long-term current use of insulin (HCC)- Primary Vitamin D insufficiency Primary hypertension Unspecified essential hypertension Encounter for dietary consultation Class 2 severe obesity due to excess calories with serious comorbidity and body mass index (BMI) of36.0 to 36.9 in adult documented in this encounter Care Teams Team MemberRelationshipSpecialtyStart DateEnd Date Mark Anthony Carvajal DO [address] [facility] [address] [place] [address] PCP - GeneralFamily Medicine11/22/22documented as of this encounter
--- OUTSIDE RECORDS SUMMARY | 2025-05-05 20:27 | XMS_ITS | Continuity of Care Document ---
Author Organization [facility] Address [address] [place] [address] Phone Care Team Providers Care Interactive Graphic Designer Name Role Phone Catalina Christina LAC[employer]ER [employer] PRESS OPERATOR-C Primary Care Provider [phone] Ahsan Mata DO Emergency Provider Raul Rivas DO Attending Provider Evy Swann MD Other Provider [phone] Care Teams Patient Care Team Team Status: Active Member Role/Relationship Status Dates Christina Arnold , LACQUER PIN PRESS OPERATOR-C Primary Care Provider Active Visit Care Team Team Status: Inactive Member Role/Relationship Status Dates Christina Arnold LACQUER [employer] PRESS OPERATOR-C Primary Care Provider Active S tart: March 29, 2025 End: March 29, 2025Ahsan Mata DOEmergency ProviderActiveStart: March 29, 2025 End: March 29, 2025 Visit Care Team Team Status: Inactive Member Role/Relationship Status Dates Christina Arnold LACQUER PIN PRESS OPERATOR-C Primary Care Provider Active S tart: April 22, 2025 End: April 22, 2025Koko Reis ProviderActiveStart: April 22, 2025 End: April 22, 2025 Patient Care Team Team Status: Inactive Member Role/Relationship Status Dates Christina Arnold LACQUER PIN PRESS OPERATOR-C Primary Care Provider Active S tart: May 05, 2025 End: May 05, 2025Koko Reis ProviderActiveStart: May 05, 2025 End: May 05behzad Swann MDOther ProviderActiveStart: May 05, 2025 End: May 05, 2025 Chief Complaint and Reason for Visit Chief Complaint Admit Date rt side arm/leg numbness, tingling Septe mber 2024 9:14am [facility] DOI 04/21/25 L PATELLA FX WX April 22, 2025 10:03am E11.9, E11.65,Z79.4 May 05, 2025 8 :21am Reason for Visit Admit Date Fracture of left patella April 22, 025 10:03am Allergies, Adverse Reactions, Alerts Allergen [...] of Observa tion Never smoked tobacco (finding) July 08, 2001 April 22, 2025 4:55pm Observation Status Observation Response Date of Response Legal Sex Female (finding) Sex Assigned At BirthFemaleMay 1985 Family History Relationship Condition Age at Onset Recorded Date/T shemar mother Diabetes mellitus Unknown Coronary artery diseaseUnknownCrohn's diseaseUnknownWagner syndromeUnknown grandparentDiabetes mellitusUnknowngrandparentDiabetes mellitusUnknownmother Heart diseaseUnknownHypertensionUnknownDiabetes mellitusUnknown Problems Active Problems Problem Diagnosis/Recorded Date Onset Date Stat us Status post open reduction a nd internal fixation (ORIF) of fracture April 28, 2025 7:49am Unknown Active Insulin pump in place September 24, 2023 3:31pm Unknown Active Fracture of left patella April 22, 2025 11:08am Un known Active Type 2 diabetes mellitus wit h hyperglycemia March 20, 2019 3:19pm Unknown Active Stented coronary artery January 27, 2020 3:47pm Unknown Active Uterine fibroid January 11, 2019 10:05pm Unknown Ac tive Dietary counseling and surveillance March 19th, 2024 3 :32pm Unknown Active Pelvic pain January 11, 2019 10:05pm Unknown Activ e Coronary artery disease March 24, 2019 2:00pm Un known Active Abscess November 08, 2018 10:36pm Unknown Active Abscess June 17, 2019 5:09pm Unknown A ctive Anemia May 19, 2019 1:36am Unknown A ctive Unstable angina pectoris March 20, 2019 1:37am U nknown Active Chest wall pain April 25, 2023 6:38pm Unknown Active Dysmenorrhea September 30, 2019 1:15am Unknown Acti ve Hyperlipidemia May 05, 2019 12:43pm Unknown Active Hypoglycemia September 25, 2023 12:24pm Unknown Act isiah Acute coronary syndrome March 21, 2019 2:17pm Un known Active Troponin level elevated March 20, 2019 9:49am Un known Active Tobacco abuse January 27, 2020 3:47pm Unknown Acti ve Tooth ache November 19, 2021 4:01pm Unknown Active BMI 38.0-38.9,adult January 13, 2025 9:32am Unknown Active Insulin pump titration September 25, 2023 12:24pm Unknow n Active Family history of early CAD March 20, 2019 2:57a m Unknown Active Poorly controlled diabetes mellitus January 11, 2019 10: 05pm Unknown Active Cyst of left ovary January 11, 2019 10:05pm Unknown Active Chest pain March 20, 2019 9:49am Unknown Active Hypertension December 21, 2019 2:45pm Unknown Activ e Obesity January 27, 2020 3:47pm Unknown Activ e Inactive/Resolved Problems Problem Diagnosis/Recorded Date Onset Date Stat us Acute flank pain December 02, 2024 3:42pm Unknown Re solved Acute lumbar radiculopathy March 29, 2025 1:30pm Unknown Resolved Acute chest wall pain April 25, 2023 6:39pm Unknow n Resolved Serous otitis media August 29, 2024 5:59am Unknown Resolved Paresthesia March 29, 2025 1:30pm Unknown Resolved Diabetes mellitus January 16, 2024 5:47am Unknown Resolved Cervical radiculopathy March 29, 2025 1:30pm Unk nown Resolved Anemia December 02, 2024 3:42pm Unknown Resolv ed Dental caries May 29, 2024 10:50pm Unknown Resolved Diarrhea April 13, 2023 2:48am Unknown Res olved Hyperglycemia March 29, 2025 1:30pm Unknown Resolved Congested nose August 29, 2024 5:59am Unknown Resolved BMI 37.0-37.9, adult September 25, 2023 12:24pm Unknown Resolved Nausea & vomiting April 13, 2023 2:48am Unknown Resolved Abdominal pain April 13, 2023 2:48am Unknown R esolved Medications Medication Status Dose Units Route Directions Qty Days Refills S tart Date Stop Date End Date Reason(s) Instructions Adherence Empagliflozin 25 mg tablet Discontinued 25 MG PO Daily 90 3July 2023 10:39amJuly 2024 8:08amType 2 diabetes mellitus with hyperglycemia Type 2 diabetes mellitus with hyperglycemia dmInsulin Aspart (Niacinamide) (Fiasp U-100 Insulin) 100 unit/mL solution Pfifflybvinv5WSNLSQFvv as Zqmbayqe656Xxsxah 2023 12:00amSeptember 2023 12:55pmType 2 diabetes mellitus with hyperglycemia Type 2 diabetes mellitus with qiimiuxdwperk13 UNITS IN INSULIN PUMP DAILYInsulin Aspart (Niacinamide) (Fiasp U-100 Insulin) 100 unit/mL solutionDiscontinued0 SUBCUTUse as Wzgtebmh458Wcycuohiq 2023 12:54pmJuly 2024 7:58amType 2 diabetes mellitus with hyperglycemia Type 2 diabetes mellitus with zextpygrlhbjn10 UNITS IN INSULIN PUMP DAILYBlood- Glucose Sensor (Dexcom G6 Sensor) deviceDiscontinued0.Uqijr54Rezbtib 2023 12:00amJuly 2024 7:45amUse to monitor BG, Change Every 10 DaysBlood-Glucose Transmitter (Dexcom G6 Transmitter) deviceDiscontinued0.Pggwg61Cxkpoyw 2023 12:00amJuly 2024 7:45amType 2 diabetes mellitus with hyperglycemia Type 2 diabetes mellitus with hyperglycemiause with Dexcom G6 Sensor, change every 90 daysOxycodone 5 mg kfieraZynpjt9KCEBY9F as needed for Tcel4299Tslfyeg 2024Status post open reduction and internal fixation (ORIF) of fracture Other specified postprocedural states Personal history of (healed) traumatic fractureokay to fill 05/05/25 to be used post op 05/06/25UnknownFerrous Sulfate 325 mg (65 mg iron) tablet Mkrcjbbtlnkr745TPNMVnixpCpm 2017 12:rc2018 11:18pm Ergocalciferol (Vitamin D2) 50,000 unit xijdmpfAoubmxlmatcu4UZDLOQhsfnOrp 26th, 2018 12:rch 2018 11:18pmMetformin 500 mg tablet extended release 24 oxCgkvzgttemgk0138WPWJSwtup dailyNovember 30, 2017 12:00amMarc2019 12:12am Naproxen 500 mg muntigDdvmdwinzhbt4RDQRRM9Y as needed for PainNovember 30, 2017 12:Jan2018 10:11amInsulin Aspart U-100 100 unit/mL insulin pen Rwxcljqxmrpn2DONUKMGGJTIwmlyx meals and at bedtime Protocol: *CARB COVERAGE 1:1*GIVE 1 UNIT OF ASPART FOR EVERY 1 GM CHO EATEN AT MEALSNovember 30, 2017 12:00amMay 05, 2019 12:35pmPlease contact the information source for Protocol details.Metformin 750 mg tablet extended release 24 hr DiscontinuedNovember 30, 2017 12:2017 12:46amDuloxetine 60 mg capsule,delayed release(DR/EC)Heoxmhsypbxz41ZNFDZztkrRee 26th, 2018 12:00am May 05, 2019 12:35pmInsulin Glargine (Basaglar Kwikpen U-100 Insulin) 100 unit/mL (3 mL) insulin mpjUtnvzyuryjzc0LDXRXCRKGCKhphww meals and at bedtime Protocol: *CARB COVERAGE 1:1*GIVE 1 UNIT OF ASPART FOR EVERY 1 GM CHO EATEN AT MEALSNovember 30, 2017 12:rc2018 11:19pmPlease contact the information source for Protocol details.Alogliptin 25 mg hnemacIbrqcpndhhlr20LQIRSdsjnNmp 26th, 2018 12:rch 2018 11:18pmCanagliflozin (Invokana) 300 mg tablet Khxfverihqii210AIFCFuhyaWuv 26th, 2018 12:rch 2018 11:18pm Azithromycin (Zithromax Z-Andrea) 250 mg hemrfzLodjoarrsjwl448ZIKTSstpu42Ttw 26th, 2018 12:January 2018 10:32lf652AA PO DAY ONE, 250MG PO DAYS 2-5 Benzonatate (Tessalon Perles) 100 mg ixucmbgYmtxaluxxmve312PMEOS6G as needed for mtgnx734Zti 2017 12:00amJanuary 2018 10:11amAlbuterol Sulfate 90 mcg/actuation HFA aerosol berngcsCqmermchcahf6VOJYDFHQDIOUHU6B as needed for shortness of breath or uaxmtprz53Pdi 2017 12:00amMarch 2018 11:18pm administer with spacerDoxycycline Hyclate 100 mg yofqykfAqdkiaovwttn245GXSPPfylk ozdmd31384Nmnaazcm 2018 1:00amMarch 2018 11:18pmHydrocodone- Acetaminophen ([place]) 5-325 mg evwgbzKhxosgaudxgr4GSDQPO6N as needed for tvbo018 0February 2018February 2018 1:00amFebruary 2018 1:03am Cutaneous abscess, unspecifiedHydrocodone-Acetaminophen ([place]) 5-325 mg tablet Nxagpqvjrksk0TLFNRP0N362Uph 2018July 2018 6:52pmCutaneous abscess, unspecifiedSulfamethoxazole-Trimethoprim (Bactrim Ds) 800-160 mg tablet Milewbotpgon8PSYEFBnvbc pdhzx32550Cha 2018 12:00amJuly 2018 6:52pm Insulin Glargine (Lantus U-100 Insulin) 100 unit/mL WkvvrxzdQympgzbkuwsc30VPTQ SUBCUTDaily at bedtimeJuly 2018 12:00amOctober 2018 12:35pmIbuprofen 800 mg iyplyxTasaibpypolz760KSJRUedrf times daily as needed for armh653Prjj 2018 12:00amOctober 2018 12:35pmNitroglycerin 0.3 mg/hr patch 24 hour Chjeekqkrwij1EEEMGSDSWPUCAZHYnref as needed for Chest PainOctober 2018 12:00amMarch 2023 11:44amapply patch for 12-14 hours daily then remove Atorvastatin 40 mg iojrseKqikdnloztrv27AJQIWuybu morningOctober 2018 12:37pmMay 2024 3:40pmhyperlpidemiaInsulin Lispro (Humalog U-100 Insulin) 100 unit/mL QjlxudqcCbefjkaoouoy3YDXYDVQGLJKx DirectedOcteastern state hospital 2018 12:00am September 30, 2019 12:12amFerrous Sulfate 325 mg (65 mg iron) tabletDiscontinued 325MGPOTwice wtyty555Oiuqnyvx 2018 1:00amMah 2019 12:12am Ondansetron Hcl 4 mg jusjuvSfzcuaadhwkb6QNHDU0U as needed for nausea and xryfakaw1114[place]ie 2022 12:00amSeptember 2024 10:42amLoperamide (Imodium A-D) 2 mg bmztzsgApbumphbkflc8LYETK0I as needed for loose rjggy536 April 13, 2023 12:00amMarch 2023 11:43amChlorhexidine Gluconate (Peridex) 0.12 % lcjzuupyzXtqtruhvtamm16JFCUKMBWUnbub8196Cgjwwvcn 2023 1:00amMay 2024 3:40pmHydrocodone-Acetaminophen 5-325 mg tabletDiscontinued 1TABPOThree times daily as needed for teru558Idvpefbv 2023May 2024 3:40pmDental caries Dental caries, unspecifiedPenicillin V Potassium 500 mg bdllrcXmexbtznrifp895MS POTwice igcyr51060Qwulkzvn 2023 1:00amMay 2024 3:41pmLidocaine (Lidoderm) 5 % adhesive patch,wwqkqdhcwEzmalmezvday9HWLULWSARTGNTwbeg74285Raq 2024 12:00amJuly 2024 7:44ampainleave on most painful area for up to 12 hrsIbuprofen 600 mg yqtbnaDoahzhwfpvzh293BWZUB1P as needed for vfnm4770YjkDecember 02, 2024 12:00amSeptember 2024 10:41amCyclobenzaprine 10 mg tablet Ytvvqprfgbwh26RQMKI8W as needed for ekvc5566WonDecember 02, 2024 3:54pmJuly 2024 7:41amAtorvastatin 40 mg sceprrVkhayb65GJOHGiukuEufldgpjf 2024 12:00am UnknownPrednisone 10 mg RrvwqkPvnhrsstaana41AQCIZtefc934Sux 2017 12:00am August 04, 2018 10:11amadminister with food or milkAmoxicillin 500 mg Tablet Wfagdnhetaey705DMEYRvhgb times rndjy718Ggo 2017 12:00amJanuary 2018 10:11amAmoxicillin-Pot Clavulanate (Augmentin) 875-125 mg uyawxnDunewuefgjwt8HBE POTwice gsjdq615Bpppaaf 2018 1:00amFebruary 2018 8:58pmKetorolac 10 mg emcfyoKskgczbcwhfj30UTWXF1O as needed for gyqu67Eqfog 2018 12:00amMay 2018 9:46pmPain Pain, unspecifiedClindamycin Hcl 300 mg wjeavrnFaefbzyqjzve025RRYTGhfdn times daily22.550March 2018 12:00amApril 2018 12:00amApril 2018 12:02amcellulitisDuloxetine 30 mg Capsule,Delayed Release(Dr/Ec)Fwqjqxmrlpgp70IM POBedtimeSeptember 2018 12:00amOctober 2018 12:35pmAtorvastatin 40 mg IbkdhuYbownrvymile45QXPKTooak jnruhml674917Nhukjswnu 2018 12:00am May 05, 2019 12:37pmNitroglycerin 0.4 mg Tablet, SublingualActive0.4MG JQCJALWBORX6G as needed for Chest Stqy61238Lpdqwbkpc 2018 12:00amUnknown Aspirin 81 mg Tablet,ScojjnvkSydidsgchaln71LFEGSphjt66Gcckkqbvx 2018 12:00amJun2019 2:56pmMetoprolol Tartrate 25 mg SrfzitCbpwfnvhmoiz57.5MG POTwice zfuur993198Oahueazyr 2018 12:00Jun2019 3:00pmTicagrelor (Brilinta) 90 mg TklfpfPjvyawureuyp51ETUYYoxvc hturq122616Fjgqkczem 2018 12:00am[facility] 2019 12:11amAmoxicillin-Pot Clavulanate 875-125 mg Tablet Fjxfokaxksdo6BHJDJIjciw osnec2907Qqgshgxdj 2018 12:00amOctober 2018 12:34pmDoxycycline Hyclate 100 mg siuqevZchrzrjabtdx792UUBASixjy dailyDeceer 2018 1:00amMarch 2019 12:12amHydrocodone-Acetaminophen ([place]) 5-325 mg rmeywzLtojrwvnkckx3WCMRLPqqpc times dhybh690Ulufoesx 11th, 2019[facility] 2019 12:12amCutaneous abscess, unspecifiedClopidogrel 75 mg vphefbArknak11MGAK DailyVan [facility] 2019 12:00amanticoagulationUnknownInsulin Lispro (Admelog U-100 Insulin Lispro) 100 unit/mL solutionDiscontinuedVan [facility] 2019 12:00amJune 2019 2:57pmEmpagliflozin 25 mg wlnonnQzhektmwmxxc56RHTZJjdzfZmbqs 2019 12:00amJuly 2023 10:40amdmDulaglutide 1.5 mg/0.5 mL pen injector Discontinued1.5MGSUBCUTevery weekVan [facility] 2019 12:00amFebruary 2023 12:19pmdmAspirin 81 mg Tablet,Delayed Release (Dr/Ec)Ugyerkmqrhti67NCXTVyooiStjs 2019 12:00am[facility] 2023 11:40amMI preventionInsulin Lispro (Humalog U-100 Insulin) 100 unit/mL OrixyukhZlckmsrihnfj168HFMRUASLNTTb DirectedFormerly [facility] 2019 12:00am[facility] 2023 11:45amMetoprolol Tartrate 25 mg tablet Dlkdjdyeqthe53EOPYBywym dailyJune 2019 3:00pmSeptember 2024 10:47am Gabapentin 600 mg LasynaRhyzzmcvqzdb081VBSJFqnil dailyJune 2019 12:00am September 25, 2023 11:42amneuropathyCyanocobalamin (Vitamin B-12) (Vitamin B-12) 1,000 mcg ZicjftVfgvsgbajedf4124ERZKOLrtll dailyJune 2019 12:00am[facility] 2023 11:41amLisinopril 5 mg LawjefEsuxdv8XMBHHhopzUmpj 2019 12:00am htnUnknownErgocalciferol (Vitamin D2) (Vitamin D2) 1,250 mcg (50,000 unit) BasjighZypwfwxlbhpr3862VSMVJQnjvf a WeekDecember 21, 2019 12:00amMarch 2023 11:45amHydrocodone-Acetaminophen 5-325 mg urmurqSqtlpwfijxxv4OEPIWN9Y as needed for sjuh6849Zsxo2019 4:45pmOther acute postoperative pain Ergocalciferol (Vitamin D2) (Vitamin D2) 1,250 mcg (50,000 unit) capsuleActive 1250MCGPOevery 2023 11:42amUnknownInsulin Lispro (Humalog U-100 Insulin) 100 unit/mL uybwmrrbQjdmwbspjhol4WZVMUFLz DirectedVan [facility] 2023 11:42amAugust 2023 9:23amuse with insulin pumpInsulin Lispro (Humalog U- 100 Insulin) 100 unit/mL inbibxrbJgrkdqfwyojt4VLYUYKGb Sthhruvs068Mlqxbi 20th, 2024 9:21amSeptember 2023 12:54pmType 2 diabetes mellitus with hyperglycemia Type 2 diabetes mellitus with ubdieyggthefg81 units/day insulin pumpClindamycin Hcl 150 mg gzijbgnRixioxhivdjm394FCNVM8K9932Lnup 2019 12:00amJuly 2019 4:45pmGabapentin 600 mg TwfvrnErrdcbzwtxxm737KIRZAdqoy dailyJanuary 26, 2020 12:00amJuly 2019 4:53pmClindamycin Phosphate 1 % solutionDiscontinued1 APPLICTOPICALTwice dczdz238XkdbJanuary 27, 2020 12:00rch 2023 11:41amApply to left axillary areaMetformin 500 mg wvypigNidfxsjozgjz085FLJZYxxkp yofan911 January 27, 2020 12:00amMarch 2023 11:80bu613 twice a day x2 weeks, then 1000 mg twice a dayDoxycycline Hyclate 100 mg dujiqgbOsvocrhdxsjs826LLXUFo Atynaacb25325Qkoy 22nd, 2020 12:00amMarch 2023 11:22gr890 mg p.o. twice a day for 10 days, then continue 100 mg daily x1 month for hidradenitis Pantoprazole (Protonix) [address] for susp in tyolxfDybpxgekqagw35WHRV Umhrk226Vizf 2019 12:00amMarch 2023 11:44amChlorhexidine Gluconate (Hibiclens) 4 % xtnnuuCiysjmgqdlto2BXYSXIJXCIWGZXjqau9412822Vypo 2019 12:00amMarch 2023 11:41amHibiclens shampoo apply to all your body once daily, keep it for couple of minutes and then wash itPenicillin V Potassium 500 mg cwjinfEcnygmgzcaqh1590JVHVSkxpw gkjtc283Fbl 2021 12:00amMarch 2023 11:44amNaproxen (Naprosyn) 500 mg ymdkzpVqwtbgbkzgey031AHBBXnngb daily as needed for lrqi149Lio 2021 4:02pmMarch 2023 11:43amHydrocodone- Acetaminophen 5-325 mg ikopjyAframwldeanp3BLGOWO1N as needed for vpoo9821Bcnddfd 2022March 2023 11:42amChest wall pain Other chest painFluticasone Propionate (Flonase Allergy Relief) 50 mcg/actuation spray,mhqxuybchrYzavno5PCURFWCCQFDSGWBYquzg vwgim69202Gexdepfr 2024 1:00am administer into each nostrilUnknownLoratadine (Claritin) 10 mg yfhjrgUrssge43GK VZCuilk10777Ytzygoot 2024 1:00amUnknownSemaglutide (Ozempic) 2 mg/dose (8 mg/3 mL) pen bzlhzpdeQbqyeylelwfz3QXKEIARTInvs a weekFebruary 2023 1:00am February 25, 2024 9:23amFreeTextSimg Subcutaneous once weekly; Note: Source Status: Continue; Refills: 11; Qty: 3 Milliliter; Provider: Cassius Pascual Fenofibrate Nanocrystallized 145 mg kiaqpzWjulrlljuqur006IQZVBgwjhKftvm 2023 12:00amSeptember 2024 10:42amPregabalin 150 mg tsynsobRrfmrt477WOVZ Three times dailyVan [facility] 2023 12:00amUnknownIsosorbide Mononitrate 30 mg tablet extended release 24 hdBkmeky49SZTIBgpggXtjqc 2023 12:00amUnknown insulin pump cart,cont inf,BT (Omnipod Dash Pods (Gen 4))Dis[facility] 12:00amJuly 2024 7:58ampen needle, diabetic (BD Ultra-Fine Bessie Pen Needle)Active. 2023 12:00amblood sugar diagnostic (FreeStyle Lite Strips)Discontinued.[facility] 12:00amAugust 2023 8:44am insulin syringe-needle U-100 (BD Insulin Syringe Ultra-Fine)Active. 2023 12:00amSemaglutide (Ozempic) 0.25 mg or 0.5 mg(2 mg/1.5 mL) pen injectorDiscontinued0.5MGSUBCUTVan [facility]ert [facility] Hospital 2023 12:00amMarch 2023 11:44am blood-glucose transmitter (Dexcom G6 Transmitter)Discontinued.[facility], 2023 12:00amOctober 2023 3:50pmblood-glucose sensor (Dexcom G6 Sensor) Discontinued.[facility]September [facility], 2023 12:00amOctober 2023 3:50pmMeclofenamate 100 mg takbxcgFsekgvbmwylj502WOLETcnun times daily as needed for painSep 2023 12:00amSeptember 2024 10:41amInsulin Pump Cart,Auto,Bt-Cntr (Omnipod 5 G6 Intro Kit (Gen 5)) cartridgeDiscontinued0.ROUTE.ADGJWBDHW67Whkdz 2023 12:00amJuly 2024 7:58amType 2 diabetes mellitus with hyperglycemia Type 2 diabetes mellitus with hyperglycemiaAs directedInsulin Pump Cart,Automated,Bt (Omnipod 5 G6 Pods (Gen 5)) cartridgeDiscontinued0.ROUTE .OROOUDHUZ525Amqyp 2023 12:00amJuly 2024 7:58amType 2 diabetes mellitus with hyperglycemia Type 2 diabetes mellitus with hyperglycemiachange every 48 hoursBlood Sugar Diagnostic (True Metrix Glucose Test Strip) stripActive0.ROUTE.UUZJQZCUD8022 September 25, 2023 12:00amType 2 diabetes mellitus with hyperglycemia Type 2 diabetes mellitus Type 2 diabetes mellitus with hyperglycemia Type 2 diabetes mellitus without complicationstest qd with true metrix meter Glucagon (Gvoke Hypopen 2-Pack) 0.5 mg/0.1 mL auto-slszbupiYmemtbkmdcse2TQRAZEJY Once0.41March 2023 12:00amSeptember 2024 10:41amType 2 diabetes mellitus with hyperglycemia Type 2 diabetes mellitus with hyperglycemiaprn hypoglycemia, may repeat in 15 minutesSemaglutide (Ozempic) 2 mg/dose (8 mg/3 mL) pen hfsylmeiCyvskkhpiqbt7JF SUBCUTOnce a wslf06Lwitcw 2023 9:22amJuly 2024 7:58amType 2 diabetes mellitus with hyperglycemia Type 2 diabetes mellitus with czhoojxzyhqbp5py Subcutaneous once weekly Empagliflozin 25 mg bprharKtajmt24EHWICfeej217Oasz 2024 8:04amType 2 diabetes mellitus with hyperglycemia Type 2 diabetes mellitus with hyperglycemia dmUnknownTirzepatide (Mounjaro) 5 mg/0.5 mL pen rcghzjrnDwjhij8UDIEHWRPtnttc xcju81Hfnj 2024 12:00amType 2 diabetes mellitus with hyperglycemia Type 2 diabetes mellitus with hyperglycemiaUnknownInsulin Aspart (Niacinamide) (Fiasp Flextouch U-100 Insulin) 100 unit/mL (3 mL) insulin mbvQepsra9AEBLCOQrt as Anrizmvf933Oeyb 2024 12:00amType 2 diabetes mellitus with hyperglycemia Type 2 diabetes mellitus with hyperglycemiaicr 1:5 ac tid plus corrective scale 1:20 ac, hs if >200 half dose) subcutaneously use as directed; If off insulin pumpUnknownBlood-Glucose Sensor (Dexcom G7 Sensor) deviceActive0 MISCELLANE.TPVHBWYGV41Tzyj 2024 12:00amType 2 diabetes mellitus with hyperglycemia Type 2 diabetes mellitus with hyperglycemiachange every 10 daysInsulin [employer] Cart,Aut,G6/7,Cntr (Omnipod 5 G6-G7 Intro Kt(Gen5)) cartridgeActive0.ROUTE .QIZHSODLG85Xwcp 2024 12:00amType 2 diabetes mellitus with hyperglycemia Type 2 diabetes mellitus with hyperglycemiause with omnipod 5 g6/g7 podsInsulin Pump Cart,Auto,Bt,G6/7 (Omnipod 5 G6-G7 Pods (Gen 5)) cartridgeActive0.ROUTE .IMKIJHRGH473Ealf 2024 12:00amType 2 diabetes mellitus with hyperglycemia Type 2 diabetes mellitus with hyperglycemiachange pod every 2 days (50 pods for 90 days)Oxycodone 5 mg lmybaeVtsbmsixghsl5ENKXI3O as needed for Xumd6959Yeizpji 2024October 2024 1:28pmStatus post open reduction and internal fixation (ORIF) of fracture Other specified postprocedural states Personal history of (healed) traumatic fractureokay to fill 04/28/25 to be used post op 04/29/25Doxycycline Hyclate 100 mg xhkdrdmPypdqc542UWONEpani tpltq4964Ischwgi 2024 12:00amokay to fill 04/28/25 to be used post op 04/29/25UnknownMeloxicam 15 mg kayeswYcuzip40LEOEaxmym78789 April 28, 2025 12:00amokay to fill 04/28/25 to be used post op 04/29/25UnknownAcetaminophen 500 mg dzemjmTykbov570FKKGA5O as needed for Daeq141Yleprbn 2024 12:00amokay to fill 04/28/25 to be used post op 04/29/25UnknownDocusate Sodium (Colace) 100 mg capsuleActive 100MGPOTwice daily as needed for Jqxvqymjyzsv43933Coghlug 2024 12:00amokay to fill 04/28/25 to be used post op 04/29/25UnknownOxycodone 5 mg uvtsjoyRghicu8UEXENqveh 8 hours as needed for nuxd4267Vtnafmu 2024Fracture of left patella Unspecified fracture of left patella, initial encounter for closed fracture Unknown Immunizations Immunization Event Date Not Given Reason Dose Number [employer] Work[employer] Lot Number Reason(s) Given Vaccine Information Statement (VIS) Detail Administration Location COVID-19 Roxie Jimenes (Pfizer) November 21, 2020 COVID-19 mRNA, Comirnaty (Pfizer)December 12, 2020Tetanus, Diphtheria, Pertussis (Tdap)July 30, 2018k5f5rFAultman Alliance Community Hospital CtrTrivalent Influenza VaccineAugust 2015 Medical Equipment Device [...] 9:47am March 29, 2025 10:58am 7.9 10*3/uL 3.8-11.6FAult[facility]tr [id number] [address] [facility] [address]Pbqgommjgzb WBC CountSeptember 2024 9:47amSeptember 2024 10:58am7.9 10*3/uL3.8-11.6FA[facility] [id number] [address] [facility] [address]Aef Blood CountSeptember 2024 9:47amSeptember 2024 10:58am4.09 10*6/uL3.60-5.00[facility] [id number] [address] [facility] [address]AwogeonxbbLyalqrugg 2024 9:47amSeptember 2024 10:58am8.5 g/dLBelow low mbspva29.8-15.4FA[facility] [id number] [address] [facility] [address]NmxknrtlsuFebwmyhts 2024 9:47amSeptember 2024 10:58am27.1 %Below low kdugdi45.0-46.4FAult[facility] [id number] [address] [facility] [address]Oemp Corpuscular VolumeSeptember 2024 9:47amSeptember 2024 10:58am66.3 fLBelow low rmzouf92-519[facility] [id number] [address] [facility] [address]Yhir Corpuscular HemoglobinSeptember 2024 9:47amSeptember 2024 10:58am20.7 pgBelow low vyxjle47.7-34.3FA[facility] [id number] [address] [facility] [address]Jfxc Corpuscular Hemoglobin ConcentSeptember 2024 9:47am March 29, 2025 10:58am31.3 g/dLBelow low .0-35.0[facility] [id number] [address] [facility] [address]Fmo Cell Distribution WidthSeptember 2024 9:47amSeptember 2024 10:58am17.3 %Above high .9-15.3FAultman [facility] [id number] [address] [facility] [address]Aonwfucq CountSeptember 2024 9:47amSeptember 2024 10:87wb064 10*3/uLAbove high wsnniv782-107JpspqpnnzMansfield [facility] Ctr [id number] [address] [facility] 100[address]Wofo Platelet VolumeSeptember 2024 9:47amSeptember 2024 10:58am8.4 fL6.3-10.7FAult[facility] [id number] [address] [facility] 36132Itgdtsdh Distribution WidthSeptember 2024 9:47amSeptember 2024 11:38am19.28 %0.00-20.00[facility] [id number] [address] [facility] 17331Pyvsjjajcez (%) (Auto)March 29, 2025 9:47amSeptember 2024 11:38am62.6 %.[facility] [id number] [address] [place] [address] 33085Vtdxxmuduah (%) (Auto)March 29, 2025 9:47amSeptember 2024 11:38am26.8 %.[facility] [id number] [address] [facility] 24729Lsiwzlaky (%) (Auto)March 29, 2025 9:47amSeptember 2024 11:38am6.5 %.[facility] [id number] [address] [facility] 60450Wikzjhbgntq (%) (Auto)March 29, 2025 9:47amSeptember 2024 11:38am2.7 %.[facility] [id number] [address] [facility] 89040Baqwomtdi (%) (Auto)March 29, 2025 9:47amSeptember 2024 11:38am1.4 %.[facility] [id number] [address] [facility] 87630Ccydyamdq RBC Relative Count (auto)March 29, 2025 9:47am March 29, 2025 11:38am0.1 /100{WBC}0-0.5FA[facility] [id number] [address] [facility] [address]55[address]Nxxgcuprhsq # (Auto)March 29, 2025 9:47amSeptember 2024 11:38am4.9 10*3/uL1.8-7.7FA[facility] [id number] [address] [facility] 709[address]Iqeqlmewden # (Auto)March 29, 2025 9:47amSeptember 2024 11:38am2.1 10*3/uL1.00-4.8[facility] [id number] [address] [facility] 09118Vhvurgpmu # (Auto)March 29, 2025 9:47amSeptember 2024 11:38am0.5 10*3/uL0.0-0.8[facility] [id number] [address] [facility] [address]Hghstiirktd # (Auto)March 29, 2025 9:47amSeptember 2024 11:38am0.2 10*3/uL0.0-0.45[facility] [id number] [address] [facility] 16077Sozflpaer # (Auto)March 29, 2025 9:47amSeptember 2024 11:38am0.1 10*3/uL0.0-0.2FA[facility] [id number] [address] [facility] 59078Rpj Blood Cell MorphologySeptember 2024 9:47amSeptember 2024 11:38amN/AFAultman Alliance [facility] [id number] [address] [facility] 27667LhfccwvyqmunqJqozytypp 2024 9:47amSeptember 2024 11:38amSAkron [facility] [id number] [address] [facility] 80201FacqdfqppihoeLqdovyndh 2024 9:47amSeptember 2024 11:38amSAkron [facility] [id number] [address] [place] [address] 65980YdmaonjakzpmgcKwcuqrhlj 2024 9:47amSeptember 2024 11:38amSAkron [facility] [id number] [address] [place] [address] 56786ZhrttljdeblmEazapxfhr 2024 9:47amSeptember 2024 11:38amModerateMansfield Hospital Ctr [id number] [address] [place] [address] 24072TxfcbedmqwdlWhxtvfmzd 2024 9:47amSeptember 2024 11:38amMarkedFAultman Alliance Community Hospital [facility]tr [id number] [address] [place] [address] 75389RolrbyrnybkeLbkuxzpft 2024 9:47amSeptember 2024 11:38amSAkron Children[facility] [id number] [address] [place] [address] 33001PtvqadeozzUpjlveaqo 2024 9:47amSeptember 2024 11:38amSAkron [facility] [id number] [address] [place] [address] 86099QcqepywgxxzbZjadopitc 2024 9:47amSeptember 2024 11:38amSAkron [facility] [id number] [address] [place] [address] 26135EqzeqhajixcvOrefskvoh 2024 9:47amSeptember 2024 11:38amSlightMansfield Hospital Ctr [id number] [address] [facility] 48365Araejyyd EstimateSeptember 2024 9:47amSept2024 11:38amIncreasedNormCoshocton [facility] [id number] [address] [facility] 69626Cvsdzcml Morphology CommentSeptember 2024 9:47amSeptember 2024 11:38amNormalNoDetwiler [facility] [id number] [address] [facility] 64061Zsbgirfmxfm TimeSeptember 2024 9:47amSept2024 11:23am10.6 s9.0-12.9A hematocrit value greater than 55% may lead to inaccurate results in coagulation testing. Patientshaving hematocrit values >55% require a special collection tube for coagulation studies. Please contact the laboratory at [phone] for redraw instructions.[facility] [id number] [address] [facility] 14436Drsvlcwny Time International RatioSeptember 2024 9:47am March 29, [...] patients with mechanical heart valves: 3 - 4.5FA[facility] [id number] [address] [place] [address] 45333Mtlacjklh Partial Thromboplast TimeSeptember 2024 9:47am March 29, 2025 11:23am27.2 s25.1-36.5A hematocrit value greater than 55% may lead to inaccurate results in coagulation testing. Patientshaving hematocrit values >55% require a special collection tube for coagulation studies. Please c ontact the laboratory at [phone] for redraw instructions.[facility] [id number] [address] [facility] 71471Bqetlmh LevelSeptember 2024 9:47amSeptember 2024 11:96sy732 mg/dLAbove high jdioak87-731CXO recommended reference rangeRandom Glucose Reference Range is dependent on time and content of last meal. Glucose of more than 200 mg/dL in a nonstressed, ambulatory subject supports the diagnosisof Diabetes Mellitus.[facility] [id number] [address] [facility] 44446Immertm LevelOctober 2024 8:32amOctober 2024 9:35am 192 mg/dLAbove high zolpww70-533LUC recommended reference rangeRandom Glucose Reference Range is dependent on time and content of last meal. Glucose of more than 200 mg/dL in a nonstressed, ambulatory subject supports the diagnosisof Diabetes Mellitus.[facility] [id number] [address] [facility] 79200Oykwo Urea NitrogenSeptember 2024 9:47amSeptember 2024 11:21am12 mg/dL-[facility] [id number] [address] [place] [address] 19544Lnqja Urea NitrogenOctober 2024 8:32amOctober 2024 9:35am10 mg/dL01-29[facility] [id number] [address] [facility] 11604ZdyecdbdrrJhrxzeuqg 2024 9:47amSeptember 2024 11:21am0.78 mg/dL0.60-1.20[facility] [id number] [address] [facility] 35748HelrtigisaVjgjlbt 2024 8:32amOctober 2024 9:35am 0.67 mg/dL0.60-1.20[facility] [id number] [address] [place] [address] 74055Hlyjmrodq GFR (CKD-EPI)March 29, 2025 9:47amSeptember 2024 11:21am> 60.0 mL/MinMansfield Hospital Ctr [id number] [address] [place] [address] 55538Bwzkgzjxe GFR (CKD-EPI)May 05, 2025 8:32amOctober 2024 9:35am> 60.0 mL/MinMansfield Hospital Ctr [id number] [address] [facility] 72834Bksuyw LevelSeptember 2024 9:47amSeptember 2024 11:00lj933 mmol/LBelow low fmeobd930-071CodiytvvcMansfield Hospital Ctr [id number] [address] [facility] 41782Urztgc LevelOctober 2024 8:32amOctober 2024 9:35am 137 mmol/X163-062QtdtcbvlcMansfield Hospital Ctr [id number] [address] [facility] 25902Uljerberg LevelSeptember 2024 9:47amSeptember 2024 11:21am3.5 mmol/L3.5-5.1FA[facility] [id number] [address] [facility] 91088Tbscghpjm LevelOctober 2024 8:32amOctober 2024 9:35am4.8 mmol/L3.5-5.1FA[facility] [id number] [address] [facility] 45303Rabpbszh LevelSeptember 2024 9:47amSeptember 2024 11:89eb988 mmol/S93-061OywkhfwceMansfield Hospital Ctr [id number] [address] [facility] 15846Qqoyhiub LevelOctober 2024 8:32amOctober 2024 9:23xe038 mmol/R79-434YomwkpcjtMansfield Hospital Ctr [id number] [address] [facility] 70119Femsdj Dioxide LevelSeptember 2024 9:47amSeptember 2024 11:21am23.2 mmol/L21.0-31.0[facility] [id number] [address] [place] [address] 48634Ozgxwm Dioxide LevelOctober 2024 8:32amOctober 2024 9:35am26.9 mmol/L21.0-31.0[facility] [id number] [address] [facility] 17930Ufyqh GapSeptember 2024 9:47amSeptember 2024 11:21am10.3 mEq/L6.0-15.0[facility] [id number] [address] [facility] 79818Ljwpz GapOctober 2024 8:32amOctober 2024 9:35am8.9 mEq/L6.0-15.0[facility] [id number] [address] [facility] 89860Zptzzdf LevelSeptember 2024 9:47amSeptember 2024 11:21am8.9 mg/dL8.6-10.3FA[facility] [id number] [address] [facility] 19501Bdstkym LevelOctober 2024 8:32amOctober 2024 9:35am 9.1 mg/dL8.6-10.3FA[facility] [id number] [address] [place] [address] 27633Brajbtkhfl LevelOctober 2024 8:32amOctober 2024 9:35am3.8 mg/dL2.5-4.5FA[facility] [id number] [address] [facility] 17002Vrbbq ProteinSeptember 2024 9:47amSeptember 2024 11:21am7.1 g/dL6.4-8.9[facility] [id number] [address] [facility] 52578ZyhkmezCeqtqhmxr 2024 9:47amSeptember 2024 11:21am 4.2 g/dL3.5-5.7FAult[facility] [id number] [address] [facility] 91965ZrmxckjVwquydv 2024 8:32amOctober 2024 9:35am3.8 g/dL3.5-5.7FA[facility] [id number] [address] [place] [address] 30626FtifydbkEsuoawtkc 2024 9:47amSeptember 2024 11:21am 2.9 g/dLMansfield Hospital Ctr [id number] [address] [facility] 83978Ezyenjf/Globulin RatioSeptember 2024 9:47amSeptember 2024 11:21am1.4FAult[facility] [id number] [address] [facility] 43987Uakgm BilirubinSeptember 2024 9:47amSeptember 2024 11:21am0.2 mg/dLBelow low normal0.3-1.0[facility] [id number] [address] [facility] 49864Hrwekpfzi Amino Transf (AST/SGOT)March 29, 2025 9:47am March 29, 2025 11:21am14 U/T38-21KtwkufzzhMansfield Hospital Ctr [id number] [address] [facility] 70156Wokbtpr Aminotransferase (ALT/SGPT)March 29, 2025 9:47am March 29, 2025 11:21am14 U/L7-52[facility] [id number] [address] [place] [address] 77632Glprwyla PhosphataseSeptember 2024 9:47amSeptember 2024 11:21am79 U/Z07-265YusccancsMansfield Hospital Ctr [id number] [address] [facility] 84511Zhqpb Creatine KinaseSeptember 2024 9:47amSeptember 2024 11:95ib245 U/A90-565CesamiktmMansfield Hospital Ctr [id number] [address] [place] [address] 32436Hzxyicgm I High SensitivitySeptember 2024 9:47amSeptember 2024 11:26am3 ng/L0-15The Troponin units of report have been changed to meet the Chest Pain Accreditation requirement, element EC5.M1l2. Troponin units are changed from pg/ml to ng/L. Also, the decimal is removed and results are in whole numbers.[facility] [id number] [address] [facility] 47752Wsripfpwwcq LevelOctober 2024 8:32amOctober 2024 9:38og658 mg/dLBelow low -100Fyok less than 200 mg/dl low riskChol 201- 239 mg/dl borderline riskChol 240 mg/dl and greater high riskMansfield Hospital Ctr [id number] [address] [facility] 39958YRV CholesterolOctober 2024 8:32amOctober 2024 9:35am32 mg/eR62-57EGD CHOL ATP-III CLASSIFICATION Cardiovascular RiskHDL > or equal to 60 mg/dL LOWHDL < 40 mg/dL HIGHMansfield Hospital Ctr [id number] [address] [facility] 25122Dvgristuszgyz LevelOctober 2024 8:32amOctober 2024 9:35am75 mg/dL0-149TRIG ATP III CLASSIFICATIONTRIG less than 150 mg/dL NormalTRIG 150-199 mg/dL Borderline highTRIG 200-500 mg/dL High TRIG greater than 500 mg/dL Very highStandard traceable to the Center for Disease Conrtrol and Prevention (CDC) test method.[facility] [id number] [address] [facility] 09435JOW Cholesterol, CalculatedOctober 2024 8:32amOctober 2024 9:35am56 mg/dL0-100LDL ATP III CLASSIFICATIONLDL less than 100 mg/dL OptimalLDL 100-129 mg/dL Near or above syumgrxSFZ468-400 mg/dL Borderline highLDL 160-189 mg/dL HighLDL greater than 189 mg/dL Very highMansfield Hospital Ctr [id number] [address] [place] [address] 65234XSHC CholesterolOctober 2024 8:32amOctober 2024 9:35am15 mg/dLMansfield Hospital Ctr [id number] [address] [place] [address] 91634Nxtxvdkbhfy/HDL RatioOctober 2024 8:32amOctober 2024 9:35am3.2<5.0[facility] [id number] [address] [place] [address] 6911827-Drkyaaj Vitamin D TotalOctober 2024 8:32amOctober 2024 10:02am51.8 ng/qD13-550VOQICPD D STATUS 25(OH)VITAMIN D RANGE (ng/mL) Deficient <20 Insufficient 20 to <17Khvipywgjx83 to 100Reference: Nivia SHER,Faith [place], Oswaldo [place], et al. Evaluation,treatment, and prevention of vitamin D deficiency; an Endocrine Society clinical practice guideline. JCEM. 2010; 96(7):1911-30.[facility] [id number] [address] [facility] 52973Cqxrijfq Creatinine Clearance (ChemSeptember 2024 9:47am March 29, 2025 11:48lk642.67[facility] [id number] [address] [facility] 67784Eingejui Creatinine Clearance (ChemOctober 2024 8:32am May 05, 2025 9:35amN/AFAultman Alliance Community Hospital [facility] [id number] [address] [facility] 92080Gjlzymontp B5mZeczedm 2024 8:31amOctober 2024 10:07am11.6 %Above high normal4.3-5.6Increased risk for diabetes: 5.7 - 6.4diabetes: >6.4glycemic control for adults with diabetes: <7.0[facility] [id number] [address] [facility] 61240Vmncvwfks Average GlucoseOct2024 8:31amOct2024 10:87hd756 mg/dLMansfield Hospital Ctr [id number] [address] [facility] 38216Sgbjr Microalbumin mg/dlOctober 2024 8:32amOct2024 9:37am3.5 mg/dLAbove high normal0.0-1.8[facility] [id number] [address] [facility] 53658Fvkuh Random CreatinineOctober 2024 8:32amOct2024 9:92jq814.00 mg/dLNo reference range establishedTwin City Hospital [id number] [address] [facility] 48134Wvpbk Microalbumin/Creatinine RatioOctober 2024 8:32am May 05, 2025 9:37am34.3 mg/gAbove high normal0.0-30.030-300 mg/g indicates an increased risk for diabetic nephropathy. Greater than 300 mg/g is consistent with clinical nephropathy. (Am. J. Kidney Disease 1994, 25:107)[facility] [id number] [address] [facility] 25300Vkezqna GlucoseSeptember 2024 11:20amSeptember 2024 11:81wz746 mg/dLRandom Glucose Reference Range is dependent on time and content of last meal. Glucose of more than 200 mg/dL in a nonstressed, ambulatory subject supports the diagnosis of Diabetes Mellitus.Point of Care testing Diagnostic Imaging Reports Author Guilherme Noriega [facility] HospitalAuthoredSeptember 2024 11:34amReport Dictated Date/TimeDictated ByStatusRadiology ReportSeptember 2024 11:34am Guilherme Noriega Jr DOcompleteKeenan [facility] [place] [address] [place] [address] Scan Report Signed Patient: Anahi Dinero I MR# : [id number] : 1985 Acct:[id number] Age/Sex: 39 / F ADM Date: 5 Loc: ER Room: Type: [facility] ER Attending Dr: Copies to: Ahsan Mata [...] ABNORMALITY. Impression dictated by: Guilherme Noriega Jr., D.OElgin 03/29/2025 11:36 AM Dictation Location: RADIO-PC-22 Transcribed By: JASON 03/29/25 1136 Dictated By: Guilherme Noriega Jr, DO 03/29/25 1134 Signed By: <Electronically signed by Guilherme Noriega Jr, DO in OV> 03/29/25 1136 Vital Signs Vital Reading Result Reference Range Collection Date/Time Height 65 [in_i] March 29, 2025 9:26meReuyaj593.60 kgSeptember 2024 9:31amBody Qqqblogdgjd20.4 [degF]97.6-99.0Sept2024 9:31amHeart Rate76 /min 60-100ptember 2024 11:27amRespiratory rate20 /emh61-36Pntknqbkf 22nd, 2025 11:27amOxygen saturation by Pulse jivkcvgt079 %95-100Sept2024 11:27amBP Dzyvivnx477 mm[Hg]100-140Sept2024 11:27amBP Silnwywbi11 mm[Hg]60-100Sept2024 11:27am Advance Directives Advance Directive Response Recorded Date/ Time Advance Directives No April 22, 2025 4:55pm Insurance Providers Guarantor Anahi Dinero I Address [address] [facility] [address]Fshvzrj Info.Home Phone: Coverage Status Update:2025 Payer Group Member ID Coverage Type Subscriber Relationship to Subscriber Effective Date Expiration Date Shyanne VÁSQUEZ Id: [id number] Williamson I Id: [id number] [address] [address] Home Phone: Email: [email or web address] [id number] Williamson I Id: [id number] [address] [address] Home Phone: Email: [email or web address] Encounter Location(s) Arrival/Admit Date Discharge/Departure Date Discharge/Departure Disposition Provider(s) Departed Emergency -Emergency Room March 29, 2025 9:14am March 29, 2025 1:44pm Discharged to home care or self care (routine discharge) Departed Physician/Provider Office [facility] 2024 11:20amDischarged to home care or self care (routine discharge)Anatoly Reis Clinical-Lab [facility] 2024 8:21amOcte[facility] 2024 8:22amDischarged to home care or self care (routine discharge)Raul Rivas , Recent Diagnosis Onset Date Admit Date Fracture of left patella Unknown April 22, 2025 10:03am Assessments Diagnosis Onset Date Resolution Status Admit Date [facility]racture of left patella [facility] 2024 10:03am Plan of Treatment Author Raul Rivas [facility] 2024 12:21pmDiscussed with patient and company on the patient's [...] Procedure: ORIF left patella fracture Antibiotics: Ancef, Doxy 100 mg twice daily for 7 days DVT ppx: Restart postoperative day 2 Same Day Surgery: Yes Bed: Regular OR bed, fluoroscopy Instruments needed: Mini frag set, Synthes cannulated screws Future Tests Future scheduled test information is unavailable Pending Tests Test Name Ordered Date Scheduled Date C-Peptide May 05, 2025 8:32am Future Visits Future appointment information is unavailable Future Procedures Procedure Name Ordered Date Scheduled Date C-Peptide May 05, 2025 8:32am Octobe r 2024 8:32am Future Medications Future medication information is unavailable Patient Instructions Instruction Admit Date Hand Numbness Peripheral neuropathy High blood sugar in adults - ED discharge instructionsSeptember 2024 9:14am
[2025-05-06] VITALS (12 sets, daily range): BP systolic 108–149; BP diastolic 57–79; PULSE 82–91; TEMP 36.2–36.4; O2SAT 93–100; BMI 38.9
--- OUTSIDE RECORDS SUMMARY | 2025-05-06 11:10 | XMS_ITS | Encounter Summary ---
Author Organization [facility] Address [address] [place] [address] Care Team Providers Care Clean Out Driller Name Role Phone MasterMark Anthony venegas Primary Care Provider [phone] Encounter Details DateTypeDepartmentCare Team (Latest Contact Info)Iirulfpaqqf34/20/2025amboo flowsheet [facility] [address] [place] [address] Christina Arnold NP [address] [place] [address] Social History Tobacco UseTypesPacks/DayYears UsedDateSmoking Tobacco: Every [...] drinks on one occasion?Never11/29/2022HQ-2AnswerDate RecordedPatient Health Questionnaire-2 [id number]x and Gender InformationValueDate RecordedSex Assigned at BirthNot on fileLegal SexFemale 09/19/2022 7:01 PM EDTGender IdentityNot on fileSexual OrientationNot on file documented as of this encounter Plan of Treatment DateTypeDepartmentCare Team (Latest Contact Info)Pwoczhaigkh72/20/2026 9:40 AM ESTOffice Visit [facility] [place] [facility] [address] [place] [address] Evy Swnan MD [address] [place] [address] documented as of this encounter Visit Diagnoses Not on filedocumented in this encounter Care Teams Team MemberRelationshipSpecialtyStart DateEnd Date Mark Anthony Carvajal DO [address] [place] [address] PCP - GeneralFamily Medicine11/22/22documented as of this encounter
--- OUTSIDE RECORDS SUMMARY | 2025-05-06 11:10 | XMS_ITS | Encounter Summary ---
Author Organization [facility] Address [address] [facility] [place] [address] Care Team Providers Care Electric Welder Helper Name Role Phone Mark Anthony Carvajal Primary Care Provider [phone] Reason for Visit * ReasonOnset DateCommentsMed Sxyoox1205/04/2025 Encounter Details DateTypeDepartmentCare Team (Latest Contact Info)Fiyrcsnzbhm27/28/2025Refill [facility] [address] [place] [id number] Amira Preciado LPN Type 2 diabetes mellitus with hyperglycemia, with long-term current use of insulin (HCC) Social History Tobacco UseTypesPacks/DayYears UsedDateSmoking Tobacco: Every [...] drinks on one occasion?Never11/29/2022HQ-2AnswerDate RecordedPatient Health Questionnaire-2 Ekrtx411CommentsUnknownSex and Gender InformationValueDate RecordedSex Assigned at BirthNot on fileLegal SexFemale 09/19/2022 7:01 PM EDTGender IdentityNot on fileSexual OrientationNot on file documented as of this encounter Miscellaneous Notes * Telephone Encounter - Amira Preciado LPN - 05/04/2025 10:47 AM EDT MEDICATION SENT TO PHARMACY. documented in this encounter Plan of Treatment DateTypeDepartmentCare Team (Latest Contact Info)Satsqzeqenc37/20/2026 9:40 AM ESTOffice Visit [facility] [place] [facility] [address] [place] [address] Evy Swann MD [address] [place] [address] documented as of this encounter Visit Diagnoses Diagnosis Type 2 diabetes mellitus with hyperglycemia, with long-term current use of insulin (HCC) documented in this encounter Care Teams Team MemberRelationshipSpecialtyStart DateEnd Date Mark Anthony Carvajal DO [address] [place] [address] PCP - GeneralFamily Medicine11/22/22documented as of this encounter
--- OUTSIDE RECORDS SUMMARY | 2025-05-06 11:10 | XMS_ITS | Clinical Summary ---
Author Organization [facility] Address [address] [place] [address] Phone Care Team Providers Care Gallery Or Museum Curator Name Role Phone Christina Arnold Bayron FORENSIC STRUCTURAL ENGINEER-SUPERVISOR STENO POOL Primary Care Provider + Allergies Active AllergyReactionsCriticalityNoted DateCommentsSurfactantsNausea/vomiting Sggcuy2004/10/2023 Medications MedicationSigDispense QuantityRefillsLast FilledStart DateEnd DateStatus empagliflozin (Jardiance) 25 mg Take 1 tablet (25 mg) by mouth once daily.Active pregabalin (Lyrica) 150 mg capsule Take 1 capsule (150 mg) by mouth 3 times a day.Active nitroglycerin (Nitrostat) 0.[address] 1 tablet (0.4 mg) under the tongue every 5 minutes if needed for chest pain.Active ergocalciferol (Vitamin D-2) 1.25 MG (99536 UT) capsule Take 1 capsule (1.25 mg) by mouth 1 (one) time per week.Active insulin lispro (HumaLOG) 100 unit/mL injection USE SUBCUTANEOUSLY DIRECTED. MAX DAILY DOSE OF 80 UNITS PER INSULIN PUMP 4Active Mounjaro 5 mg/0.5 mL pen injector 1 (one) time per week.5Active oxyCODONE (Oxy-IR) 5 mg immediate release capsule TAKE 1 CAPSULE BY MOUTH EVERY 8 HOURS NEEDED FOR PAIN FOR 7 DAYS04/23/2025 Active nicotine (Nicoderm CQ) 21 mg/24 hr patch Indications:Current every day smokerPlace 1 patch over 24 hours on the skin once every 24 hours. 30 patch tive metoprolol tartrate (Lopressor) 25 mg tablet Indications:Essential hypertensionTake 1 tablet (25 mg) by mouth 2 times a day. 180 tablet ctive isosorbide mononitrate ER (Imdur) 30 mg 24 hr tablet Indications:Coronary artery disease with angina pectoris, unspecified vessel or lesion type, unspecified whether [place] or transplanted heartTake 1 tablet (30 mg) by mouth once daily. Do not crush or chew. 90 tablet ctive atorvastatin (Lipitor) 40 mg tablet Indications:Hyperlipidemia, unspecifiedTake 1 tablet (40 mg) by mouth once daily in the morning. Take before meals. 90 tablet tive clopidogrel (Plavix) 75 mg tablet Indications:Coronary artery disease involving [place] coronary artery of [place] heart without angina pectorisTake 1 tablet (75 mg) by mouth once daily. 90 tablet tive fenofibrate (Tricor) 145 mg tablet Indications:Coronary artery disease involving [place] coronary artery of [place] heart without angina pectoris,Mixed hyperlipidemiaTake 1 tablet (145 mg) by mouth once daily. 90 tablet ctive lisinopril 5 mg tablet Indications:Essential hypertensionTake 1 tablet (5 mg) by mouth once daily. 90 tablet tive blood-glucose sensor (DEXCOM G6 SENSOR MISC) 04/26/2025Discontinued(Med List Cleanup) Ozempic 2 mg/dose (8 mg/3 mL) pen injector 1 (one) time per week.Discontinued(Therapy completed) isosorbide mononitrate ER (Imdur) 30 mg 24 hr tablet Indications:Acute chest pain,Coronary artery disease with angina pectoris, unspecified vessel or lesion type, unspecified whether [place] or transplanted heartTAKE 1 TABLET (30 MG) BY MOUTH ONCE DAILY. DO NOT CRUSH OR CHEW. 90 tablet Discontinued(Reorder) clopidogrel (Plavix) 75 mg tablet Indications:Coronary artery disease involving [place] coronary artery of [place] heart without angina pectorisTAKE 1 TABLET BY MOUTH ONCE DAILY. 90 tablet 310/Discontinued(Reorder) lisinopril 5 mg tablet Indications:Essential hypertensionTAKE 1 TABLET BY MOUTH EVERY DAY 90 tablet 310/Discontinued(Reorder) fenofibrate (Tricor) 145 mg tablet Indications:Coronary artery disease involving [place] coronary artery of [place] heart without angina pectoris,Mixed hyperlipidemiaTake 1 tablet (145 mg) by mouth once daily. 90 tablet 301/Discontinued(Reorder) metoprolol tartrate (Lopressor) 25 mg tablet Indications:Essential hypertensionTake 1 tablet (25 mg) by mouth 2 times a day. 180 tablet Discontinued(Reorder) atorvastatin (Lipitor) 40 mg tablet Indications:Hyperlipidemia, unspecifiedTAKE 1 TABLET (40 MG) BY MOUTH ONCE DAILY IN THE MORNING. TAKE BEFORE MEALS. 90 tablet 108Discontinued(Reorder) Active Problems ProblemNoted DateDiagnosed DatePre-operative ibrgepvrb48/20/2025 Assessment & Plan (04/27/2025 9:03 AM EDT): Adhering to ACC/AHA guidelines, a patient with daily activity greater than 4 METS proceeding with intermediate surgical risk procedure may proceed without additional cardiovascular testing. Patient is also had favorable cardiovascular testing within the last 7 months (GXT no ischemia at 7 METS). At this time, no prohibitive cardiovascular risk to proceed with surgical procedure. BMI 36.0-36.9,adult10/15/2023 Assessment & Plan (04/27/2025 9:01 AM EDT): Reviewed the merits of healthy lifestyle choices on overall cardiovascular health. Essential jwvytkjhuxyf79/04/2023 Assessment & Plan (04/27/2025 9:01 AM EDT): optimal in office Assessment & Plan (04/10/2023 9:16 AM EDT): optimal in office Acute chest pain03/02/2023cute myocardial infarction of inferior wall03/02/2023 Dvudrh9003/02/2023AD (coronary artery disease)03/02/2023 Assessment & Plan (04/27/2025 9:01 AM EDT): Mar 2019 NSTEMI pRCA PCI/Katia 4/18mm mLAD EKG MONITOR PCI/Katia 2.25/33mm Feb 2020 MPI no ischemia LVEF 60% September 2024: GXT no ischemia at 7 METs Current daily activity 4 METS without recurrent symptoms Assessment & Plan (04/10/2023 9:16 AM EDT): Mar 2019 NSTEMI pRCA PCI/Katia 4/18mm mLAD EKG MONITOR PCI/Katia 2.25/33mm Feb 2020 MPI no ischemia LVEF 60% Current daily activity 4 METS without recurrent symptoms Current every day npwzzs0103/02/2023 Assessment & Plan (04/26/2025 10:13 AM EDT): 1/2 to 1 pack per day 13 pack year history Continued every day tobacco use. Have reviewed the negative cardiovascular impact of nicotine. Continues to decline pharmacological assistance. Prior: nicoderm patches without benefit Willing to try nicoderm patches again Assessment & Plan (04/10/2023 8:47 AM EDT): 1 pack per day 11 pack year history Continued every day tobacco use. Have reviewed the negative cardiovascular impact of nicotine. Continues to decline pharmacological assistance. Prior: nicoderm patches without benefit Diabetes vswiqckk35/26/2023 Assessment & Plan (04/27/2025 9:01 AM EDT): Reports diagnosed at age 12 Has insulin pump On JESU/statin November 2022 HgA1c 11 Assessment & Plan (04/10/2023 9:17 AM EDT): Reports diagnosed at age 12 Has insulin pump On JESU/statin November 2022 HgA1c 8.9 Disorder of urngou6203/02/20231260Wrenlnuxfqws15/26/2023 Assessment & Plan (04/27/2025 9:01 AM EDT): Moderate intensity statin Due for labs Assessment & Plan (04/10/2023 9:16 AM EDT): Moderate intensity statin Due for labs Status post uheknlyghqw70/26/2023 Encounters DateTypeDepartmentCare WbvcYtrklejnsqs78/20/2025 9:30 AM EDTOffice Visit [address] [place] [address] Nikki Villeda, FORENSIC STRUCTURAL ENGINEER-SUPERVISOR STENO POOL Pre-operative clearance (Primary Dx); Coronary artery disease involving [place] coronary artery of [place] heart without angina pectoris; Mixed hyperlipidemia; Essential hypertension; 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 (Multi); BMI 36.0-36.9,adult; Current every day smoker; Coronary artery disease with angina pectoris, unspecified vessel or lesion type, unspecified whether [place] or transplanted heart; Hyperlipidemia, unspecified Discharge Disposition: Home04/26/20251363Mvteoj89/16/2025Telephone [address] [place] [address] Shalonda Capps LPN Advice Only03/29/2025Scanned Document [facility] [address] [place] [address] Scanning, Generic Provider 03/04/2025Refill [address] [address] Osmar Javed, DO Hyperlipidemia, giboijhrnyk42/04/2025Telephone [address] [address] Rachell Broussard, MODULAR SET CREW MEMBER Med Refillfrom Last 3 Months Immunizations ImmunizationAdministration DatesNext DueFlu vaccine (IIV4), preservative free *Check age/dose*06/04/2023Influenza, injectable, nlzitwcosxya46/02/2017, 04/07/2016Influenza, seasonal, qrbviktaus72/15/2024,03/07/2016,06/20/2009Novel raggxknve-P0W6-51, preservative-free06/20/2009Tdap vaccine, age 7 year and older (BOOSTRIX, ADACEL)07/30/2018 Family History Medical HistoryRelationNameCommentsHeart diseaseMotherHeart diseaseSister RelationNameStatusCommentsMotherSister Social History Tobacco UseTypesPacks/DayYears UsedDateSmoking Tobacco: Every DayCigarettes0.5 22.8Started: 2003Smokeless Tobacco: Never Tobacco Cessation:Counseling Given: Yes Alcohol UseStandard Drinks/WeekCommentsNever0 (1 standard drink = 0.6 oz pure alcohol)PHQ-2AnswerDate RecordedPatient Health Questionnaire-2 Pifyp376 CommentsUnknownSex and Gender InformationValueDate RecordedSex Assigned at BirthNot on fileLegal EidUzdoal47/25/2022 4:45 PM ESTGender IdentityNot on fileSexual OrientationNot on file Last Filed Vital Signs Vital SignReadingTime TakenCommentsBlood Xtbhxfen424/6004/26/2025 9:58 AM EDT Ukrei544504/26/2025 9:58 AM EDTTemperature--Respiratory Rate--Oxygen Saturation-- Inhaled Oxygen Concentration--Eydexp27.8 kg (220 lb)04/26/2025 9:58 AM EDTHeight 165.1 cm (5' 5 )04/26/2025 9:58 AM EDTBody Mass Index36.6104/26/2025 9:58 AM EDT Plan of Treatment DateTypeDepartmentCare Team (Latest Contact Info)Xligfeqadea38/13/2026 11:00 AM EDTOffice Visit [facility] [address] [address] Nikki Villeda, FORENSIC STRUCTURAL ENGINEER-SUPERVISOR STENO POOL [address] [facility] [place] [address] Health MaintenanceDue DateLast DoneCommentsDiabetes: Celiac Disease Screening 1987HIV Zjxpxrmbj84/25/1988Lipid Panel1987Vitamin B-120 1987 Diabetes: Retinopathy Xawypauyw93/25/1998Hepatitis C Hrokzljvy61/25/2006 Hepatitis B Vaccines (1 of 3 - 19+ 3-dose series)11/29/2006Pneumococcal Vaccine: Pediatrics and At-Risk Adult Patients (1 of 2 - PCV)11/29/2006HPV/Cotest 11/29/2008MMR Vaccines (1 of 1 - Standard series)07/18/2009HPV Vaccines (1 - 3- dose standard series)11/29/2014Diabetes: Hemoglobin A1C08305/TSH Level405/3Diabetes: Urine Protein Fbfkepryl11/05/2023 Influenza Vaccine (#1)/, 06/04/2023, 04/08/2017, Additional history existsCOVID-19 Vaccine (2 - season)/Yearly Adult Ruyuqnbh42/05/2024, 12/11/2022ervical Cancer Screening 12/11/2025Pap Smear/3DTaP/Tdap/Td Vaccines (2 - Td or Tdap) /Zoster Vaccines (1 of 2)11/29/2037HIB VaccinesAged OutNo longer eligible based on patient's age to complete this topicHepatitis A VaccinesAged OutNo longer eligible based on patient's age to complete this topic IPV VaccinesAged OutNo longer eligible based on patient's age to complete this topicMeningococcal VaccineAged OutNo longer eligible based on patient's age to complete this topicRotavirus VaccinesAged OutNo longer eligible based on patient's age to complete this topic Procedures Procedure NamePriorityDate/TimeAssociated DiagnosisCommentsECG 12-LEADRoutine 04/26/2025 9:48 AM EDT Pre-operative clearance HEMOGLOBIN O0GGwvheuw08/16/2023 4:12 PM EDT TSH WITH REFLEX TO FREE T4 IF PFFFLUALRfztqrd94/16/2023 4:12 PM EDT from Last 3 Months or Most Recently Relevant to Health Maintenance Results * ECG 12 Lead (04/26/2025 9:48 AM EDT)Specimen (Source)Anatomical Location / LateralityCollection Method / VolumeCollection TimeReceived Time Narrative CPACS - 04/27/2025 12:05 PM EDT Normal sinus rhythm, normal ECG Authorizing ProviderResult TypeResult StatusNikki Villeda FORENSIC STRUCTURAL ENGINEER-CNPECG ORDERABLES Final ResultPerforming OrganizationAddressCity/State/ZIP CodePhone Number [facility] * TSH with reflex to Free T4 if abnormal (11/20/2022 4:12 PM EDT)ComponentValue Ref RangeTest MethodAnalysis TimePerformed AtPathologist SignatureTSH1.100.44 - 3.98 [facility] LABComment: TSH testing is performed using different testing methodology at [facility] than at other [facility]. Direct result comparisons should only be made within the same method. Specimen (Source)Anatomical Location / LateralityCollection Method / Volume Collection TimeReceived Time11/20/2022 4:12 PM EDT11/20/2022 5:00 PM EDT Narrative Authorizing ProviderResult TypeResult StatusGuilherme Mejía MDCLAY COUNTY MEDICAL [facility]ENTER BLOOD ORDERABLESFinal ResultPerforming OrganizationAddressCity/State/ZIP CodePhone Number [facility] [address] [phone] * (ABNORMAL) Hemoglobin A1C (11/20/2022 4:12 PM EDT)ComponentValueRef RangeTest MethodAnalysis TimePerformed AtPathologist SignatureHemoglobin A1C8.9(A)%[facility] LABComment: ? Diagnosis of Diabetes-Adults Non-Diabetic: < or = 5.6% Increased risk for developing diabetes: 5.7-6.4% Diagnostic of diabetes: > or = 6.5% . ? Monitoring of Diabetes ?Age (y) ? Therapeutic Goal (%) Adults: >18 <7.0 Pediatrics: 13-18 <7.5 7-12 <8.0 ? 0- 6 ?7.5-8.5 [place] [employer]. Diabetes Care 33(S1), Jul 2009. Estimated Average Jwelszl350MH/DLNORRISTOWN STATE HOSPITAL LABSpecimen (Source)Anatomical Location / LateralityCollection Method / VolumeCollection TimeReceived Time11/20/2022 4:12 PM EDT11/20/2022 11:05 PM EDT Narrative Authorizing ProviderResult TypeResult StatusJosejanette MARTÍNEZ BLOOD ORDERABLESFinal ResultPerforming OrganizationAddressCity/State/ZIP CodePhone Number [facility] [address] [phone] from Last 3 Months or Most Recently Relevant to Health Maintenance Insurance MemberSubscriberPlan / Payer (Effective 2024-Present)Name:Anahi Dinero Relation to Subscriber:SelfName:Anahi Dinero Payer ID:Not on file Type:Not on file Address: [facility] [id number] Care Teams Team MemberRelationshipSpecialtyStart DateEnd Date Christina Arnold, FORENSIC STRUCTURAL ENGINEER-SUPERVISOR STENO POOL [address] [address] [facility]04/10/17
--- OUTSIDE RECORDS SUMMARY | 2025-05-06 11:10 | XMS_ITS | Encounter Summary ---
Author Organization [facility] Address [address] [place] [address] Care Team Providers Care Professor Of Practice Name Role Phone Mark Anthony Carvajal Primary Care Provider [phone] Reason for Visit * ReasonOnset DateCommentsMed Crakqb7704/27/2025 Encounter Details DateTypeDepartmentCare Team (Latest Contact Info)Bzcrngedtyu43/21/2025Telephone [facility] [address] [place] [address] Evy Swann MD [address] [place] [address] Med Refill Social History Tobacco UseTypesPacks/DayYears UsedDateSmoking Tobacco: Every [...] drinks on one occasion?Never11/29/2022HQ-2AnswerDate RecordedPatient Health Questionnaire-2 Skfob705CommentsUnknownSex and Gender InformationValueDate RecordedSex Assigned at BirthNot on fileLegal SexFemale 09/19/2022 7:01 PM EDTGender IdentityNot on fileSexual OrientationNot on file documented as of this encounter Miscellaneous Notes * Telephone Encounter - Amira Preciado LPN - 04/27/2025 11:42 AM EDT MEDICATION SENT TO PHARMACY. * Telephone Encounter - Mert Atkinson - 04/27/2025 11:39 AM EDT Pt needs refill [facility] please and thank you! documented in this encounter Plan of Treatment DateTypeDepartmentCare Team (Latest Contact Info)Cqpfxramzym25/20/2026 9:40 AM ESTOffice Visit [facility] [address] [place] [address] Evy Swann MD [address] [place] [address] documented as of this encounter Visit Diagnoses Diagnosis Type 2 diabetes mellitus with hyperglycemia, with long-term current use of insulin (HCC) documented in this encounter Care Teams Team MemberRelationshipSpecialtyStart DateEnd Date Mark Anthony Carvajal DO [address] [place] [address] PCP - GeneralFamily Medicine11/22/22documented as of this encounter
--- OUTSIDE RECORDS SUMMARY | 2025-05-06 11:10 | XMS_ITS | Encounter Summary ---
Author Organization [facility] Address [address] [place] [address] Care Team Providers Care Housekeeping Aid Name Role Phone Mark Anthony Carvajal Primary Care Provider [phone] Reason for Visit * ReasonOnset DateCommentsMed Xffkfp9104/30/2025 Encounter Details DateTypeDepartmentCare Team (Latest Contact Info)Lhayedlurvm42/24/2025Telephone [facility] [address] [place] [address] Evy Swann MD [address] [place] [address] Med Refill Social History Tobacco UseTypesPacks/DayYears UsedDateSmoking [...] drinks on one occasion?Never11/29/2022HQ-2AnswerDate RecordedPatient Health Questionnaire-2 Wauvd199CommentsUnknownSex and Gender InformationValueDate RecordedSex Assigned at BirthNot on fileLegal SexFemale 09/19/2022 7:01 PM EDTGender IdentityNot on fileSexual OrientationNot on file documented as of this encounter Miscellaneous Notes * Telephone Encounter - Amira Preciado LPN - 04/30/2025 11:18 AM EDT MEDICATION SENT TO PHARMACY. * Telephone Encounter - Mert Atkinson - 04/30/2025 10:12 AM EDT Tresiba is covered lantus is not please send to [facility]. Thank you! documented in this encounter Plan of Treatment DateTypeDepartmentCare Team (Latest Contact Info)Cwidgqqyuan79/20/2026 9:40 AM ESTOffice Visit [facility] [address] [place] [address] Evy Swann MD [address] [place] [address] documented as of this encounter Visit Diagnoses Diagnosis Type 2 diabetes mellitus with hyperglycemia, with long-term current use of insulin (HCC) documented in this encounter Care Teams Team MemberRelationshipSpecialtyStart DateEnd Date Mark Anthony Carvajal DO [address] [place] [address] PCP - GeneralFamily Medicine11/22/22documented as of this encounter
--- OUTSIDE RECORDS SUMMARY | 2025-05-06 11:10 | XMS_ITS | Encounter Summary ---
Author Organization [facility] Address [address] [place] [address] Phone Care Team Providers Care Pipeline Systems Operator Name Role Phone Christina Arnold BABY FORMULA WORKER-ASSOCIATE PROFESSOR OF THEATRE Primary Care Provider + Encounter Details DateTypeDepartmentCare Team (Latest Contact Info)Jogfdbjbhuw14/20/2025Travel Social History Tobacco UseTypesPacks/DayYears UsedDateSmoking Tobacco: Every DayCigarettes0.5 22.8Started: 2003Smokeless Tobacco: NeverAlcohol UseStandard Drinks/WeekComments Never0 (1 standard drink = 0.6 oz pure alcohol)PHQ-2AnswerDate RecordedPatient Health Questionnaire-2 Bwexz321/04/2023CommentsUnknownSex and Gender InformationValueDate RecordedSex Assigned at BirthNot on fileLegal SexFemale 06/01/2022 4:45 PM ESTGender IdentityNot on fileSexual OrientationNot on file documented as of this encounter Functional Status * BPAnswerDate of VolzdhdepfZczyru235/6004/26/2025 9:58 AM Margie Collins CMA * PulseAnswerDate of LclyrqqchwGymbuu0634/20/2025 9:58 AM Margie Collins CMA * Communicable Disease ScreeningQuestionAnswerDate of AssessmentAuthorDo you have any of the following new or worsening symptoms?None of these04/26/2025 9:48 AM Briseyda Henning documented as of this encounter Plan of Treatment DateTypeDepartmentCare Team (Latest Contact Info)Lpopjfdwyrd62/13/2026 11:00 AM EDTOffice Visit [facility] [address] [facility] [address] [place] [address] Nikki Villeda, BABY FORMULA WORKER-ASSOCIATE PROFESSOR OF THEATRE [address] [facility] [address] [place] [address] documented as of this encounter Visit Diagnoses Not on filedocumented in this encounter Care Teams Team MemberRelationshipSpecialtyStart DateEnd Date Christina Arnold, BABY FORMULA WORKER-ASSOCIATE PROFESSOR OF THEATRE [address] [place] [address] PCP - Pfyruwq80/4/17documented as of this encounter
--- OUTSIDE RECORDS SUMMARY | 2025-05-06 11:10 | XMS_ITS | Clinical Summary ---
Author Organization [facility] Address [address] [place] [address] Care Team Providers Care Riding Silks Custodian Name Role Phone Dannazeenat Christina Susan BARRIENTOS Primary Care Provider [phone] Mark Anthony Carvajal DO Unavailable [phone] Allergies Active AllergyReactionsCriticalityNoted DateCommentsLiraglutideOther: See Pzclnsqq55/20/2022MetforminOther: See Jsewyppf09/20/2022 Sulfamethoxazole-TrimethoprimOther: See Ilazhois15/25/2020 Nausea and vomiting TrimethoprimGI Upset12/28/2019 Medications MedicationSigDispense QuantityRefillsLast FilledStart DateEnd DateStatus metoprolol tartrate, short acting, (LOPRESSOR) 25 mg tablet Take 12.5 mg by mouth.03/24/2019Active atorvastatin (LIPITOR) 40 mg tablet Take 40 mg by mouth.03/24/2019Active nitroglycerin (NITRODERM) 0.3 mg/hr pt24 Dissolve 0.4 mg under the tongue.03/24/2019Active clopidogrel (PLAVIX) 75 mg tablet Take 75 mg by mouth once daily.Active insulin lispro (HUMALOG KWIKPEN) 100 unit/mL Inject subcutaneously three times daily before meals.Active TRULICITY 1.5 mg/0.5 mL pnij USE DIRECTED ONCE CTAZUG8808/10/2019Active JARDIANCE 25 mg tablet Take 25 mg by mouth once daily.08/10/2019Active lisinopril (ZESTRIL, PRINIVIL) 5 mg tablet Take 5 mg by mouth once daily.07/30/2021ctive pregabalin (LYRICA) 150 mg capsule Take 150 mg by mouth three times daily.08/08/2021ctive fenofibrate nanocrystallized (TRICOR) 145 mg tablet Take 145 mg by mouth once daily.10/31/2022ctive isosorbide mononitrate ER (IMDUR) 30 mg 24 hr tablet Take 30 mg by mouth once daily.Active OZEMPIC 2 mg/dose (8 mg/3 mL) pen injector Inject 2 mg subcutaneously.Active Active Problems ProblemNoted DateDiagnosed DateIron deficiency xfdqpa6709/02/2017Thrombocytosis 04/22/20173160Hywnoihawfsx61/16/2017 Encounters DateTypeDepartmentCare ZcznNumpeshlany93/26/2025Telephone Hematology/Oncology [address] [place] [address] [place] [address] Keira Blunt, machine bobbin winder Bdvdst5702/09/2025Telephone Cancer Appts [address] [place] [address] Elida Ray APRN.PRINT LINE OPERATOR No Showfrom Last 3 Months Immunizations ImmunizationAdministration DatesNext Dueinfluenza (IIV3) vaccine, trivalent (AFLURIA, FLULAVAL, FLUVIRIN, FLUZONE)03/07/2016,06/20/2009influenza (IIV4) vaccine, age 6 mo - 64 yr, quadrivalent (AFLURIA, FLULAVAL, FLUZONE)04/08/2017, 04/07/2016influenza (IIV4) vaccine, age 6 mo - 64 yr, quadrivalent, PF (AFLURIA, FLUARIX, FLULAVAL, FLUZONE)06/04/2023,04/08/2017,04/07/2016influenza (IIV4) vaccine, quadrivalent (AFLURIA, FLULAVAL, FLUZONE)04/08/2017,04/07/2016influenza (LAIV) vaccine, nasal, unspecified ghozttgdrnk52/02/2017novel influenza (H1N1- 09) vaccine, PF06/20/2009tetanus diphtheria pertussis (Tdap) vaccine, age 7+ yr (ADACEL, BOOSTRIX)07/30/2018 Family History Medical HistoryRelationCommentsAlcohol/DrugFatherDiabetesMotherHyperlipidemia MotherHypertensionMothercrohns diseaseMotherendomertosisMotherheart disease Motherwagners diseaseMotherRelationStatusCommentsFatherAliveMotherAlive Social History Tobacco UseTypesPacks/DayYears UsedDateSmoking Tobacco: Every DayCigarettes Started: 04/17/2004Smokeless Tobacco: Never Tobacco Cessation:Ready to Q uit: No Comments:11-20 cigarettes/ day Alcohol UseStandard Drinks/WeekCommentsNo0 (1 standard drink = 0.6 oz pure alcohol)PHQ-2AnswerDate RecordedPHQ-2 vwlhi2954Area Deprivation Index AnswerDate RecordedNational Score (1-100), lower number is lower risk95 11/12/2022State Score (1-10), lower number is lower sfbp2333Data from: https://www.neighborhoodatlas.medicine.[facility].edu/. Last address used for lymcksyxcer[address] [facility]3CommentsNoSex and Gender InformationValueDate RecordedSex Assigned at BirthNot on fileLegal SexFemale 06/18/2013 4:49 PM ESTGender IdentityNot on fileSexual OrientationNot on file Last Filed Vital Signs Vital SignReadingTime TakenCommentsBlood Kgkvprqi762/8401/15/2025 8:39 AM EDT Xwctp063201/15/2025 8:39 AM XLLTsjjbftnflo09.6 ??C (97.9 ??F)01/15/2025 8:39 AM EDTRespiratory Rnhg005801/15/2025 8:39 AM EDTOxygen Cuzzobdruu05%01/15/2025 8:39 AM EDTInhaled Oxygen Concentration--Akqrcc389.2 kg (234 lb 2.1 oz)01/15/2025 8:39 AM LURErnzfz406.6 cm (5' 4.02 )01/15/2025 8:39 AM EDTBody Mass Index40.17 01/15/2025 8:39 AM EDT Plan of Treatment Health MaintenanceDue DateLast DoneCommentsAnxiety Deelnhnng08/25/2006Depression Kxfxxbfqb29/25/2006HIV Lgdocvsao04/25/2006Hepatitis C Yidgjnoto99/25/2006 Hepatitis B Vaccine (1 of 3 - 19+ 3-dose series)11/29/2006Pneumococcal Vaccine (1 of 2 - PCV)11/29/2006Cervical Cancer Gifavoedr21/25/2009HPV Vaccine (1 - 3- dose SCDM series)11/29/2014Covid-19 Vaccine (4 - season)2025 08/26/2023, 12/12/2020, 11/21/2020Influenza Vaccine (#1), 04/08/2017, 04/08/2017, Additional history existsDTaP,Tdap,Td Vaccine (2 - Td or Tdap) Insurance Care Teams Team MemberRelationshipSpecialtyStart DateEnd Christina Arnold CNP [address] [facility] [address] [place] [address] PCP - GeneralFamily Fijaggvj19/10/17 Mark Anthony Carvajal DO [address] [place] [address] Family Wtvgcomn17/8/18
--- OUTSIDE RECORDS SUMMARY | 2025-05-06 11:10 | XMS_ITS | Clinical Summary ---
Author Organization [facility] Address [address] [place] [address] Care Team Providers Care Project Manager Senior Name Role Phone Alena Mark Anthony Stephens Primary Care Provider [phone] Allergies Active AllergyReactionsCriticalityNoted CbvzJuntjfdpBwxfwdrjfnuUsabndl12/20/2022 MdwaagvgwRmnsxib68/20/5867Hrkghvvwvwvyveec36/11/2024 Other Reaction(s): Nausea, vomiting Sulfamethoxazole-TrimethoprimUnknown,GI oturcxpdsao24/25/2020 Nausea and vomiting TrimethoprimGI octdnhyeaea66/22/2020 Medications MedicationSigDispense QuantityRefillsLast FilledStart DateEnd DateStatus metoprolol tartrate (Lopressor) 25 MG tablet Take 25 mg by mouth.07/04/2022ctive atorvastatin (Lipitor) 40 MG tablet Take 40 mg by mouth in the morning.Active clopidogrel (Plavix) 75 MG tablet Take 75 mg by mouth DailyActive fenofibrate (Tricor) 145 MG tablet Take 145 mg by mouth in the morning.10/31/2022ctive Insulin Lispro 100 UNIT/ML solution 11/07/2022ctive lisinopril 5 MG tablet Take 5 mg by mouth DailyActive nitroglycerin (Nitrostat) 0.4 MG SL tablet Active isosorbide mononitrate ER (Imdur) 30 MG 24 hr tablet 09/28/2023ctive ergocalciferol (Vitamin D2) 1.25 MG (13157 UT) capsule Indications:Vitamin D deficiency, unspecifiedTAKE 1 CAPSULE BY MOUTH ONCE A WEEK FOR 90 DAYS 12 capsule 5Active cetirizine (ZyrTEC) 10 MG tablet Indications:Allergic rhinitis, unspecified seasonality, unspecified triggerTake 1 tablet (10 mg) by mouth Daily 90 tablet 5Active pregabalin (Lyrica) 150 MG capsule Indications:Type 2 diabetes mellitus with diabetic polyneuropathy (HCC)Take 1 capsule (150 mg) by mouth in the morning and 1 capsule (150 mg) in the evening and 1 capsule(150 mg) before bedtime. 90 capsule 5Active oxyCODONE (Oxy-IR) 5 MG immediate release capsule 5 mg every 8 (eight) hours if dyguyy215Active docusate sodium (Colace) 100 MG capsule Indications:Drug-induced constipationTake 1 capsule (100 mg) by mouth 2 (two) times a day as needed for constipation for up to 10 days 20 capsule /5Active insulin glargine (Lantus SoloStar) 100 UNIT/ML pen Indications:Type 2 diabetes mellitus with hyperglycemia, with long-term current use of insulin ([facility])Inject 25 Units under the skin at bedtime 22.5 mL /6Active Continuous Glucose Sensor (Dexcom G7 Sensor) [facility] Indications:Type 2 diabetes mellitus with hyperglycemia, with long-term current use of insulin ([facility])1 Bar Every 10 (ten) days 40 each 6Active empagliflozin (Jardiance) 25 MG Indications:Type 2 diabetes mellitus with hyperglycemia, with long-term current use of insulin (HCC)Take 1 tablet (25 mg) by mouth Daily 30 tablet /6Active Tirzepatide (Mounjaro) 5 MG/0.5ML solution auto-injector Indications:Type 2 diabetes mellitus with hyperglycemia, with long-term current use of insulin ([facility])Inject 5 mg under the skin 1 (one) time per week 2 mL 5Active insulin degludec (Tresiba FlexTouch) 100 UNIT/ML injection Indications:Type 2 diabetes mellitus with hyperglycemia, with long-term current use of insulin ([facility])INJECT 25 UNITS SUBCUTANEOUSLY AT BEDTIME. 30 mL 5Active Continuous Blood Gluc Sensor (Dexcom G6 Sensor) [facility] USE DIRECTED CHANGE EVERY 10 DAYS (NEEDS PA)Discontinued (Therapy completed) Continuous Blood Gluc Transmit (Dexcom G6 transmitter) [facility] [place] DIRECTED AND CHANGE EVERY 90 DAYS (NEEDS PA) Discontinued(Therapy completed) Jardiance 25 MG 1 (one) time each day at the same timeDiscontinued(Reorder) fluticasone (Flonase) 50 MCG/ACT nasal spray Twice dailyDiscontinued(Therapy completed) loratadine (Claritin) 10 MG tablet DailyDiscontinued(Therapy completed) pseudoephedrine (Sudafed) 60 MG tablet Indications:Acute dysfunction of right eustachian tubeTake 1 tablet (60 mg) by mouth every 6 (six) hours if needed for congestion 30 tablet Discontinued(Therapy completed) Ozempic, 2 MG/DOSE, 8 MG/3ML solution pen-injector Discontinued(Therapy completed) pregabalin (Lyrica) 150 MG capsule Indications:Type 2 diabetes mellitus with diabetic polyneuropathy (HCC)Take 1 capsule (150 mg) by mouth in the morning and 1 capsule (150 mg) in the evening and 1 capsule(150 mg) before bedtime. 90 capsule Discontinued(Reorder) Continuous Glucose Technical Sales Support Manager (Dexcom G7 Technical Sales Support Manager) device .[id number](Therapy completed) Continuous Glucose Sensor (Dexcom G7 15 Day Sensor) [facility] Discontinued(Therapy completed) Mounjaro 5 MG/0.5ML solution auto-injector Discontinued(Reorder) Insulin Disposable Pump (Omnipod 5 G7 Intro, Gen 5,) kit Indications:Type 2 diabetes mellitus with hyperglycemia, with long-term current use of insulin (HCC)1 kit 1 time for 1 dose 1 kit 10/28/754632/28/2025Expired Insulin Disposable Pump (Omnipod 5 G7 Pods, Gen 5,) [facility] Indications:Type 2 diabetes mellitus with hyperglycemia, with long-term current use of insulin (HCC)6 kits every 3rd (third) day for 1 dose 6 each 51Expired Active Problems ProblemNoted DateDiagnosed FbbcBhkwejknbzcn27/20/2025Acquired hammer toe deformity of lesser toe of left foot02/08/2023cquired hammer toe deformity of lesser toe of right foot02/08/20238143Igsougnlsnk14/04/2023MRSA (methicillin resistant Staphylococcus aureus) ucxakfkmo06/04/2023Skin ulcer of left great toe, limited to breakdown of skin02/08/2023dhesive capsulitis of left shoulder 01/22/2023Impingement syndrome of shoulder region, left01/22/2023Trichomoniasis 01/16/2023urrent sbapur8911/29/2022 Overview (11/29/2022): Added secondary to documentation in Social History. Acute pain of left jqubgorh04/23/2023epression with qvleaqb00/02/2021Anemia 05/28/20191833Zmhgisjh16/21/2019Coronary artery azbqrgt4103/27/2019Infertility due to luteal phase ukbhde4603/18/2019Menorrhagia with irregular cycle03/16/2019 Cpjdytxvnfxs19/28/2019Major depressive disorder, single episode, moderate 08/01/2018Neuropathy of both feet02/25/2018Iron deficiency rpehmv6609/02/2017 Awhgyovevpwi48/16/4350Jwnekjpxwioryg61/16/2017Excessive and frequent edrsprfnjusm65/04/2017Diabetic peripheral hcoqzratzg06/24/2017Hyperglycemia due to type 2 diabetes wvblriat35/24/2017Mixed salsxzcdlkpopy61/24/2017Type 2 diabetes mellitus with other diabetic neurological ddlcwwvypipv88/24/2017Vitamin D dzodvkohfkdud50/24/2017 Encounters DateTypeDepartmentCare TaflNoeptkqpmyd44/28/2025Refill [facility] [address] [place] [address] Amira Preciado LPN 05/04/2025Refill [facility] [address] [place] [address] Amira Preciado LPN Type 2 diabetes mellitus with hyperglycemia, with long-term current use of insulin (HCC)04/30/2025Telephone [facility] [address] [place] [address] Evy Swann MD Med Beckmh2504/27/2025 9:10 AM EDTOffice Visit [facility] [address] [place] [address] Evy Swann MD Type 2 diabetes mellitus with hyperglycemia, with long-term current use of insulin (HCC) (Primary Dx); Vitamin D insufficiency; Primary hypertension; Encounter for dietary consultation; Class 2 severe obesity due to excess calories with serious comorbidity and body mass index (BMI) of36.0 to 36.9 in adult04/27/2025Telephone [facility] [address] [place] [address] Evy Swann MD Med Aftchc4004/26/2025 1:40 PM EDTOffice Visit [facility] [address] [place] [address] Christina Arnold NP Pre-op exam (Primary Dx); Drug-induced constipation; Type 2 diabetes mellitus with diabetic polyneuropathy, with long-term current use of insulin ([facility]); Current smoker; Mixed hyperlipidemia; Hypertension, unspecified type04/26/2025amboo flowsheet [facility] [address] [place] [address] Christina Arnold NP 04/26/20254975Ryojdb66/14/2025Refill [facility] [address] [place] [address] Jyotsna Flynn MA Type 2 diabetes mellitus with diabetic polyneuropathy (HCC)03/31/2025 9:00 AM EDTOffice Visit [facility] [address] [place] [address] Christina Arnold, MATERIAL HANDLER FLOORPERSON Radicular pain of right upper extremity (Primary Dx); Lumbar back pain with radiculopathy affecting right lower extremity; Cervical pain03/31/2025amboo flowsheet [facility] [address] [place] [address] Christina Arnold, MATERIAL HANDLER FLOORPERSON 03/31/20259681Tntnne66/23/2025bstract [facility] [address] [place] [address] Christina Arnold, MATERIAL HANDLER FLOORPERSON 03/30/2025bstract [facility] [address] [place] [address] Mark Anthony Carvajal DO 03/29/2025Telephone [facility] [address] [place] [address] Christina Arnold, MATERIAL HANDLER FLOORPERSON 03/12/2025Refill [facility] [address] [place] [address] Christina Arnold, MATERIAL HANDLER FLOORPERSON Type 2 diabetes mellitus with diabetic polyneuropathy (HCC)02/08/2025Refill [facility] [address] [place] [phone] Riya [place] MA Type 2 diabetes mellitus with diabetic polyneuropathy (HCC)from Last 3 Months Immunizations ImmunizationAdministration DatesNext DueInfluenza, injectable, quadrivalent 04/08/2017,04/07/2016Influenza, injectable, quadrivalent, preservative free 04/08/2017,04/07/2016Influenza, seasonal, ahgqsbweav19/31/2016Novel usmatgenc-P1N1-18, preservative-free06/20/2009Tdap07/30/2018 Family History Medical HistoryRelationNameCommentsNo Known ProblemsBrotherNo Known Problems DaughterAlcohol abuseFatherColon cancerFather's BrotherCrohn's diseaseMother DiabetesMotherEndometriosisMotherHeart diseaseMotherHyperlipidemiaMother HypertensionMotherOtherMotherWagners diseaseNo Known ProblemsSisterNo Known ProblemsSonRelationNameStatusCommentsBrother3 brothersDaughter1 daughterFather AliveFather's BrotherMotherAliveSister1 sisterSon1 son Social History Tobacco UseTypesPacks/DayYears UsedDateSmoking Tobacco: Every [...] drinks on one occasion?Never11/29/2022HQ-2AnswerDate RecordedPatient Health Questionnaire-2 Hfmfs629CommentsUnknownSex and Gender InformationValueDate RecordedSex Assigned at BirthNot on fileLegal SexFemale 09/19/2022 7:01 PM EDTGender IdentityNot on fileSexual OrientationNot on file Last Filed Vital Signs Vital SignReadingTime TakenCommentsBlood Ealuyyjg697/7210 9:07 AM EDT Qtwjb505804/27/2025 9:07 AM ITRUcrcpyeeizv74.9 ??C (98.4 ??F)04/26/2025 1:56 PM EDTRespiratory Xcyo3101 9:07 AM EDTOxygen Xgfqvjemtg66%04/27/2025 9:07 AM EDTInhaled Oxygen Concentration--Cwupib430 kg (221 lb)04/27/2025 9:07 AM EDT Naxtek919.1 cm (5' 5 )04/27/2025 9:07 AM EDTBody Mass Index36.7804/27/2025 9:07 AM EDT Plan of Treatment DateTypeDepartmentCare Team (Latest Contact Info)Uoftxhpfnco74/20/2026 9:40 AM ESTOffice Visit [facility] [address] [place] [address] Evy Swann MD [address] [place] [address] Health MaintenanceDue DateLast DoneCommentsHepatitis B Vaccines (1 of 3 - 19+ 3- dose series)11/29/2006Pneumococcal Vaccine: Pediatrics (0 to 5 Years) and At- Risk Patients (6 to 64 Years) (1 of 2 - PCV)11/29/2006MMR Vaccines (1 of 1 - Standard series)07/18/2009Varicella Vaccines (1 of 2 - 13+ 2-dose series) 07/18/2009HPV Vaccines (1 - 3-dose SCDM series)11/29/2014DTaP/Tdap/Td Vaccines (2 - Td or Tdap)HPV/Mjqiwz44COVID-19 Vaccine ( season)/01/2021, 11/21/2020Influenza Vaccine (#1)/, 06/04/2023, 04/08/2017, Additional history exists Diabetes: Hemoglobin A1C507/03/2025, 09/25/2023, 06/17/2023, Additional history existsCervical Cancer Dezqzhnsl16/06/2026Pap Smear6012/11/2022, 03/18/2019Diabetes: Urine Protein Faqrahdql75/29/170794/, 06/17/2023, 3Diabetes: Retinopathy Wlwxcsbfn86/04/987526/10/2024HIB VaccinesAged OutNo longer eligible based on patient's age to complete this topicHepatitis A VaccinesAged OutNo longer eligible based on patient's age to complete this topic IPV VaccinesAged OutNo longer eligible based on patient's age to complete this topicMeningococcal B VaccineAged OutNo longer eligible based on patient's age to complete this topicMeningococcal VaccineAged OutNo longer eligible based on patient's age to complete this topicRotavirus VaccinesAged OutNo longer eligible based on patient's age to complete this topic Procedures Procedure NamePriorityDate/TimeAssociated DiagnosisCommentsC-PEPTIDERoutine 05/06/2025 9:07 AM EDT Type 2 diabetes mellitus with hyperglycemia, with long-term current use of insulin (HCC) MICROALBUMIN / CREATININE URINE VGUHBGtjdpta99/29/2025 10:04 AM EDT Type 2 diabetes mellitus with hyperglycemia, with long-term current use of insulin ([facility]) POCT DJALAGFSlvmuru74/21/2025 9:05 AM EDT Type 2 diabetes mellitus with hyperglycemia, with long-term current use of insulin ([facility]) HEMOGLOBIN K7EUtvdfao30/09/2025 11:49 AM EDT DIABETIC RETINOPATHY SCREENING - OU - BOTH VNUHAgcgbaa53/04/2025 10:07 AM ESTPAP DLOEDRaafdlq66/06/2023 12:00 AM EDTTHINPREP TIS PAP REFLEX HPV MRNA E6/E7 ([id number])Cqfcbgu3703/18/2019 from Last 3 Months or Most Recently Relevant to Health Maintenance Results * C-peptide (05/06/2025 9:07 AM EDT)Specimen (Source)Anatomical Location / LateralityCollection Method / VolumeCollection TimeReceived TimeBloodVenous blood specimen / Unknown Narrative Authorizing ProviderResult TypeResult StatusEvy MARTÍNEZ BLOOD ORDERABLESFinal ResultPerforming OrganizationAddressCity/State/ZIP CodePhone Number [facility] * Microalbumin / creatinine urine ratio (05/05/2025 10:04 AM EDT)Specimen (Source)Anatomical Location / LateralityCollection Method / VolumeCollection TimeReceived TimeUrineUrine specimen obtained by clean catch procedure / Unknown Narrative Authorizing ProviderResult TypeResult StatusAhmaalen Arslan Shree DANIELSSAINT [facility] URINE ORDERABLESFinal ResultPerforming OrganizationAddressCity/State/ZIP CodePhone Number [facility] * POCT glucose manually resulted (04/27/2025 9:05 AM EDT)ComponentValueRef Range Test MethodAnalysis TimePerformed AtPathologist SignatureGlucose Blood, WOE318 mg/dLSpecimen (Source)Anatomical Location / LateralityCollection Method / VolumeCollection TimeReceived TimeBloodCapillary blood specimen / Unknown 04/27/2025 9:05 AM EDT Narrative Authorizing ProviderResult TypeResult StatusEvy Arslan Shree MDPOINT OF CARE TEST ENTER/EDIT ORDERABLESFinal Result * (ABNORMAL) Hemoglobin A1c (01/13/2025 11:49 AM EDT)ComponentValueRef RangeTest MethodAnalysis TimePerformed AtPathologist SignatureHEMOGLOBIN A1C11.5Specimen (Source)Anatomical Location / LateralityCollection Method / VolumeCollection TimeReceived TimeBloodVenous blood specimen / Unknown Narrative Authorizing ProviderResult TypeResult StatusTondra Mapus NPLAB BLOOD ORDERABLES Edited Result - Final * Diabetic Retinopathy Screening - OU - Both Eyes (09/08/2024 10:07 AM EST) Anatomical RegionLateralityModalityHeadOther Narrative Authorizing ProviderResult TypeResult StatusNoms Provider Unallocated MDOPHTH PHOTOGRAPHYFinal Result * Pap Smear (12/11/2022 12:00 AM EDT)Specimen (Source)Anatomical Location / LateralityCollection Method / VolumeCollection TimeReceived TimeSwabCervical swab / Unknown Narrative Authorizing ProviderResult TypeResult StatusHistorical Provider MDLAB CYTOLOGY ORDERABLESFinal ResultPerforming OrganizationAddressCity/State/ZIP CodePhone Number [facility] * THINPREP TIS PAP REFLEX HPV MRNA E6/E7 ([id number]) (03/18/2019)ComponentValueRef RangeTest MethodAnalysis TimePerformed AtPathologist SignatureCLINICAL INFORMATION:None givenNOMS LEGACY EXTERNAL LABLMP:None givenN[facility] EXTERNAL LABPREV. PAP:None given[facility] EXTER[facility] LABPREV. BX:None given [facility] LABSOURCE:None givenN[facility] EXTERNAL LABSTATEMENT OF ADEQUACY:SEE COMMENTNOMS LEGACY EXTERNAL LABComment: Satisfactory for evaluation. Endocervical/transformation zone component present. INTERPRETATION/RESULT:Negative for intraepithelial lesion or malignancy.[facility] LABCOMMENT:This Pap test has been evaluated with computer assisted technology.[facility] LABCYTOTECHNOLOGIST:SEE COMMENTNOMS LEGACY EXTERNAL LABComment: LLT, CT(ASCP) CT screening location: [employer] [facility], [address] [place] [address]. COMMENTSEE COMMENTNOMS LEGACY EXTERNAL LABComment: EXPLANATORY NOTE: The Pap is a screening test for cervical cancer. It is not a diagnostic test and is subject to false negative and false positive results. It is most reliable when a satisfactory sample, regularly obtained, is submitted with relevant clinical findings and history, and when the Pap result is evaluated along with historic and current clinical information. Specimen (Source)Anatomical Location / LateralityCollection Method / Volume Collection TimeReceived Time03/18/2019 Narrative Authorizing ProviderResult TypeResult StatusLuna LIN LABSFinal ResultPerforming OrganizationAddressCity/State/ZIP CodePhone Number [facility] from Last 3 Months or Most Recently Relevant to Health Maintenance Insurance Care Teams Team MemberRelationshipSpecialtyStart DateEnd Date Mark Anthony Carvajal DO [address] [address] PCP - GeneralFamily Medicine11/22/22
--- OUTSIDE RECORDS SUMMARY | 2025-05-06 11:10 | XMS_ITS | Encounter Summary ---
Author Organization [facility] Address [address] [place] [address] Care Team Providers Care Math And Sciences Department Chair Name Role Phone Mark Anthony Carvajal Primary Care Provider [phone] Encounter Details DateTypeDepartmentCare Team (Latest Contact Info)Opyoynoambr09/20/2025Travel Social History Tobacco UseTypesPacks/DayYears UsedDateSmoking Tobacco: Every [...] drinks on one occasion?Never11/29/2022HQ-2AnswerDate RecordedPatient Health Questionnaire-2 [id number] and Gender InformationValueDate RecordedSex Assigned at BirthNot on fileLegal SexFemale 09/19/2022 7:01 PM EDTGender IdentityNot on fileSexual OrientationNot on file documented as of this encounter Functional Status * Over the past 2 weeks, how often have you been bothered by any of the following problems?QuestionAnswerDate of AssessmentAuthorLittle interest or pleasure in doing thingsNot at all04/26/2025 2:06 PM HUDSONTCChelita lucero LPN Feeling down, depressed, or hopelessNot at all04/26/2025 2:06 PM Chelita Jennings LPNPatient Health Questionnaire-2 [id number] 2:06 PM Chelita Jennings LPN documented as of this encounter Plan of Treatment DateTypeDepartmentCare Team (Latest Contact Info)Pacspxvdcwk90/20/2026 9:40 AM ESTOffice Visit [facility] [address] [place] [address] Evy Swann MD [address] [place] [address] documented as of this encounter Visit Diagnoses Not on filedocumented in this encounter Care Teams Team MemberRelationshipSpecialtyStart DateEnd Date Mark Anthony Carvajal DO [address] [place] [address] PCP - GeneralFamily Medicine11/22/22documented as of this encounter
--- OUTSIDE RECORDS SUMMARY | 2025-05-06 11:10 | XMS_ITS | Encounter Summary ---
Author Organization [facility] Address [address] [place] [address] Phone Care Team Providers Care Corn Sheller Operator Name Role Phone Christina Arnold CAR WASH SUPERVISOR-WATER SOFTENER SERVICER AND INSTALLER Primary Care Provider + Reason for Visit * ReasonOnset DateCommentsAdvice Only04/22/2025 Encounter Details DateTypeDepartmentCare Team (Latest Contact Info)Ovyusrqiltw00/16/2025Telephone [place] [address] [place] [address] Shalonda Capps LPN Advice Only Social History Tobacco UseTypesPacks/DayYears UsedDateSmoking Tobacco: Every DayCigarettes Smokeless Tobacco: CurrentAlcohol UseStandard Drinks/WeekCommentsNever0 (1 standard drink = 0.6 oz pure alcohol)PHQ-2AnswerDate RecordedPatient Health Questionnaire-2 Dmrug218/04/2023CommentsUnknownSex and Gender InformationValueDate RecordedSex Assigned at BirthNot on fileLegal SexFemale 06/01/2022 4:45 PM ESTGender IdentityNot on fileSexual OrientationNot on file documented as of this encounter Miscellaneous Notes * Telephone Encounter - Shalonda Capps LPN - 04/22/2025 2:35 PM EDT To[facility] Sah[facility] called ( Kim [phone] #2) for POC. Patient is scheduled 04/29 for orly of left patella d/t fracture. She will need to hold plavix x 5 prior. Last visit October 2023. Pending visit 05/06/2025. Will add to scheduled Saturday with Nikki PORTER FAX [phone] 04/26/2025 visit pending. To[facility] estrada contacted. 04/27/2024 last time plavix filled . See note regarding refills. Advised unsure of plavix recommendation will be given before visit documented in this encounter Plan of Treatment DateTypeDepartmentCare Team (Latest Contact Info)Nlfdurfjgyo38/13/2026 11:00 AM EDTOffice Visit [facility] [address] [facility] [address] [place] [phone] Nikki Villeda, CAR WASH SUPERVISOR-WATER SOFTENER SERVICER AND INSTALLER [address] [facility] [address] [place] [address] documented as of this encounter Visit Diagnoses Not on filedocumented in this encounter Care Teams Team MemberRelationshipSpecialtyStart DateEnd Date Christina Arnold, CAR WASH SUPERVISOR-WATER SOFTENER SERVICER AND INSTALLER [address] [place] [address] PCP - Sjcejpg53/4/17documented as of this encounter
--- OUTSIDE RECORDS SUMMARY | 2025-05-06 11:10 | XMS_ITS | Encounter Summary ---
Author Organization [facility] Address [address] [facility] [place] [address] Care Team Providers Care Production Manager Name Role Phone Mark Anthony Carvajal Primary Care Provider Reason for Visit * ReasonOnset DateCommentsMed Mcjtgp5505/04/2025 Encounter Details DateTypeDepartmentCare Team (Latest Contact Info)Fmqgmdkeriq13/28/2025Refill [facility] [address] [place] [id number] Amira Preciado LPN Social History Tobacco UseTypesPacks/DayYears UsedDateSmoking Tobacco: Every [...] drinks on one occasion?Never11/29/2022HQ-2AnswerDate RecordedPatient Health Questionnaire-2 [id number] and Gender InformationValueDate RecordedSex Assigned at BirthNot on fileLegal SexFemale 09/19/2022 7:01 PM EDTGender IdentityNot on fileSexual OrientationNot on file documented as of this encounter Plan of Treatment DateTypeDepartmentCare Team (Latest Contact Info)Ujulnxcalcj88/20/2026 9:40 AM ESTOffice Visit [facility] [address] [place] [address] Evy Swann MD [address] [place] [address] documented as of this encounter Visit Diagnoses Not on filedocumented in this encounter Care Teams Team MemberRelationshipSpecialtyStart DateEnd Date Mark Anthony Carvajal DO [address] [place] [address] PCP - GeneralFamily Medicine11/22/22documented as of this encounter
[2025-05-06 11:15] LABS: Hematocrit 27.7 % (36.0-48.0); Hemoglobin 8.1 g/dL (12.0-16.0); Immature Granulocytes Abs Auto 0.03 10^3/uL (0.00-0.03); Immature Granulocytes Pct Auto 0.3 % (0.0-0.5); Lymphocytes Absolute Auto 2.1 10^3/uL (1.2-3.8); Mean Corpuscular HGB Conc 29.2 g/dL (29.9-35.2); Mean Corpuscular Hemoglobin 20.0 pg (26.7-34.0); Mean Corpuscular Volume 68.2 fL (81.0-99.0); Platelet Count 622 10^3/uL (150-450); Red Blood Count 4.06 10^6/uL (4.20-5.40); White Blood Count 9.4 10^3/uL (4.0-11.0)
[2025-05-06 11:28] LABS: Anion Gap 12.6; Blood Urea Nitrogen 11.0 mg/dL (7.0-18.0); Calcium 9.1 mg/dL (8.5-10.1); Carbon Dioxide 26.6 mmol/L (21.0-32.0); Chloride 105 mmol/L (98-107); Estimated GFR (African America >60 (>=60 mL/min/1.73m^2); Estimated GFR (Non-African Ame >60 (>=60 mL/min/1.73m^2); Glucose 146 mg/dL (74-106); Potassium 4.2 mmol/L (3.5-5.1); Sodium 140 mmol/L (136-145)
[2025-05-06] MEDS: CEFAZOLIN SODIUM/DEXTROSE,ISO 2 GM/50 ML PIGGYBACK IV (12:18)
--- NOTE | 2025-05-06 12:21 | PC.NURSE ---
Patient was consented for a peripheral nerve block by Dr. Garcia. Patient was placed on monitors and O2 via nasal cannula and positioned flat and supine. At 1207 time-out was performed per protocol. Patient was medicated per Dr. Garcia at 1208. Bedside ultrasound was used to locate the site for block. Femoral nerve block was started at 1211 and ended at 1214. Patient tolerated the procedure well. Voiced no complaints or concerns Patient remained on O2 and monitors until taken to the OR by the watermasterBeverley RN.
[2025-05-06] MEDS: VANCOMYCIN HCL 1,000 MG VIAL 1000 MG TOPICAL (13:31)
[2025-05-06] MEDS: 0.9 % SODIUM CHLORIDE 1,000 ML 1000 ML IV (13:41)
[2025-05-06] MEDS: BUPIVACAINE HCL 0.5% PF 50 MG/10 ML VIAL INJ (13:43)
--- NOTE | 2025-05-06 14:02 | W.PM.OPNOTE ---
Surgery Operative Note Operative Note Procedure Date: 05/06/25 Time Out Performed: yes Pre-op Diagnosis: Left comminuted patella fracture Post-op Diagnosis: same as pre-op Procedures performed: 1. Open reduction internal fixation left patella fracture Anesthesia: JOVANNA Primary Surgeon: Raul Rivas Complications: none Estimated blood loss (mL): 5 Findings: Comminuted left patella fracture Specimens: none Drains: none Indications for Procedures: Anahi is a 39-year-old female with uncontrolled diabetes, COPD, current smoker, anemia, obesity who presented to outpatient after a fall onto her left knee. She was found to have a comminuted patella fracture. We discussed surgical intervention. We discussed continued conservative management versus surgical intervention. Risks, benefits, complications, procedure detail, convalescence, reasonable expectations were discussed in length. Patient was informed that complication rate is significantly increased secondary to her multiple medical comorbidities. Patient understood. All questions were answered. Patient wishes to pursue surgical intervention, and consent was obtained. Patient was scheduled for surgery. On the initial surgical date, she was found to have significantly elevated hyperglycemia. We felt that it was appropriate to proceed with surgery and we discussed treating her diabetes more intensely with diet. Surgery date was planned for following week. Detailed description of Procedure: Patient was identified in the preoperative area where the correct procedure and laterality was confirmed. Patient was then brought back to the operative suite by OR staff. Patient was then positioned supine on the operating table. Anesthetic medication was administered to the patient. All bony prominences were well-padded and peripheral nerves free of compression. A well-padded tourniquet was placed on the operative extremity. The operative extremity was prepped and draped in normal sterile fashion. A timeout was performed. The operative extremity was exsanguinated and tourniquet was placed at 300 mmHg. Longitudinal incision was made knee. Soft tissue dissection was made down to the level of peritenon. Soft tissue flaps were made and comminuted patella fracture was noted. Sharp excisional debridement was performed on the fracture site with removal of hematoma, fascia, peritenon, bone, periosteum. A ernbw-mi-sbdev bone clamp was used to get excellent reduction of the articular surface which was confirmed on x-ray. K wires were placed in retrograde fashion across the fracture site and 4 oh cannulated screws were placed across the fracture site helping reduce the fracture. Patient had poor bone quality and was felt appropriate to supplement the fixation. A 2.0mm 6-hole plate was placed on the bone and fixed with screws. Final fluoroscopic images were taken. Was irrigated with fluid. 1 g vancomycin powder was placed in the wound. Retinaculum and fascia was closed using #2 FiberWire. Deep tissue was closed using 0 Vicryl suture. Subcutaneous incision was covered with skin was closed using 2-0 Monocryl. A running subcuticular 3-0 Monocryl was used on the skin. Incision was covered with glue. Soft tissue was placed over the incision including 4 x 4's, Webril, Vincent wrap. Patient was placed in a hinged knee brace and locked in extension. Disposition: Patient will be discharged from PACU to home. Appropriate postoperative medications have been prescribed. Patient will maintain hinged knee brace locked in extension for 6 weeks. She is allowed weightbearing as tolerated in the brace. Dressing can be removed in 1 week and she can shower. Patient will follow-up in 10 to 14 days outpatient for suture removal and reevaluation. Attending Doc Confirm Attending Attestation: Yes
[2025-05-06] MEDS: IPRATROPIUM BROMIDE 0.5 MG/2.5 ML VIAL.NEB IH (14:04)
[2025-05-06] MEDS: ACETAMINOPHEN 325 MG TABLET 650 MG PO (14:43)
== END 2025-05-06 14:15 | disposition home or self-care (01) ==
PROVIDERS: Anesthesiology; Visit Provider Physician Assistant
PROC: (CPT 27524; principal; 2025-05-06 12:30)
DX: S82.042A Displaced comminuted fracture of left patella, initial encounter for closed fracture (principal); I25.10 Atherosclerotic heart disease of native coronary artery without angina pectoris; J44.9 Chronic obstructive pulmonary disease, unspecified; E66.9 Obesity, unspecified; D64.9 Anemia, unspecified; W19.XXXA Unspecified fall, initial encounter; E11.42 Type 2 diabetes mellitus with diabetic polyneuropathy; Z79.4 Long term (current) use of insulin; E78.2 Mixed hyperlipidemia; I10 Essential (primary) hypertension; F17.210 Nicotine dependence, cigarettes, uncomplicated; Z95.5 Presence of coronary angioplasty implant and graft; K21.9 Gastro-esophageal reflux disease without esophagitis
CPT/HCPCS: 27524; 36415; 64447; 76000; 80048; 82948; 84703; 85025; 86850; 86900; 86901; 94640; C1713; J0665; J0690; J1100; J1885; J2250; J2371; J2405; J2704; J2795; J3010; J3373